=== PATIENT | female | born 1975 | race Caucasian/White ===

== ENCOUNTER → 2024-05-20 | Outpatient (CLI) | payer BC, SELFPAY | END | disposition home or self-care (01) | PROVIDERS: Referring Provider Nurse Practitioner Family; Visit Provider Nurse Practitioner Family | DX: N39.0 Urinary tract infection, site not specified (principal) | CPT/HCPCS: 87086; 87186 ==

== ENCOUNTER 2024-07-28 17:14 | Emergency (ER) | payer BC, SELFPAY ==
--- NOTE | 2024-07-28 17:19 | EKG_ITS ---
[facility] Test Date: 2024-07-28 Pat Name: BRI UREÑA Department: Room: - Gender: Female Warp Hand: : 1975 Requested By: ED Temporary Provider Order Number: [id number] Reading MD: ED Temporary Provider Measurements Intervals Dolph Rate: 88 P: 41 OK: 158 QRS: -12 QRSD: 101 T: 29 QT: 324 QTc: 393 Interpretive Statements SINUS RHYTHM Compared to ECG 05/04/2023 15:52:12 No significant changes /store/S0/[id number].pdf
[2024-07-28 17:35] VITALS: BP 151/97; PULSE 86; RESP 16; TEMP 36.8; O2SAT 99; BMI 46.6
--- NOTE | 2024-07-28 17:52 | XR_ITS ---
Examination: Duplex scan of the upper extremity, unilateral left Date and time of exam: July 28, 2024 at 1943 hrs. Indications: Left arm swelling beginning one week ago Technique: Duplex scan of the extremity veins using B-mode/grayscale imaging and Doppler spectral analysis and color flow Attention is directed to internal echogenicity, compression and augmentation involving these veins, color flow assessment, spectral analysis Findings: Major deep venous structures in the extremity demonstrate normal course and caliber. There is no evidence of deep vein thrombosis. Normal color flow and spectral analysis Impression: Negative for DVT..
--- NOTE | 2024-07-28 17:52 | XR_ITS ---
Examination: PA lateral chest 2 views Technique: Upright PA lateral chest 2 views Exam date and time: July 28, 2024 1737 hrs. Comparison May 04, 2023 Indications: Chest pain beginning one week ago Findings: Opacity at the left cardiac apex Normal heart size Right lung clear Impression: Recommend lateral chest view follow-up to exclude early pneumonia lingular segment left upper lobe
--- NOTE | 2024-07-28 17:52 | PD.EDADULT ---
ED General RME/HPI General Chief complaint: General Adult/Misc Complain Stated complaint: LEFT ARM PAIN/LEFT BREAST PAIN x7DAYS,JAW PAIN NOW Time Seen by Provider: 07/28/24 17:39 Arrival date/time: 07/28/24 17:14 RME / HPI RME / HPI narrative: 48-year-old female patient with significant history of anxiety, diabetes mellitus, morbid obesity, came in for evaluation regarding left-sided chest pain. Patient having left-sided chest pain for 1 week, it comes and goes, radiating to the left upper jaw and left upper extremity. No complaint of pain also to the left upper extremity. Denies any swelling. Denies any cough denies any fever denies any other complaints. No medications taken prior to arrival. Related Data Home Medications ?Medication ?Instructions ?Recorded ?Confirmed Pantoprazole Sodium 40 mg PO DAILY ##0 09/08/10 04/08/18 metformin 500 mg tablet 500 mg PO BID ##0 09/08/10 04/08/18 (Glucophage) ibuprofen 800 mg tablet 800 mg PO TID 03/03/18 04/08/18 norgestimate-ethinyl estradiol 1 tab PO QDAY 03/03/18 04/08/18 0.18 mg/0.215mg/0.25mg-35 mcg(28)tablet (Ortho Tri-Cyclen (28)) Allergies Allergy/AdvReac Type Severity Reaction Status Date / Time latex Allergy Severe CRACKS Verified 07/28/24 17:18 SKIN OPEN Review of Systems Review of Systems Narrative Review of Systems: Review of system reviewed and within normal limits except mentioned in HPI ED Exam Narrative Physical exam: VITAL SIGNS: Reviewed. GENERAL APPEARANCE: Alert and interactive, follows commands, no acute distress, HEAD AND FACE: Non-traumatic. ENT: PERRL, pink conjunctivitis, eyelid no trauma, Mucous membrane moist. NECK: Supple, nontender, no nuchal rigidity. CHEST: No tenderness, no crepitus, no paradoxical movement, no retractions. LUNGS: Clear, well ventilated, symmetric, no rales, no wheezing, no ronchi, no stridor, good breath sounds bilaterally. HEART: Regular rate, regular rhythm, no murmur, no gallops. ABDOMEN: Soft, positive bowel sounds, nondistended, no guarding, nontender, no rebound, no masses, RECTAL: Deferred. GENITAL: Deferred. NEUROLOGICAL: Gross motor function intact sensory function intact, Appropriate for age. MUSCULOSKELETAL: low back nontender, full range of motion. EXTREMITIES: Left upper extremity tenderness, no swelling, full range of motion. SKIN: Color pink, dry, no rash, no lacerations, no abrasions, no contusions. LYMPHATICS: Deferred. Course Quality Measures none Orders Category Date Time Status EKG (ED ONLY) *Do not use* NOW Care 07/28/24 17:19 Completed EKG (ED Only) Stat Exams 07/28/24 17:19 Ordered US venous doppler UE LT Stat Exams 07/28/24 17:52 Completed XR chest 1V Stat Exams 07/28/24 17:52 Completed B-Type Natriuretic Peptide Stat Lab 07/28/24 18:06 Completed CBC Stat Lab 07/28/24 18:06 Completed Comprehensive Metabolic Panel Stat Lab 07/28/24 18:06 Completed Partial Thromboplastin Time Stat Lab 07/28/24 18:06 Completed Troponin I Stat Lab 07/28/24 18:06 Completed Aspirin Med 07/28/24 17:52 Discontinued 325 mg PO X1 ONE Vital Signs Vital signs: Vital Signs Temperature 98.2 F 07/28/24 17:35 Pulse Rate 86 07/28/24 17:35 Respiratory Rate 16 07/28/24 17:35 Blood Pressure 151/97 H 07/28/24 17:35 Pulse Oximetry (%) 99 07/28/24 17:35 Oxygen Delivery Method Room Air 07/28/24 17:35 [facility] Patient data External records reviewed:: None Clinical information provided by:: patient Social determinants that could affect healthcare access:: none Patient has the following chronic illnesses:: anxiety How is presenting disease/condition affected by chronic disease/condition?: exacerbated by Evaluation data The following diagnostics were reviewed and interpreted by me:: lab results, radiology exam(s) and EKG tracing(s) Lab and/or radiology exams considered but not ordered:: None Interpretation Summary: Patient workup today all came back normal. Including normal troponin EKG showed normal sinus rhythm ventricular at of 88 bpm, no ST segment elevation depression noted. Chest x-ray showed possible pneumonia however patient is not having any cough or fever. Medications Medications considered but not ordered:: None Medication administrations:: Medication Administration History Discontinued Medications Aspirin (Aspirin 325 Mg Tablet) 325 mg PO X1 ONE Stop: 07/28/24 17:53 Last Admin: 07/28/24 18:07 Dose: 325 mg Documented By: JULIAN Aspirin Consultations Consultation(s) initiated? (list below): No Diagnosis Differential Diagnosis ED Complaint MDM: Chest pain, ACS, DVT Most likely diagnosis given after review of the tests above:: Chest pain noncardiac Admission Indicated Admission indicated?: not indicated Explain why admission is indicated or not indicated:: None Admission Request Was there a request for admission?: No Disposition Plan Disposition Plan: Discharge Discharge Attestation Discharge Attestation: The patient and all family members were given an opportunity to ask questions and understood the discharge instructions. Discharge instructions specifically effects, indications for sooner follow up or return to the emergency department, and the expected course of current diagnosis. Patient condition: Stable Medical Decision Making MDM Narrative MDM Narrative: 48-year-old female patient with significant history of anxiety, diabetes mellitus, morbid obesity, came in for evaluation regarding left-sided chest pain. Patient having left-sided chest pain for 1 week, it comes and goes, radiating to the left upper jaw and left upper extremity. No complaint of pain also to the left upper extremity. Denies any swelling. Denies any cough denies any fever denies any other complaints. No medications taken prior to arrival. Patient's cardiac workup, all came back unremarkable. EKG also came back unremarkable. Troponin is normal. Patient is probably having anxiety. Chest x-ray showed possible pneumonia however patient is not having any cough ultrasound of the left upper extremity is negative for DVT Differential Diagnosis Differential Diagnosis: Chest pain, ACS, DVT Lab Data 07/28/24 18:06 07/28/24 18:06 Labs: Lab Results 07/28/24 Range/Units 18:06 WBC 11.1 H (3.6-11.0) Thou/mm3 RBC 4.10 (4.00-5.20) Miln/mm3 Hgb 11.6 L (12.0-16.0) g/dL Hct 35.2 L (36.0-46.0) % MCV 86 (80-100) fL MCH 28.3 (25.0-35.0) pg MCHC 33.0 (31.0-37.0) g/dl RDW Std Deviation 44.2 (36.4-46.3) fL Plt Count 348 (140-440) Thou/mm3 Neut % (Auto) 64 (37-80) % Lymph % (Auto) 26 (10-50) % [place] % (Auto) 7 (0-12) % Eos % (Auto) 2 (0-10) % Baso % (Auto) 1 (0-2.5) % Neut # (Auto) 7.1 (1.8-7.7) Thou/mm3 Lymph # (Auto) 2.9 (1.0-4.8) Thou/mm3 [place] # (Auto) 0.7 (0.0-0.8) Thou/mm3 Eos # (Auto) 0.3 (0.0-0.5) Thou/mm3 Baso # (Auto) 0.1 (0.0-0.2) Thou/mm3 Immature Gran # (Auto) 0.05 H (0.00-0.00) Thou/mm3 Absolute Nucleated RBC 0.00 (0.00-0.00) Thou/mm3 Immature Gran % 1 H (0-0) % Nucleated RBC % 0 (0) /100 WBC APTT 22.2 (22.0-36.0) Seconds Sodium 139 (136-145) mMol/L Potassium 4.3 (3.4-5.1) mMol/L Chloride 104 (98-107) mMol/L Carbon Dioxide 25.0 (20.0-31.0) mMol/L Anion Gap 10 (7-16) BUN 18 (9-23) mg/dL Creatinine 1.0 (0.6-1.3) mg/dL Estim Creat Clear Calc 99.9 (>60) mL/min eGFR > 60 (60 - ) See Note BUN/Creatinine Ratio 18 (12-20) Ratio Glucose 135 H (74-106) mg/dL Calculated Osmolality 281 (275-295) Calcium 10.4 (8.3-10.6) mg/dL Corrected Calcium 10.4 H (8.5-10.1) mg/dL Total Bilirubin 0.4 (0.3-1.2) mg/dL AST 58 H (0-34) U/L ALT 74 H (10-49) U/L Alkaline Phosphatase 76 (46-116) U/L Troponin I < 0.002 (0.0-0.045) ng/mL B-Natriuretic Peptide < 20 (0-100) pg/mL Total Protein 7.4 (5.7-8.2) gm/dL Albumin 4.6 (3.5-5.0) gm/dL Globulin 2.8 (2.3-3.5) gm/dL Albumin/Globulin Ratio 1.6 (1.2-2.2) Discharge Plan Plan Patient Disposition: HOME (Self Care) Disposition Comment: Stable Prescriptions/Referrals Prescriptions/Med Rec: No Action metformin [Glucophage] 500 MG tablet 500 mg PO BID Qty: 0 Pantoprazole Sodium 40 MG TABLET.DR 40 mg PO DAILY Qty: 0 ibuprofen 800 mg Tablet 800 mg PO TID norgestimate-ethinyl estradiol [Ortho Tri-Cyclen (28)] 0.18/0.215/0.25 mg-35 mcg (28) Tablet 1 tab PO QDAY Problem List Clinical Impression: Non-cardiac chest pain, Anxiety Patient/Caregiver Discharge Instructions Discharge Activity: activity as tolerated Education Materials: ED Anxiety Reaction Additional Instructions: Thank you for the opportunity for serving you today. You are stable for discharged . You are advised to: Follow-up with your PCP in 1 to 2 days Return to ED for worsening of symptoms Increase oral fluids Print Language: Icelandic Stand Alone Forms: Katerina Award Info., Patient Portal Info Letter XOCHITL/ABIGAIL Supervising Physician XOCHITL/ABIGAIL Supervising Physician: MD ede
[2024-07-28] MEDS: Aspirin 325 MG TABLET PO (18:07)
[2024-07-28 18:27] LABS: Basophils # (Auto) 0.1 Thou/mm3 (0.0-0.2); Basophils % (Auto) 1 % (0-2.5); Eosinophils # (Auto) 0.3 Thou/mm3 (0.0-0.5); Eosinophils % (Auto) 2 % (0-10); Hematocrit 35.2 % (36.0-46.0); Hemoglobin 11.6 g/dL (12.0-16.0); Immature Granulocytes % (Auto) 1 % (0-0); Immature Granulocytes Auto 0.05 Thou/mm3 (0.00-0.00); Lymphocytes # (Auto) 2.9 Thou/mm3 (1.0-4.8); Lymphocytes % (Auto) 26 % (10-50); Mean Corpuscular Hemoglobin 28.3 pg (25.0-35.0); Mean Corpuscular Volume 86 fL (80-100); Monocytes # (Auto) 0.7 Thou/mm3 (0.0-0.8); Monocytes % (Auto) 7 % (0-12); Neutrophils # (Auto) 7.1 Thou/mm3 (1.8-7.7); Neutrophils % (Auto) 64 % (37-80); Nucleated Red Blood Cell % 0 /100 WBC (0); Platelet Count 348 Thou/mm3 (140-440); RDW Standard Deviation 44.2 fL (36.4-46.3); White Blood Count 11.1 Thou/mm3 (3.6-11.0)
[2024-07-28 18:31] LABS: B-Type Natriuretic Peptide < 20 pg/mL (0-100)
[2024-07-28 18:32] LABS: Alanine Aminotransferase 74 U/L (10-49); Albumin, Serum 4.6 gm/dL (3.5-5.0); Albumin/Globulin Ratio 1.6 (1.2-2.2); Alkaline Phosphatase 76 U/L (46-116); Anion Gap 10 (7-16); Aspartate Amino Transferase 58 U/L (0-34); BUN/Creatinine Ratio 18 Ratio (12-20); Bilirubin,Total 0.4 mg/dL (0.3-1.2); Blood Urea Nitrogen 18 mg/dL (9-23); Calcium 10.4 mg/dL (8.3-10.6); Calcium (Corrected) 10.4 mg/dL (8.5-10.1); Chloride 104 mMol/L (98-107); Estimated Creatinine Clearance 99.9 mL/min (>60); Globulin 2.8 gm/dL (2.3-3.5); Glucose 135 mg/dL (74-106); Osmolality,Calculated 281 (275-295); Potassium 4.3 mMol/L (3.4-5.1); Sodium 139 mMol/L (136-145); Total Protein 7.4 gm/dL (5.7-8.2); Troponin I < 0.002 ng/mL (0.0-0.045); eGFR > 60 See Note
[2024-07-28 18:55] LABS: Partial Thromboplastin Time 22.2 Seconds (22.0-36.0)
[2024-07-28 21:51] VITALS: BP 158/89; PULSE 76; RESP 15; TEMP 36.6; O2SAT 97
--- NOTE | 2024-07-28 21:55 | PC.NURSE ---
Pt to room 12 at this time from lobby; assumed care.
--- NOTE | 2024-07-28 22:05 | PC.NURSE ---
SHANNON AtkinsP at the bedside at this time.
== END 2024-07-28 22:17 | disposition home or self-care (01) ==
LOC: SERX 22:29
PROVIDERS: Nurse Practitioner Family; Emergency Provider Emergency Medicine
DX: F41.9 Anxiety disorder, unspecified (principal); R07.89 Other chest pain
CPT/HCPCS: 36415; 71045; 80053; 83880; 84484; 85025; 85730; 93005; 93971; 99284; A9270

== ENCOUNTER 2024-12-02 00:45 | Emergency (ER) | payer BC, SELFPAY ==
[2024-12-02 00:46] VITALS: BMI 46.5
[2024-12-02 01:10] VITALS: BP 130/82; PULSE 88; RESP 18; TEMP 36.6; O2SAT 99
--- NOTE | 2024-12-02 01:18 | XR_ITS ---
EXAMINATION: Ankle, right 3 views . Technique: Ankle AP, oblique, lateral 3 views Date and time of exam: Dec 02 2024 1338 hours INDICATIONS: Injury to the ankle today, ankle pain FINDINGS: No acute fracture Bimalleolar soft tissue swelling No ankle dislocation. IMPRESSION: No acute fracture
--- NOTE | 2024-12-02 01:19 | PD.EDANKLE ---
Lower Extremity Injury RME/HPI General Chief Complaint: Ankle/Foot Injury Stated Complaint: R ANKLE INURY Time Seen by Provider: 12/02/24 01:17 Arrival date/time: 12/02/24 00:45 49F with history of HTN presents to ED with R ankle pain/swelling after she twisted it 1 week ago. Limitations: no limitations Related Data Home Medications ?Medication ?Instructions ?Recorded ?Confirmed Pantoprazole Sodium 40 mg PO DAILY ##0 09/08/10 04/08/18 metformin 500 mg tablet 500 mg PO BID ##0 09/08/10 04/08/18 (Glucophage) ibuprofen 800 mg tablet 800 mg PO TID 03/03/18 04/08/18 norgestimate-ethinyl estradiol 1 tab PO QDAY 03/03/18 04/08/18 0.18mg/0.215mg/0.25mg-0.035mg(28)tablet (Ortho Tri-Cyclen (28)) Allergies Allergy/AdvReac Type Severity Reaction Status Date / Time latex Allergy Severe CRACKS Verified 12/02/24 00:51 SKIN OPEN Review of Systems Review of Systems Systems Reviewed: All systems reviewed, normal except as documented Constitutional Constitutional: Reports system reviewed and no additional complaints, except as documented, Denies fever(s) and Denies headache(s) ENT Ears, Nose, Mouth, and Throat: Denies disequilibrium and Denies headache(s) Cardiovascular Cardiovascular: Reports system reviewed and no additional complaints, except as documented, Denies chest pain and Denies dyspnea Respiratory Respiratory: Reports system reviewed and no additional complaints, except as documented, Denies cough and Denies dyspnea Gastrointestinal Gastrointestinal: Reports system reviewed and no additional complaints, except as documented, Denies abdominal pain, Denies nausea and Denies vomiting Musculoskeletal Musculoskeletal: Reports as per HPI, Reports arthralgias and Reports joint swelling Neurologic Neurologic: Reports system reviewed and no additional complaints, except as documented, Denies confusion, Denies disequilibrium and Denies headache(s) Psychiatric Psychiatric: Denies confusion Past Medical History Past Medical History NEUROLOGIC: Negative Neurological Disorders or Seizures CARDIAC: Positive Cardiac Disorders, Hypercholesterolemia and Hypertension; Negative Congestive Heart Failure RESPIRATORY: Negative Chronic Obstructive Pulmonary Disease (COPD) GASTROINTESTINAL: Positive Gastrointestinal Disorders (HIATAL HERNIA) and Gastroesophageal Reflux Disease GENITOURINARY: Negative Genitourinary Disorders or Renal Disease MUSCULOSKELETAL: Positive Musculoskeletal Disorders and Arthritis ENDOCRINE: Positive Diabetes Mellitus Type 2 (PRE-DIABETIC); Negative Diabetes Mellitus Type 1 HEMATOLOGIC: Negative Blood Disorders OTHER HISTORY: Negative Blood Transfusions, Blood Transfusion Reaction or Anesthesia Reactions Family History FAMILY HISTORY: Positive Family Cardiac Disorders (MOTHER- MVP) Surgical History SURGICAL: Positive Tonsillectomy and Abdominal Surgery Social History SMOKING STATUS: Never smoker ED Exam General Limitations: Present no limitations General appearance: Present alert and in no apparent distress Head Head exam: Present atraumatic Eye Eye exam: Present normal appearance, PERRL and EOMI ENT ENT exam: Present normal exam, normal oropharynx and mucous membranes moist Neck Neck exam: Present normal inspection, full ROM and trachea midline Chest Chest inspection: Present normal inspection and symmetric chest wall rise Respiratory Respiratory exam: Present normal lung sounds bilaterally Cardiovascular Cardiovascular exam: Present regular rate, normal rhythm and normal heart sounds Abdominal Exam Abdominal exam: Present soft and normal bowel sounds Extremities Exam Extremities exam: Present full ROM Expanded Lower Extremity Exam Foot/toe exam: Present tenderness (R) and swelling Back Exam Back exam: Present normal inspection and full ROM Neurological Exam Neurological exam: Present alert, oriented X3 and CN II-XII intact Psychiatric Psychiatric exam: Present normal affect and normal mood Skin Skin exam: Present warm, dry, intact and normal color Course Quality Measures none Orders Category Date Time Status Splint / Immobilizer STAT Care 12/02/24 02:35 Active XR ankle comp RT min 3V Stat Exams 12/02/24 01:18 Taken Ketorolac Inj [Toradol Inj] Med 12/02/24 02:41 Once 60 mg IM X1 ONE Vital Signs Vital signs: Vital Signs Temperature 98 F 12/02/24 01:10 Pulse Rate 88 12/02/24 01:10 Respiratory Rate 18 12/02/24 01:10 Blood Pressure 130/82 12/02/24 01:10 Pulse Oximetry (%) 99 12/02/24 01:10 Oxygen Delivery Method Room Air 12/02/24 01:10 O2 at 99% on RA and WNLs Extremity Injury, Lower MDM Narrative MDM Narrative:: 49F with history of HTN presents to ED with R ankle pain/swelling after she twisted it 1 week ago. Physical exam reveals R ankle swelling and tenderness. ROM limited. Skin is warm. Patient is afebrile, calm, and alert. Wet XR read no fx pending official report. Will splint just in case. Patient data External records reviewed:: [facility] previous records Clinical information provided by:: patient Social determinants that could affect healthcare access:: none Patient has the following chronic illnesses:: HTN How is presenting disease/condition affected by chronic disease/condition?: exacerbated by Evaluation data The following diagnostics were reviewed and interpreted by me:: radiology exam(s) Lab and/or radiology exams considered but not ordered:: ordered Interpretation Summary: above Medications / Prescriptions Medications or Prescriptions considered but not ordered:: ordered Medication administrations:: Medication Administration History Ketorolac Tromethamine (Ketorolac Inj 60 Mg/2 Ml Vial) 60 mg IM X1 ONE Stop: 12/02/24 02:42 above Consultations Consultation(s) initiated? (list below): No Diagnosis Extremity Injury, Lower Differential Diagnosis: ankle sprain and strain, acute internal derangement of knee, puncture wound of foot, fracture of toe and ankle fracture Most likely diagnosis given after review of the tests above:: ankle swelling Admission Indicated Admission indicated?: not indicated Admission Request Was there a request for admission?: No Disposition Plan Disposition Plan: Discharge Discharge Attestation Discharge Attestation: The patient and all family members were given an opportunity to ask questions and understood the discharge instructions. Discharge instructions specifically effects, indications for sooner follow up or return to the emergency department, and the expected course of current diagnosis. Patient condition: Stable Discharge Plan Plan Patient Disposition: HOME (Self Care) Discharge Disposition comment: Stable Prescriptions/Referrals Prescriptions/Med Rec: No Action metformin [Glucophage] 500 MG tablet 500 mg PO BID Qty: 0 Pantoprazole Sodium 40 MG TABLET.DR 40 mg PO DAILY Qty: 0 ibuprofen 800 mg Tablet 800 mg PO TID norgestimate-ethinyl estradiol [Ortho Tri-Cyclen (28)] 0.18/0.215/0.25 mg-35 mcg (28) Tablet 1 tab PO QDAY Problem List Clinical Impression: Ankle swelling Patient/Caregiver Discharge Instructions Education Materials: ED Ankle Sprain (Adult) Additional Instructions: Please follow-up with PCP within 24-48 hours and return immediately if symptoms worsen. If problem persists, recommend outpatient PT and/or MRI follow-up. In the meantime, rest, use ice/heat, and/or compression. Print Language: Wallisian Stand Alone Forms: Patient Portal Info Letter PA/IT SECURITY MANAGER Supervising Physician XOCHITL/ABIGAIL Supervising Physician: Dr. Nunez
[2024-12-02] MEDS: KETOROLAC INJ 60 MG/2 ML VIAL IM (03:28)
--- NOTE | 2024-12-02 03:36 | PC.NURSE ---
SPLINT APPLIED BY FULFILLMENT SPECIALIST
== END 2024-12-02 03:55 | disposition home or self-care (01) ==
LOC: SERX 04:09
PROVIDERS: Emergency Provider Emergency Medicine; PCP Family Medicine
DX: S99.911A Unspecified injury of right ankle, initial encounter (principal); X50.1XXA Overexertion from prolonged static or awkward postures, initial encounter
CPT/HCPCS: 73610; 99283; J1885

== ENCOUNTER → 2025-01-23 | Outpatient (CLI) | payer BC, SELFPAY ==
--- NOTE | 2025-01-23 08:15 | XR_ITS ---
Examination: MRI right foot without contrast Date and time of exam: January 23, 2025 0905 hours INDICATIONS: Pain and swelling beginning December 02, 2024 Technique: Multiple axial sagittal and coronal images of the right foot have been obtained with the Siemens high-resolution 1.5 Jennifer MRI scanner. Images obtained include T2-weighted fat-suppressed sagittal sections, TR 3500, TE 46, T2 weighted coronal fat suppressed images, TR 3050, TE 84, T2-weighted transverse fat suppressed images, TR 3260, TE 63, proton density transverse images, TR 4720 TE 46, and T1 weighted coronal images, TR 560, TE 13. Findings: Significant thickening Achilles tendon Mild to moderate plantar fasciitis Large ankle effusion with increased signal in the effusion Increased signal in the distal tibia and distal fibula as well as talus Extensive edema dorsum of the foot Diffuse flexor tendinitis IMPRESSION: Achilles tendinosis Mild to moderate plantar fasciitis Large ankle effusion with increased signal in the effusion, differential would include pigmented villonodular synovitis Increased signal in the distal tibia and distal fibula and talus, consider Charcot joint Recommend this patient return for MRI foot post intravenous contrast
== END | disposition home or self-care (01) ==
PROVIDERS: PCP Nurse Practitioner Family; Referring Provider Nurse Practitioner Family; Visit Provider Nurse Practitioner Family
DX: M76.61 Achilles tendinitis, right leg (principal); M72.2 Plantar fascial fibromatosis; M25.471 Effusion, right ankle
CPT/HCPCS: 73718

== ENCOUNTER → 2025-05-03 | Outpatient (CLI) | payer BC, SELFPAY | END | disposition home or self-care (01) | PROVIDERS: PCP Nurse Practitioner Family; Referring Provider Nurse Practitioner Family; Visit Provider Nurse Practitioner Family | DX: N39.0 Urinary tract infection, site not specified (principal) | CPT/HCPCS: 87086 ==

== ENCOUNTER → 2025-05-18 | Outpatient (CLI) | payer BC, SELFPAY ==
[2025-05-18 14:29] LABS: Collection Type, Urine Clean Catch; RBC,Urine 0 /hpf (0-3)
[2025-05-18 16:18] LABS: Bacteria,Urine Rare; Bilirubin,Urine Negative (Negative); Blood,Urine Negative (Negative); Clarity,Urine Clear (Clear/Hazy); Color,Urine Lt-Yellow (Lt Yel-Yel); Glucose, Urine Negative (Negative); Ketones,Urine Negative (Negative); Leukocyte Esterase,Urine Negative (Negative); Nitrite,Urine Negative (Negative); PH,Urine 6.5 (5.0-7.0); Protein,Urine Negative (Neg - Trace); Specific Gravity,Urine 1.011 (1.001-1.035); Squamous Epithelial Cell,Urine < 1 /hpf (0-5); Urobilinogen,Urine Negative mg/dL (0.0-1.0); WBC,Urine < 1 /hpf (0-5)
== END | disposition home or self-care (01) ==
LOC: SLDO 14:21
PROVIDERS: PCP Family Medicine; Referring Provider Family Medicine; Visit Provider Family Medicine
DX: N39.0 Urinary tract infection, site not specified (principal)
CPT/HCPCS: 81001; 87086

== ENCOUNTER 2025-06-12 17:00 | Inpatient (IN) | payer BC, SELFPAY ==
[2025-06-12 17:00] VITALS: BMI 43.2
--- NOTE | 2025-06-12 17:46 | XR_ITS ---
Examination: Duplex scan of the lower extremity, unilateral right Date and time of exam: June 12, 2025, 1754 hours INDICATIONS: Right ankle and leg swelling and pain beginning November 2024 Technique: Duplex scan of the extremity veins using B-mode/grayscale imaging and Doppler spectral analysis and color flow Attention is directed to internal echogenicity, compression and augmentation involving these veins, color flow assessment, spectral analysis Findings: Major deep venous structures in the extremity demonstrate normal course and caliber. Leg edema precludes diagnostic visualization right peroneal vein There is no evidence of deep vein thrombosis. Normal color flow and spectral analysis Impression: No DVT demonstrated
--- NOTE | 2025-06-12 17:46 | XR_ITS ---
EXAMINATION: Ankle, right 3 views. Technique: Ankle AP, oblique, lateral 3 views Date and time of exam: June 12, 2025, 1824 hours, comparison December 02, 2024 INDICATIONS: Ankle pain and swelling beginning 4 days ago FINDINGS: Moderate narrowing tibiotalar joint Bony erosions involving the dome of the talus and distal articulating surface of the tibia Large ankle effusion as well as prominent bimalleolar soft tissue swelling IMPRESSION: Suspicious for osteomyelitis tibiotalar joint, recommend MRI ankle without contrast follow-up Consider fluoroscopically-guided aspiration of the ankle joint follow-up
--- NOTE | 2025-06-12 17:47 | PD.EDRME ---
Rapid Medical Screening Exam RME Arrival date/time: 06/12/25 17:00 49-year-old female with no known medical history presents to the emergency room with a chief complaint of right lower extremity swelling and tenderness x 4 months I have greeted and performed a focused initial assessment of this patient. A comprehensive ED assessment and evaluation of the patient, analysis of all test results, and completion of the medical decision making process will be conducted by additional ED providers. Chief Complaint: Ankle/Foot Injury Time Seen by Provider: 06/12/25 17:32 Vital signs reviewed by provider: Yes Exam: Right lower extremity swelling, tenderness, erythema Clear bilateral Clinical Impression: Cellulitis/DVT
[2025-06-12 17:50] VITALS: BP 169/101; PULSE 114; RESP 19; TEMP 37.8; O2SAT 98
[2025-06-12 18:47] LABS: Lactate (Lactic Acid) 1.2 mMol/L (0.4-2.0)
[2025-06-12] MEDS: ACETAMINOPHEN 500 MG TABLET 1000 MG PO (18:47)
[2025-06-12 18:57] LABS: Basophils # (Auto) 0.0 Thou/mm3 (0.0-0.2); Basophils % (Auto) 0 % (0-2.5); Eosinophils # (Auto) 0.0 Thou/mm3 (0.0-0.5); Eosinophils % (Auto) 0 % (0-10); Hematocrit 35.3 % (36.0-46.0); Hemoglobin 11.5 g/dL (12.0-16.0); Immature Granulocytes Auto 0.06 Thou/mm3 (0.00-0.00); Lymphocytes # (Auto) 1.1 Thou/mm3 (1.0-4.8); Lymphocytes % (Auto) 7 % (10-50); Mean Corpuscular HGB Conc 32.6 g/dl (31.0-37.0); Mean Corpuscular Hemoglobin 28.2 pg (25.0-35.0); Mean Corpuscular Volume 87 fL (80-100); Monocytes # (Auto) 1.2 Thou/mm3 (0.0-0.8); Monocytes % (Auto) 8 % (0-12); Neutrophils # (Auto) 13.4 Thou/mm3 (1.8-7.7); Neutrophils % (Auto) 85 % (37-80); Nucleated Red Blood Cell # 0.00 Thou/mm3 (0.00-0.00); Nucleated Red Blood Cell % 0 /100 WBC (0); Platelet Count 346 Thou/mm3 (140-440); RDW Standard Deviation 43.6 fL (36.4-46.3); Red Blood Count 4.08 Miln/mm3 (4.00-5.20); White Blood Count 15.8 Thou/mm3 (3.6-11.0)
[2025-06-12 19:08] LABS: Sed Rate (ESR) 53 mm/hr (0-20)
[2025-06-12 19:14] LABS: Collection Type, Urine Clean Catch
[2025-06-12 19:25] LABS: Amorphous Crystals,Urine Present (Absent); Bilirubin,Urine Negative (Negative); Blood,Urine Negative (Negative); Clarity,Urine Clear (Clear/Hazy); Color,Urine Yellow (Lt Yel-Yel); Glucose, Urine Negative (Negative); Hyaline Casts,Urine 2 /hpf (0-1); Ketones,Urine Trace (Negative); Leukocyte Esterase,Urine Positive (Negative); Nitrite,Urine Negative (Negative); PH,Urine 6.0 (5.0-7.0); Protein,Urine 1+ (Neg - Trace); RBC,Urine 3 /hpf (0-3); Specific Gravity,Urine 1.029 (1.001-1.035); Squamous Epithelial Cell,Urine 1 /hpf (0-5); Urobilinogen,Urine Negative mg/dL (0.0-1.0); WBC,Urine 2 /hpf (0-5)
[2025-06-12 19:42] LABS: Alanine Aminotransferase 11 U/L (10-49); Albumin, Serum 4.8 gm/dL (3.5-5.0); Albumin/Globulin Ratio 1.7 (1.2-2.2); Alkaline Phosphatase 86 U/L (46-116); Anion Gap 9 (7-16); Aspartate Amino Transferase < 10 U/L (0-34); BUN/Creatinine Ratio 11 Ratio (12-20); Bilirubin,Total 0.5 mg/dL (0.3-1.2); Blood Urea Nitrogen 11 mg/dL (9-23); Calcium 10.0 mg/dL (8.3-10.6); Calcium (Corrected) 10.0 mg/dL (8.5-10.1); Carbon Dioxide 27.3 mMol/L (20.0-31.0); Chloride 103 mMol/L (98-107); Creatinine (Component) 1.0 mg/dL (0.6-1.3); Estimated Creatinine Clearance 88.4 mL/min (>60); Globulin 2.9 gm/dL (2.3-3.5); Glucose 185 mg/dL (74-106); Osmolality,Calculated 281 (275-295); Potassium 3.9 mMol/L (3.4-5.1); Procalcitonin 0.15 ng/ml (0.0-0.49); Sodium 139 mMol/L (136-145); Total Protein 7.7 gm/dL (5.7-8.2); eGFR > 60 See Note
--- NOTE | 2025-06-12 21:28 | EDNOTE_ITS ---
ED General RME/HPI General Chief complaint: Ankle/Foot Injury Stated complaint: right foot swollen Time Seen by Provider: 06/12/25 17:32 Arrival date/time: 06/12/25 17:00 RME / HPI RME / HPI narrative: 06/12/25 17:00 49-year-old female with no known medical history presents to the emergency room with a chief complaint of right lower extremity swelling and tenderness. Patient states that initially the swelling started sometime around November 2024 and apparently at that time she went to the ED but her x-ray was negative. Patient has been having progressively worsening right lower extremity swelling and apparently recently in the past week or so has been associated with some tenderness and difficulty ambulating. Patient states that the pain is so severe that she is unable to move her foot and has resorted to using her left foot for ambulation mostly. She says that her last A1c was in the six and denies having any traumatic events, cuts or bites in that area. Patient also states that she has been having some fever and chills for the past couple days but denies any concerning symptoms such as chest pain, shortness of breath, dizziness diarrhea, vomiting or any bleeding. On examination, patient is awake and answer questions appropriately, HEENT exam is largely unremarkable, cardiac and lung examination unremarkable, abdominal exam largely unremarkable. Patient's right lower extremity is swollen near the talofibular area with mild erythema noted. There is also some warmth noted and upon attempting to dorsiflex the right lower extremity she screams in pain. Patient has 2 out of 4 SIRS criteria reporting tachycardia and WBC. Differentials at this time include: Osteoarthritis, ankle joints septic arthritis, avascular necrosis, osteoarthritis Labs show leukocytosis with a WBC of 15.8, mild left shift 85% neutrophil, ESR is elevated at 53, CRP is also elevated at 25.1, rest of laboratory findings largely unremarkable. Ankle x-ray does not show any fractures but there is moderate narrowing of the tibiofibular joint, bony erosions involving the dome of the talus and distal articulating surface of the tibia including a large ankle effusion suspicious for osteomyelitis of the tibia talar joint, venous Doppler study is negative for DVT, chest x-ray and EKG are pending. #Osteomyelitis of the right foot, #Leukocytosis #Rule out septic joint arthritis right ankle As noted above based on clinical, laboratory and imaging findings Plan: Started patient on IV Zosyn 3.375 every 6 along with IV Zosyn, pharmacy to dose IV fluid bolus for sepsis protocol ordered due to patient needing 2 out of 4 SIRS criteria with source of infection Blood cultures ordered Chest x-ray and EKG pending Orthopedic surgeon on-call was called and presented the patient; recommendation is to do an MRI with and without contrast of the right foot along with joint aspiration. Depending on MRI findings, recommendation is for surgical management on 06/14. Called admitting hospitalist team who agreed to admit the patient for further workup and management I have greeted and performed a focused initial assessment of this patient. A comprehensive ED assessment and evaluation of the patient, analysis of all test results, and completion of the medical decision making process will be conducted by additional ED providers. Exam: Right lower extremity swelling, tenderness, erythema Clear bilateral Impression: Cellulitis/DVT Related Data Home Medications ?Medication ?Instructions ?Recorded ?Confirmed Pantoprazole Sodium 40 mg PO DAILY ##0 09/08/10 04/08/18 metformin 500 mg tablet 500 mg PO BID ##0 09/08/10 0 04/08/18 (Glucophage) ibuprofen 800 mg tablet 800 mg PO TID 03/03/1804/08 norgestimate-ethinyl estradiol 1 tab PO QDAY 03/03/18 04/08/18 0.18mg/0.215mg/0.25mg-0.035mg(28)tablet (Ortho Tri-Cyclen (28)) Allergies Allergy/AdvReac Type Severity Reaction Status Date / Time latex Allergy Severe CRACKS Verified 06/12/25 17:02 SKIN OPEN ED Exam Narrative Physical exam: Physical Exam: GENERAL: Awake, answering questions appropriately, appears stated age, morbidly obese HEENT: NC/AT. Moist mucosa. PERRLA/EOMI. CARDIO: Heart RRR, no obvious murmurs, no JVD. PULM: No coughing or visible SOB. Lungs CTA B/L. GI: Abdomen soft, NT/ND, +BS. SKIN/MSK/EXT: Right lower extremity is swollen near the talofibular area with mild erythema noted. There is also some warmth noted and upon attempting to dorsiflex the right lower extremity she screams in pain. No wounds/rashes.amputations noted. +1 pedal pulses on right extremity, left lower extremity +2. NEURO: Oriented x3, Moves extremities x4 (right lower foot able to move but with pain), no focal neurologic deficits noted Course Quality Measures VTE prophylaxis Orders Category Date Time Status COVID-19 Screening Questionnaire NOW Care 06/12/25 21:53 Active Methods Specialist STAT Care 06/12/25 21:51 Active Continuous Pulse Oximetry STAT Care 06/12/25 21:51 Active Decision to Admit X1 Care 06/12/25 21:53 Completed EKG (ED ONLY) *Do not use* NOW Care 06/12/25 21:54 Completed In and Out Catheter X1PRN Care 06/12/25 21:51 Active Insert IV NOW Care 06/12/25 21:51 Completed MRI Screening NOW Care 06/12/25 21:42 Active Strict Intake and Output Routine Care 06/12/25 21:51 Ordered Consult to Orthopedic Stat Cons 06/12/25 21:54 Ordered CXRP [XR chest 1V portable] Stat Exams 06/12/25 21:53 Taken EKG (ED Only) Stat Exams 06/12/25 21:54 Draft IR joint aspiration Routine Exams 06/12/25 Ordered MR foot RT wo/w con Routine Exams 06/13/25 08:00 Ordered US venous doppler LE RT Stat Exams 06/12/25 17:46 Completed XR ankle comp RT min 3V Stat Exams 06/12/25 17:46 Completed B-Type Natriuretic Peptide Stat Lab 06/12/25 21:45 Received Blood Culture (Lab) Stat Lab 06/12/25 18:38 Received CBC Stat Lab 06/12/25 18:35 Completed CMP [Comprehensive Metabolic Panel] Stat Lab 06/12/25 18:35 Completed CRP [C-Reactive Protein] Stat Lab 06/12/25 18:35 Completed ESR [Sed Rate (ESR)] Stat Lab 06/12/25 18:35 Completed LDH (Lactate Dehydrogenase) Stat Lab 06/12/25 21:45 Received Lactate (Lactic Acid) Stat Lab 06/12/25 18:35 Completed Magnesium Stat Lab 06/12/25 21:45 Received Partial Thromboplastin Time Stat Lab 06/12/25 21:45 Received Phosphorous Stat Lab 06/12/25 21:45 Received Procalcitonin Stat Lab 06/12/25 18:35 Completed Procalcitonin Stat Lab 06/12/25 21:45 Received Prothrombin Time with INR Stat Lab 06/12/25 21:45 Received UA [Urinalysis] Stat Lab 06/12/25 19:07 Completed Urinalysis, C/S if Indicated Stat Lab 06/12/25 21:51 Ordered Urine Culture Stat Lab 06/12/25 19:07 Received Acetaminophen Tab [Tylenol ES Tab] Med 06/12/25 17:50 Discontinued 1,000 mg PO X1 ONE Piper/Tazo 3.375 gm Premix [Zosyn] Med 06/12/25 21:29 Discontinued 3.375 gm in 50 ml IV X1 Ringers Lactated 1000 ml [Lactated Ringers] 1,000 ml Med 06/12/25 21:29 Active IV 125 mls/hr Ringers Lactated 1000 ml [Lactated Ringers] 1,710 ml Med 06/12/25 21:51 Active IV 1,710 mls/hr Vancomycin Pharmacy to Dose Med 06/13/25 09:00 Pending 1 each IV QDAY Vancomycin/Ns 1 gm Ivpb 200 ml Med 06/12/25 22:00 Active IV Q100M Vital Signs Vital signs: Vital Signs Temperature 100.1 F 06/12/25 17:50 Pulse Rate 114 H 06/12/25 17:50 Respiratory Rate 19 06/12/25 17:50 Blood Pressure 169/101 H 06/12/25 17:50 Pulse Oximetry (%) 98 06/12/25 17:50 Oxygen Delivery Method Room Air 06/12/25 17:50 Discharge Plan Plan Patient Disposition: Admit Acute Care w/in Hospital Prescriptions/Referrals Prescriptions/Med Rec: No Action metformin [Glucophage] 500 MG tablet 500 mg PO BID Qty: 0 Pantoprazole Sodium 40 MG TABLET.DR 40 mg PO DAILY Qty: 0 ibuprofen 800 mg Tablet 800 mg PO TID norgestimate-ethinyl estradiol [Ortho Tri-Cyclen (28)] 0.18/0.215/0.25 mg-35 mcg (28) Tablet 1 tab PO QDAY Referrals: No Primary/Family,Physician [Primary Care Provider] - In 1 week Problem List Clinical Impression: Sepsis, Osteomyelitis Patient/Caregiver Discharge Instructions Print Language: Icelandic Stand Alone Forms: Katerina Award Info., Patient Portal Info Letter MD Attestation Attestation I, Dr. Vu, have reviewed the history, exam, and assessment of the patient. I have evaluated the patient independently and agree with the plan of care documented by the resident Dr. Ortiz. All diagnostic studies were reviewed and discussed. I confirm the diagnosis as documented by the resident. I was present during the Medical Decision Making for this patient. The patient?s plan of care was created between myself and the resident and consistent with our discussion of the patient?s case. MDM Narrative [facility] hospital course (for use when minimal MDM required): 06/12/25 17:00 49-year-old female with no known medical history presents to the emergency room with a chief complaint of right lower extremity swelling and tenderness. Patient states that initially the swelling started sometime around November 2024 and apparently at that time she went to the ED but her x-ray was negative. Patient has been having progressively worsening right lower extremity swelling and apparently recently in the past week or so has been associated with some tenderness and difficulty ambulating. Patient states that the pain is so severe that she is unable to move her foot and has resorted to using her left foot for ambulation mostly. She says that her last A1c was in the sixes and denies having any traumatic events, cuts or bites in that area. Patient also states that she has been having some fever and chills for the past couple days but denies any concerning symptoms such as chest pain, shortness of breath, dizziness diarrhea, vomiting or any bleeding. On examination, patient is awake and answer questions appropriately, HEENT exam is largely unremarkable, cardiac and lung examination unremarkable, abdominal exam largely unremarkable. Patient's right lower extremity is swollen near the talofibular area with mild erythema noted. There is also some warmth noted and upon attempting to dorsiflex the right lower extremity she screams in pain. Patient has 2 out of 4 SIRS criteria reporting tachycardia and WBC. Differentials at this time include: Osteoarthritis, ankle joints septic arthritis, avascular necrosis, osteoarthritis Labs show leukocytosis with a WBC of 15.8, mild left shift 85% neutrophil, ESR is elevated at 53, CRP is also elevated at 25.1, rest of laboratory findings largely unremarkable. Ankle x-ray does not show any fractures but there is moderate narrowing of the tibiofibular joint, bony erosions involving the dome of the talus and distal articulating surface of the tibia including a large ankle effusion suspicious for osteomyelitis of the tibia talar joint, venous Doppler study is negative for DVT, chest x-ray and EKG are pending. #Osteomyelitis of the right foot, #Leukocytosis #Rule out septic joint arthritis right ankle As noted above based on clinical, laboratory and imaging findings Plan: Started patient on IV Zosyn 3.375 every 6 along with IV Zosyn, pharmacy to dose IV fluid bolus for sepsis protocol ordered due to patient needing 2 out of 4 SIRS criteria with source of infection Blood cultures ordered Chest x-ray and EKG pending Orthopedic surgeon on-call was called and presented the patient; recommendation is to do an MRI with and without contrast of the right foot along with joint aspiration. Depending on MRI findings, recommendation is for surgical management on 06/14. Called admitting hospitalist team who agreed to admit the patient for further workup and management I have greeted and performed a focused initial assessment of this patient. A comprehensive ED assessment and evaluation of the patient, analysis of all test results, and completion of the medical decision making process will be conducted by additional ED providers. Labs Lab(s) Interpretation(s): Labs show leukocytosis with a WBC of 15.8, mild left shift 85% neutrophil, ESR is elevated at 53, CRP is also elevated at 25.1, rest of laboratory findings l argely unremarkable. Imaging Imaging Interpretation(s): Ankle x-ray does not show any fractures but there is moderate narrowing of the tibiofibular joint, bony erosions involving the dome of the talus and distal articulating surface of the tibia including a large ankle effusion suspicious for osteomyelitis of the tibia talar joint, venous Doppler study is negative for DVT, chest x-ray and EKG are pending. Medication Administration(s) Medication Administration History Lactated Ringer's (Lactated Ringers) 1,000 mls @ 125 mls/hr IV .Q8H ONE Stop: 06/13/25 05:28 Last Admin: 06/12/25 22:03 Dose: 125 mls/hr Documented By: DEIRDRE Lactated Ringer's (Lactated Ringers) 1,710 mls @ 1,710 mls/hr 30 ml/kg infuse over 60 min (1710 ml) IV .Q1H ONE Stop: 06/12/25 22:50 Last Admin: 06/12/25 22:02 Dose: 1,710 mls/hr Documented By: DEIRDRE Vancomycin/Sodium Chloride (Vancomycin/Ns 1 Gm Ivpb) 200 mls @ 120 mls/hr IV Q100M ELIAS Stop: 06/13/25 01:19 Last Admin: 06/12/25 22:27 Dose: 120 mls/hr Documented By: DEIRDRE Pharmacy Consult (Vancomycin Pharmacy To Dose 1 Each Each) 1 each IV QDAY [facility] Stop: 07/13/25 08:59 Discontinued Medications Acetaminophen (Acetaminophen 500 Mg Tablet) 1,000 mg PO X1 ONE Stop: 06/12/25 17:51 Last Admin: 06/12/25 18:47 Dose: 1,000 mg Documented By: SEDA Piperacillin/Tazobactam/Dextrose (Zosyn) 3.375 gm in 50 mls @ 100 mls/hr IV X1 ONE; Protocol Stop: 06/12/25 21:58 Last Admin: 06/12/25 22:03 Dose: 100 mls/hr Documented By: DEIRDRE
[2025-06-12 21:31] LABS: C-Reactive Protein 25.1 mg/dL (0.0-0.9)
[2025-06-12 21:34] VITALS: BP 149/87; PULSE 100; RESP 18; TEMP 37.2; O2SAT 96
--- NOTE | 2025-06-12 21:53 | XR_ITS ---
EXAMINATION: AP chest single view TECHNIQUE: AP portable upright chest single view Date and time: June 12, 2025, 10:19 p.m. INDICATIONS: Infection right ankle 4 days FINDINGS: Normal heart size Lungs are clear. Osseous rectors are intact IMPRESSION: No active disease
--- NOTE | 2025-06-12 21:54 | EKG_ITS ---
[facility] Test Date: 2025-06-12 Pat Name: BRI UREÑA Department: Room: - Gender: Female [employer]: : 1975 Requested By: Liam Ortiz Order Number: [id number] Reading MD: Liam Ortiz Measurements Intervals [place] Rate: 90 P: 42 HI: 163 QRS: -4 QRSD: 93 T: 22 QT: 315 QTc: 386 Interpretive Statements SINUS RHYTHM Compared to ECG 07/28/2024 17:32:45 No significant changes /[id number]/[email or web address]/[id number]
[2025-06-12] MEDS: RINGERS LACTATED 1710 ML IV (22:02)
[2025-06-12] MEDS: RINGERS LACTATED 1000 ML 1,000 ML 125 ML IV (22:03)
[2025-06-12] MEDS: PIPER/TAZO 3.375 GM PREMIX 3.375 GM/50 ML BAG IV (22:03)
[2025-06-12 22:23] VITALS: BP 137/79; PULSE 96; RESP 18; TEMP 37.2; O2SAT 99
--- NOTE | 2025-06-12 22:25 | ESHP_ITS ---
<Statement entered by Oracio Wesley MD - 06/14/25 07:45> I have discussed and was present for the essential components of the history, physical examination, diagnosis, and treatment plan with the resident. I agree with the patient's care as documented by the resident and amended herein by me. Oracio Wesley MD FACP <Statement entered by Marco Motley MD - 06/13/25 04:48> 49-year-old female with significant past medical history of type 2 diabetes mellitus on metformin, hypertension, hyperlipidemia, osteoarthritis, GERD, history of chronic right ankle swelling since November presented to the hospital with worsening of right ankle swelling and pain. Also noted to have febrile episode. Patient reported that she is following Dr. Nunes and got MRI in January 2025 which did not show any osteomyelitis at that time. Also reported that she has history of gout, but no evidence. Vitals are stable at the time of admission except for mildly elevated blood pressure and heart rate. Labs are significant for WBC 15.8, WBC 13.4, ESR 53, CRP 25.1. Right foot x-ray showed erosions involving the dome of the talus and distal articulating surface of the tibia. Large ankle effusion as well as prominent bimalleolar soft tissue swelling. Suspicious of osteomyelitis of tibiotalar joint. Patient reported that her blood glucose is always controlled at A1c is around 6. Venous Doppler is negative for DVT. Patient is admitted into the hospital for the suspected osteomyelitis. Received IV fluids, Zosyn in the ED. Orthopedic surgeon, Dr. Miller is consulted and he recommended MRI of foot and if noted to have an abnormality, will take the patient to the OR for joint debridement. IR guided joint aspiration for synovial fluid analysis is ordered. Started on vancomycin and Zosyn, pain medication as needed. Blood cultures were sent. # Right ankle joint effusion, to rule out septic arthritis versus osteomyelitis # Diabetes mellitus, type II # Hypertension # Obesity # Gout # Leukocytosis I have personally seen and examined the patient, agree with residents assessment and plan Patient plan of care was discussed with the attending physician, Dr. Maryjane Motley, PGY2 Documentation for date of: 06/12/25 HPI History of Present Illness Chief complaint: Right ankle pain and swelling History of present illness: This patient is a 49-year-old female with a history of vlq-vrlrohb-jzadzleyu T2DM, hypertension, hyperlipidemia, arthritis, and GERD who presented to [facility] ED on 06/12 for right ankle pain and swelling. Patient was admitted for osteomyelitis and septic arthritis rule out. The patient stated that her right ankle swelling started sometime in November 2024, at the time imaging was negative for any acute processes. MRI of the right foot without contrast taken on 01/23/2025 only noted large ankle effusion. The patient stated that she sees Dr. Nunes, a electrostatic painter in [place] who at the time recommended ice cooling on her right ankle, which initially helped, but has since been progressively getting worse. Over the past few days, the patient noted that the swelling has continued to increase, but the pain has become unbearable to the point where she feels that she cannot bear any weight on it. Throughout this time, the patient denies having any traumatic injury to her right lower extremity. The patient does endorse fevers and chills over the past couple of days, but denies any shortness of breath, nausea, vomiting, or diarrhea. The patient does endorse a history of being diagnosed with gout, but does not take any medications for this and does not remember any specifics of how she was diagnosed with this condition. The patient does endorse eating a large Thanksgiving meal at work. ED Course: Initial vitals significant for BP of 169/101 and heart rate 114 Initial labs significant for WBC 15.8 hemoglobin 11.5, neutrophil count 13.4, ESR 53, and CRP 25.1 Chest x-ray shows pulmonary erosions involving the dome of the talus and distal articulating surface of the tibia as well as a large ankle effusion that is suspicious for osteomyelitis Right lower extremity ultrasound venous Doppler negative for DVT chest x-ray negative for acute processes ED consulted orthopedic surgery, Dr. Miller, who recommended MRI w/wo contrast to rule out septic arthritis, and if positive will do debridement Patient received 1 g of acetaminophen, 30 mg/kg of LR (1.7 L) and was started on vancomycin and Zosyn Past Surgical History: Appendectomy, tonsil removal, cholecystectomy, knee surgery? 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 Skin: Warm, dry, intact. Head: Normocephalic, atraumatic. Eye: Normal conjunctiva, PERRL. Cardiovascular: Tachycardic rate and rhythm, no murmur, +S1/S2. Respiratory: Lungs are clear to auscultation, respirations unlabored, no crackles, no wheezing. Gastrointestinal: Soft, nontender, non-distended. No guarding or rebound tenderness. Extremities: Swelling and erythema on right ankle both lateral and medial portions that is tender to light palpation. Right big toe MTP joint erythematous and tender to palpation. Left small toe MTP joint erythematous and tender to palpation. Neuro: No focal deficits observed. Conversant, moving all extremities. No overt cerebellar signs/incoordination. Psychiatric: Cooperative, appropriate affect. Results: Labs 06/12/25 18:35 06/12/25 18:35 Labs: Short CBC 06/12/25 Range/Units 18:35 WBC 15.8 H (3.6-11.0) Thou/mm3 Hgb 11.5 L (12.0-16.0) g/dL Hct 35.3 L (36.0-46.0) % Plt Count 346 (140-440) Thou/mm3 BMP 06/12/25 18:35 Sodium 139 Potassium 3.9 Chloride 103 Carbon Dioxide 27.3 BUN 11 Creatinine 1.0 Glucose 185 H Calcium 10.0 Liver Function 06/12/25 Range/Units 18:35 Total Bilirubin 0.5 (0.3-1.2) mg/dL AST < 10 (0-34) U/L ALT 11 (10-49) U/L Alkaline Phosphatase 86 (46-116) U/L Albumin 4.8 (3.5-5.0) gm/dL Urine 12/01/25 Range/Units 19:07 Urine Color Yellow (Lt Yel-Yel) Urine Clarity Clear (Clear/Hazy) Urine pH 6.0 (5.0-7.0) Ur Specific [place] 1.029 (1.001-1.035) Urine Protein 1+ A (Neg - Trace) Urine Glucose (UA) Negative (Negative) Quality Measures Quality Measures VTE prophylaxis Medications Home Medications and Allergies Home Medications ?Medication ?Instructions ?Recorded ?Confirmed ?Type Pantoprazole Sodium 40 mg PO DAILY ##0 09/08/10 06/13/25 History metformin 500 mg tablet 500 mg PO BID ##0 09/08/10 1 08/14/24 History (Glucophage) ibuprofen 800 mg tablet 800 mg PO TID 03/03/1806/13 History hydrocodone 5 mg-acetaminophen 325 1 tab PO Q12H PRN p ain 06/13/25 06/13/25 History mg tablet phenazopyridine 100 mg tablet 100 mg PO Q8H 06/13/25 1 08/14/24 History Allergies Allergy/AdvReac Type Severity Reaction Status Date / Time latex Allergy Severe CRACKS Verified 06/12/25 17:02 SKIN OPEN Visit Medications Lactated Ringer's (Lactated Ringers) 1,000 mls @ 125 mls/hr IV .Q8H ONE Stop: 06/13/25 05:28 Last Admin: 06/12/25 22:03 Dose: 125 mls/hr Lactated Ringer's (Lactated Ringers) 1,710 mls @ 1,710 mls/hr 30 ml/kg infuse over 60 min (1710 ml) IV .Q1H ONE Stop: 06/12/25 22:50 Last Admin: 06/12/25 22:02 Dose: 1,710 mls/hr Vancomycin/Sodium Chloride (Vancomycin/Ns 1 Gm Ivpb) 200 mls @ 120 mls/hr IV Q100M [facility] Stop: 06/13/25 01:19 Pharmacy Consult (Vancomycin Pharmacy To Dose 1 Each Each) 1 each IV QDAY [facility] Stop: 07/13/25 08:59 Discontinued Medications Acetaminophen (Acetaminophen 500 Mg Tablet) 1,000 mg PO X1 ONE Stop: 06/12/25 17:51 Last Admin: 06/12/25 18:47 Dose: 1,000 mg Piperacillin/Tazobactam/Dextrose (Zosyn) 3.375 gm in 50 mls @ 100 mls/hr IV X1 ONE; Protocol Stop: 06/12/25 21:58 Last Admin: 06/12/25 22:03 Dose: 100 mls/hr Assessment & Plan Plan This patient is a 49-year-old female with a history of jlr-orbqyhu-aixkmaowl T2DM, hypertension, hyperlipidemia, arthritis, and GERD who presented to [facility] ED on 06/12 for right ankle pain and swelling. Patient was admitted for osteomyelitis and septic arthritis rule out. #Right ankle swelling #Septic arthritis rule out #History of gout? DDx: Osteomyelitis, septic arthritis, gout flare, pseudogout flare Patient noted to have right ankle swelling that was present since November 2024 and has since increased in size and worsened and pain over time. Cool compress with ice initially held, but no longer provides any relief. Initial imaging negative for any acute processes, however now patient endorses fever at home and pain has progressed to where she is unable to bear weight on her right leg. Patient does endorse a history of gout, but is not sure what led to this diagnosis and she does not take any medication for management of this condition. Diagnostics: Right ankle MRI taken on 01/23/2025 shows large ankle effusion without acute processes noted Right ankle x-ray taken 06/12 notes bony erosions involving dome of the talus and distal articular surface of the tibia with large ankle effusion, suspicious for osteomyelitis Right lower extremity venous duplex Doppler negative for DVT Patient endorses subjective fevers at home, no fevers recorded in ED except for low-grade temp of 100.1 WBC on admission 15.8 with ESR of 53 and CRP of 25.1 Treatment: Orthopedic surgery consulted, appreciate recommendations MRI with and without contrast ordered, pending IR joint aspiration of right ankle with cell count/diff, culture, cytology, and crystal analysis ordered, pending Blood culture ordered, pending Uric acid ordered, pending Vancomycin daily (06/12-) Piperacillin/tazobactam 4.5 gm IV every 6 hours (06/12-) [place] 5/325 1 tablet every 6 hours as needed for pain #Non-insulin dependent type 2 diabetes mellitus Patient noted to have a history of T2DM for which she takes metformin at home. Patient notes that she keeps her hemoglobin A1c at around 6%, however no recent hemoglobin A1c on file, previous 1 was from 2017. Diagnostics: Hemoglobin A1c ordered, pending Treatment: Sliding scale insulin Bedside glucose checks ACHS #Hypertension Patient endorses a history of hypertension and takes lisinopril at home. Treatment: Continue to monitor, consider resuming home antihypertensive if patient remains hypertensive, hypertension possibly secondary to pain in right ankle #Hyperlipidemia Patient endorses a history of hyperlipidemia and takes simvastatin at home. Diagnostics: Lipid panel ordered, pending Treatment: Continue to monitor, consider starting atorvastatin #GERD Patient has a history of GERD and takes Protonix 40 mg daily for management of this. Treatment: Resumed home Protonix 40 mg daily #Leukocytosis Patient noted to have elevated WBC of 15.8 with left shift on presentation in the ED. Reactive secondary to patient's pain versus active infection with suspected osteomyelitis or septic arthritis. Treatment: Will continue to monitor with daily labs, continue treatment with antibiotics #Anemia, normocytic Patient noted to have hemoglobin of 11.5 with MCV in normal range on admission. Possibly anemia of chronic disease given months long swelling and pain of her right ankle. Treatment: Continue to monitor, transfuse if hemoglobin less than 7 Patient to follow-up outpatient DVT Prophylaxis: Lovenox GI Prophylaxis: Protonix Bowel: Senokot PRN Diet: Carbohydrate consistent [place]: N/A Lines: PIV Antibiotics: Zosyn & Vancomycin Code Status: FULL Reason for Hospitalization: Osteomyelitis & septic arthritis Other Barriers to Discharge: MRI w/wo contrast of right foot Patient plan of care was discussed with the senior resident Dr. Motley (PGY-2) and attending physician Dr. Maryjane Collins, PGY1
[2025-06-12] MEDS: VANCOMYCIN/NS 1 GM IVPB 200 ML IV (22:27)
[2025-06-12 22:41] LABS: B-Type Natriuretic Peptide < 20 pg/mL (0-100)
[2025-06-12 22:49] VITALS: PULSE 88; O2SAT 100
[2025-06-12 22:50] LABS: LDH (Lactate Dehydrogenase) 178 U/L (120-246); Magnesium 1.8 mg/dL (1.6-2.6); Phosphorous 2.7 mg/dL (2.4-5.1); Procalcitonin 0.18 ng/ml (0.0-0.49)
[2025-06-12 22:51] VITALS: BP 137/79; PULSE 88; RESP 19; TEMP 37; O2SAT 100
[2025-06-12 22:58] LABS: INR 1.0 (0.9-1.3); Partial Thromboplastin Time 28.1 Seconds (22.0-36.0); Prothrombin Time 10.9 Seconds (9.0-12.2)
[2025-06-12 23:46] VITALS: BMI 44.2
[2025-06-12] MEDS: ACETAMINOPHEN 325 MG TABLET 650 MG PO (23:52)
[2025-06-13] VITALS (12 sets, daily range): BP systolic 130–177; BP diastolic 57–99; PULSE 76–95; RESP 16–100; TEMP 36.5–37.6; O2SAT 93–100
--- NOTE | 2025-06-13 | XR_ITS ---
Examination: Fluoroscopically-guided aspiration tibiotalar joint right ankle Fluoroscopy Exam date and time: June 13, 2025, 1206 hours INDICATIONS: Redness swelling and pain involving the ankle with cortical bone destruction contiguous surfaces distal tibia and talus Informed consent provided. Technique: A timeout was completed verifying correct patient, procedure, site, positioning. The patient was placed in supine position appropriate for the steroid injection The patient's site was prepped and draped in sterile fashion 5 cc 1% lidocaine administered locally for anesthesia. Sterile drape applied, maximum barrier sterile technique. Utilizing fluoroscopic guidance, 18-gauge needle placed in the tibiotalar joint Turbid sanguinous fluid removed and placed in culture medium for culture and sensitivity The patient was in satisfactory and stable condition on completion of the procedure Attending radiologist was present for the entire procedure Estimated blood loss 2 cc Impression: Successful fluoroscopically guided aspiration right tibiotalar joint Fluoroscopy 0.5-minute radiation dose 0.89 mGy 1 spot fluoroscopic AP right ankle film For culture and sensitivity report to follow
--- NOTE | 2025-06-13 00:46 | PD.EDADDENDU ---
MD Attestation Attestation I, Dr Monteiro, was involved in the history physical and medical decision making and present for the pertinent parts of the patient care for this patient. Patient is admitted. She has osteomyelitis. Otherwise vital signs are stable here in the emergency department. On repeat her heart rate is 88 and her blood pressure has improved to 137/79. White count is 15,000 she does meet sepsis criteria. Pt presents with toe pain. Chest x-ray to evaluate for evidence of pneumonia. Right ankle x-rays likely source for infection.: Moderate narrowing tibiotalar joint Bony erosions involving the dome of the talus and distal articulating surface of the tibia Large ankle effusion as well as prominent bimalleolar soft tissue swelling IMPRESSION: Suspicious for osteomyelitis tibiotalar joint, recommend MRI ankle without contrast follow-up EKG to evaluate for evidence of arrhythmia/ACS. Sinus rhythm. Labwork (CBC, CMP) to evaluate for evidence of severe anemia, electrolyte abnl including hypokalemia, hyperkalemia, hypernatremia, hyponatremia, hyperglycemia, hypoglycemia, thrombocytopenia, etc CBC is consistent with the elevated white count of 15,000. Hemoglobin is slight anemia at 11.5/35. PT/PTT/INR to evaluate for evidence of coagulopathy. PT INR normal. LFTs to evaluate for evidence of acute hepatitis. LFTs are normal. UA to evaluate for evidence of UTI. Urinalysis shows no evidence of infection. Lactic acid/PCT/Blood cx. Lactic acid is normal at 1.2. ESR and CRP are elevated. (IV abx) are given. (PO/IV) hydration IV 30 mL/kg bolus is given. [(30ml/Kg IVF Bolus (Based on an IDEAL BODY WEIGHT). Pt is obese with a BMI>30]. [30ml/Kg IVF Bolus] [Will give [250/500/750/1000 ml] IVF Bolus instead of a 30ml/Kg IVF Bolus as patient would not tolerate the additional IVF volume due to [Concern for Fluid Overload/CHF/ESRD]. COVID-19/Influenza swab to evaluate for evidence of respective infections Re-eval. Post sepsis reevaluation patient vitals remained stable in the emergency department. Lungs are clear. No accessory muscle use. Heart rate is 88. Blood pressure 137/79. (Independent Historian: [Pt's ( ), EMS])
[2025-06-13] MEDS: NAPROXEN 250 MG TABLET 500 MG PO (02:14)
[2025-06-13] MEDS: HYDROcodone/APAP 5/325 TABLET 1 TAB PO ×3 (04:39→17:43)
[2025-06-13] MEDS: PIPER/TAZO INJ 3.375 GM in SODIUM CHLORIDE 0.9% (POP) 100 ML IV ×3 (05:12→22:39)
[2025-06-13 06:22] LABS: Basophils # (Auto) 0.0 Thou/mm3 (0.0-0.2); Basophils % (Auto) 0 % (0-2.5); Eosinophils # (Auto) 0.0 Thou/mm3 (0.0-0.5); Eosinophils % (Auto) 0 % (0-10); Hematocrit 29.2 % (36.0-46.0); Hemoglobin 9.6 g/dL (12.0-16.0); Immature Granulocytes Auto 0.06 Thou/mm3 (0.00-0.00); Lymphocytes # (Auto) 1.5 Thou/mm3 (1.0-4.8); Lymphocytes % (Auto) 10 % (10-50); Mean Corpuscular HGB Conc 32.9 g/dl (31.0-37.0); Mean Corpuscular Hemoglobin 28.2 pg (25.0-35.0); Mean Corpuscular Volume 86 fL (80-100); Monocytes # (Auto) 1.2 Thou/mm3 (0.0-0.8); Monocytes % (Auto) 8 % (0-12); Neutrophils # (Auto) 11.5 Thou/mm3 (1.8-7.7); Neutrophils % (Auto) 81 % (37-80); Nucleated Red Blood Cell # 0.00 Thou/mm3 (0.00-0.00); Nucleated Red Blood Cell % 0 /100 WBC (0); Platelet Count 256 Thou/mm3 (140-440); RDW Standard Deviation 43.6 fL (36.4-46.3); Red Blood Count 3.41 Miln/mm3 (4.00-5.20); White Blood Count 14.2 Thou/mm3 (3.6-11.0)
[2025-06-13 06:57] LABS: Glucose Estimated Average 146 mg/dL (80-131); Hemoglobin A1C 6.7 % Hgb (4.8-6.0)
[2025-06-13] MEDS: ENOXAPARIN SOD INJ 40 MG/0.4 ML SYRINGE SC (08:04)
[2025-06-13 08:12] LABS: Alanine Aminotransferase 9 U/L (10-49); Albumin, Serum 3.9 gm/dL (3.5-5.0); Alkaline Phosphatase 71 U/L (46-116); Anion Gap 10 (7-16); Aspartate Amino Transferase < 10 U/L (0-34); BUN/Creatinine Ratio 11 Ratio (12-20); Bilirubin,Total 0.5 mg/dL (0.3-1.2); Blood Urea Nitrogen 9 mg/dL (9-23); Calcium 9.5 mg/dL (8.3-10.6); Calcium (Corrected) 9.6 mg/dL (8.5-10.1); Carbon Dioxide 26.1 mMol/L (20.0-31.0); Chloride 104 mMol/L (98-107); Creatinine (Component) 0.8 mg/dL (0.6-1.3); Estimated Creatinine Clearance 112.0 mL/min (>60); Glucose 155 mg/dL (74-106); Magnesium 1.6 mg/dL (1.6-2.6); Osmolality,Calculated 281 (275-295); Phosphorous 2.8 mg/dL (2.4-5.1); Potassium 3.8 mMol/L (3.4-5.1); Sodium 140 mMol/L (136-145); Uric Acid 6.0 mg/dL (3.1-7.8); eGFR > 60 See Note
[2025-06-13 08:57] LABS: Cardiac Risk Estimate 2.8 RATIO (3.7-5.6); Cholesterol 162 mg/dL (132-200); HDL Cholesterol 58 mg/dL (40-60); LDL Cholesterol,Calculated 82 mg/dL (0-130); Triglycerides 109 mg/dL (30-150)
[2025-06-13] MEDS: VANCOMYCIN/D5W 1,250 MG IVPB 250 ML 120 MG IV ×2 (10:56→21:35)
--- NOTE | 2025-06-13 11:56 | PC.NURSE ---
notified Dr. Aldridge of positive blood cultures Gram positive cocci resembling staph
[2025-06-13 13:04] LABS: Albumin/Globulin Ratio 1.4 (1.2-2.2); Globulin 2.7 gm/dL (2.3-3.5); Total Protein 6.6 gm/dL (5.7-8.2)
--- NOTE | 2025-06-13 13:04 | ESCONSULT_ITS ---
HPI Consult details Reason for consultation narrative: Right ankle pain History of present illness: Patient is a 49-year-old female with a longstanding history of diabetes for over 26 years who presents with right ankle swelling. She first noticed the swelling about 1 year ago. 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 After a long period of total contact casting the pain went away for approximately [address] Nunes with a power tool repair technician in [place]. She reports the pain is increased recently and has been very difficult for her to work because of the pain. She reports the pain is entirely in her ankle. She has a history of asthma and has taken steroids in the past. Review of Systems Review of Systems Narrative Review of Systems: Notable for diabetes, GERD, and prior Charcot Meds Home Medications and Allergies Home Medications ?Medication ?Instructions ?Recorded ?Confirmed ?Type Pantoprazole Sodium 40 mg PO DAILY ##0 09/08/10 06/13/25 History metformin 500 mg tablet 500 mg PO BID ##0 09/08/10 1 08/14/24 History (Glucophage) ibuprofen 800 mg tablet 800 mg PO TID 03/03/1806/13 History hydrocodone 5 mg-acetaminophen 325 1 tab PO Q12H PRN p ain 06/13/25 06/13/25 History mg tablet phenazopyridine 100 mg tablet 100 mg PO Q8H 06/13/25 1 08/14/24 History Allergies Allergy/AdvReac Type Severity Reaction Status Date / Time latex Allergy Severe CRACKS Verified 06/12/25 17:02 SKIN OPEN Exam Vital Signs Temp Pulse Resp BP Pulse Ox O2 Del Method 99.7 F 93 19 169/91 H 96 Room Air 06/13/25 12:00 06/13/25 12:00 06/13/25 12:00 06/13/25 12:00 06/13/25 12:00 06/13/25 12:00 Additional findings Additional findings: Patient is in no acute distress and is cooperative with the examination today. Breathing is nonlabored. Patient has a normal mood and affect. The patient has a gait that is nonantalgic Bilateral extremities were evaluated and demonstrates sensation intact to light touch. Palpable pedal pulses are present. No significant edema is present. Bilateral hips were examined. The patient has no pain with log roll of the hips. Internal rotation to 30 degrees and external rotation to 30 degrees is painless. Negative FADIR. Left knee was examined today. The left knee is in reasonable alignment. Range of motion from 0-120 degrees. Knee is stable to varus and valgus as well as AP translation with <5mm. Patient has a negative [place]. There is no pain with patellofemoral compression and no crepitus noted. The knee is nontender to palpation. The right knee was also examined. The right knee is in neutral alignment. Range of motion from 0-120 degrees. Knee is stable to varus and valgus as well as AP translation with <5mm. Patient has a negative [place]. There is no pain with patellofemoral compression and no crepitus noted. The knee is nontender to palpation diffusely. Right ankle demonstrates an effusion. She is tender to palpation over her ankle and has pain with both dorsiflexion and plantarflexion. Range of motion is limited due to pain. Compartments of the leg are soft. She has no pain with passive extension or flexion of her big toes Results - Ortho Labs 06/13/25 05:15 06/13/25 05:15 Labs: Short CBC 06/12/25 06/13/25 Range/Units 18:35 05:15 WBC 15.8 H 14.2 H (3.6-11.0) Thou/mm3 Hgb 11.5 L 9.6 L (12.0-16.0) g/dL Hct 35.3 L 29.2 L (36.0-46.0) % Plt Count 346 256 D (140-440) Thou/mm3 BMP 06/12/25 06/13/25 18:35 05:15 Sodium 139 140 Potassium 3.9 3.8 Chloride 103 104 Carbon Dioxide 27.3 26.1 BUN 11 9 Creatinine 1.0 0.8 Glucose 185 H 155 H Calcium 10.0 9.5 Liver Function 06/12/25 06/13/25 Range/Units 18:35 05:15 Total Bilirubin 0.5 0.5 (0.3-1.2) mg/dL AST < 10 < 10 (0-34) U/L ALT 11 9 L (10-49) U/L Alkaline Phosphatase 86 71 (46-116) U/L Albumin 4.8 3.9 D (3.5-5.0) gm/dL Urine 06/12/25 Range/Units 19:07 Urine Color Yellow (Lt Yel-Yel) Urine Clarity Clear (Clear/Hazy) Urine pH 6.0 (5.0-7.0) Ur Specific [place] 1.029 (1.001-1.035) Urine Protein 1+ A (Neg - Trace) Urine Glucose (UA) Negative (Negative) Imaging Xray: Additional comments: X-rays demonstrate erosions of the dome of the talus. Differential diagnosis for this includes AVN, osteomyelitis, and Charcot ankle. An MRI demonstrates edema of the talus and distal tibia as well. This MRI from 5 months ago Assessment & Plan Problem List (1) Right ankle swelling: Status: Acute Assessment and plan: Patient is a 49-year-old female with right ankle swelling and signs of erosion of the talus and distal tibia. The differential diagnosis for her right ankle pain is 1 of 3 things. I think the most likely cause is a Charcot ankle as she has had a history of total contact casting with relief pain. She also reports that elevation improves the swelling and redness which is consistent with this. In addition, it is possible that this is AVN of the talus as well given her IV steroid history. Lastly, we do want to rule out a septic joint and osteomyelitis as treatment for this would be different than the other two. If there is a septic ankle, I would do a washout. The patient wants limb preservation at this time. - Recommend aspiration of the right ankle to be sent for cell count, culture, crystals - Treatment will likely depend on the aspiration results - Consider MRI with and without contrast - I would hold antibiotics until definitive diagnosis is done
--- NOTE | 2025-06-13 13:17 | ESPR_ITS ---
<Statement entered by Alexis Black MD - 06/13/25 16:23> Overnight admission for possible osteomyelitis. Seen and examined at bedside and patient states that she has been having on and off fever, chills since her swelling started in November. Underwent successful aspiration of the right ankle joint but had issues from IR to lab regarding fluid analysis. Thus, repeat joint aspiration ordered per ortho recommendations. Also pending MRI of the foot for further evaluation. Will continue with vancomycin and zosyn. ----- Note reviewed and agree with care plan as documented. Please refer to the note below for further details. Plan discussed with attending physician Dr. Neal Black MD PGY-2 Internal Medicine Documentation for date of: 06/13/25 Subjective Subjective Interval history: No acute events overnight. Patient's blood pressure was elevated this morning to 170s systolic and she was started on lisinopril 10 mg with some improvement. Patient's pain has been well controlled with norco prn. Patient is currently getting Vanc & Zosyn and joint aspiration is being done today with culture, cell count and crystal analysis being done. Patient has been afebrile since being admitted with elevated wbc count, but endorses having fevers at home recently. Patient's ankle mobility is limited even with pain medication. Orthopedic Surgery Dr. Miller is consulted and will follow up recommendations. Exam Vital Signs Temp Pulse Resp BP Pulse Ox O2 Del Method 99.7 F 93 19 169/91 H 96 Room Air 06/13/25 12:00 06/13/25 12:00 06/13/25 12:00 06/13/25 12:00 06/13/25 12:00 06/13/25 12:00 Narrative Exam General: No acute distress; A&Ox3 Skin: R ankle swelling/erythema. HENT: NCAT, EOMI/PERRL, not icteric. External ears normal. No rhinorrhea. Moist mucous membranes Cardiovascular: Regular rate and rhythm, no murmur, +S1/S2. Respiratory: Lungs CTAB GI: Soft, nontender, non-distended. No guarding or rebound tenderness. : No suprapubic tenderness. No flank tenderness bilaterally. Extremities: R foot 2+ edema, Tender R foot/ankle with decreasing tenderness up to the R calf; no cyanosis, no clubbing. Extremity pulses present Neuro: Grossly nonfocal. Moving all 4 extremities. CN not formally tested but appear grossly intact. Psychiatric: Cooperative, appropriate affect. Objective Labs 06/14/25 05:18 06/14/25 05:18 Labs: Laboratory Results - last 24 hr 06/12/25 06/12/25 06/12/25 18:35 19:07 21:45 WBC 15.8 H RBC 4.08 Hgb 11.5 L Hct 35.3 L MCV 87 MCH 28.2 MCHC 32.6 RDW Std Deviation 43.6 Plt Count 346 Neut % (Auto) 85 H Lymph % (Auto) 7 L [place] % (Auto) 8 Eos % (Auto) 0 Baso % (Auto) 0 Neut # (Auto) 13.4 H Lymph # (Auto) 1.1 [place] # (Auto) 1.2 H Eos # (Auto) 0.0 Baso # (Auto) 0.0 Immature Gran # (Auto) 0.06 H Absolute Nucleated RBC 0.00 Immature Gran % 0 Nucleated RBC % 0 ESR 53 H PT 10.9 INR 1.0 APTT 28.1 Sodium 139 Potassium 3.9 Chloride 103 Carbon Dioxide 27.3 Anion Gap 9 BUN 11 Creatinine 1.0 Estim Creat Clear Calc 88.4 eGFR > 60 BUN/Creatinine Ratio 11 L Glucose [address] Glu mg/dL Hemoglobin A1c Calculated Osmolality 281 Lactic Acid 1.2 Uric Acid Calcium 10.0 Corrected Calcium 10.0 Phosphorus 2.7 Magnesium 1.8 Total Bilirubin 0.5 AST < 10 ALT 11 Alkaline Phosphatase 86 Lactate Dehydrogenase 178 C-Reactive Prot, Quant 25.1 H B-Natriuretic Peptide < 20 Total Protein 7.7 Albumin 4.8 Globulin 2.9 Albumin/Globulin Ratio 1.7 Triglycerides Cholesterol LDL Cholesterol, Calc HDL Cholesterol Cholesterol/HDL Ratio Procalcitonin 0.15 0.18 Ur Collection Type Clean Catch Urine Color Yellow Urine Clarity Clear Urine pH 6.0 Ur Specific [place] 1.029 Urine Protein 1+ A Urine Glucose (UA) Negative Urine Ketones Trace Urine Blood Negative Urine Nitrite Negative Urine Bilirubin Negative Urine Urobilinogen (Auto) Negative Ur Leukocyte Esterase Positive Urine RBC 3 Urine WBC 2 Ur Squamous Epith Cells 1 Amorphous Crystals Present A Urine Bacteria None Hyaline Casts 2 H 06/13/25 05:15 WBC 14.2 H RBC 3.41 L Hgb 9.6 L Hct 29.2 L MCV 86 MCH 28.2 MCHC 32.9 RDW Std Deviation 43.6 Plt Count 256 D Neut % (Auto) 81 H Lymph % (Auto) 10 [place] % (Auto) 8 Eos % (Auto) 0 Baso % (Auto) 0 Neut # (Auto) 11.5 H Lymph # (Auto) 1.5 [place] # (Auto) 1.2 H Eos # (Auto) 0.0 Baso # (Auto) 0.0 Immature Gran # (Auto) 0.06 H Absolute Nucleated RBC 0.00 Immature Gran % 0 Nucleated RBC % 0 ESR PT INR APTT Sodium 140 Potassium 3.8 Chloride 104 Carbon Dioxide 26.1 Anion Gap 10 BUN 9 Creatinine 0.8 Estim Creat Clear Calc 112.0 eGFR > 60 BUN/Creatinine Ratio 11 L Glucose [address] Glu mg/dL 146 H Hemoglobin A1c 6.7 H Calculated Osmolality 281 Lactic Acid Uric Acid 6.0 Calcium 9.5 Corrected Calcium 9.6 Phosphorus 2.8 Magnesium 1.6 Total Bilirubin 0.5 AST < 10 ALT 9 L Alkaline Phosphatase 71 Lactate Dehydrogenase C-Reactive Prot, Quant B-Natriuretic Peptide Total Protein 6.6 Albumin 3.9 D Globulin 2.7 Albumin/Globulin Ratio 1.4 Triglycerides 109 Cholesterol 162 LDL Cholesterol, Calc 82 HDL Cholesterol 58 Cholesterol/HDL Ratio 2.8 L Procalcitonin Ur Collection Type Urine Color Urine Clarity Urine pH Ur Specific [place] Urine Protein Urine Glucose (UA) Urine Ketones Urine Blood Urine Nitrite Urine Bilirubin Urine Urobilinogen (Auto) Ur Leukocyte Esterase Urine RBC Urine WBC Ur Squamous Epith Cells Amorphous Crystals Urine Bacteria Hyaline Casts Quality Measures Quality Measures VTE prophylaxis Assessment & Plan Assessment Current Active Medications: Generic Name Dose Route Start Last Admin Trade Name Jovanny PRN Reason Stop Dose Admin Acetaminophen 650 mg 06/12/25 22:32 06/12/25 23:52 Acetaminophen 325 Mg Tablet PO 07/12/25 22:31 650 mg Q6H PRN Administration Fever >101.5 or pain 1-3 Hydrocodone Bitart/Acetaminophen 1 tab 06/13/25 04:29 06/13/25 10:56 Hydrocodone/Apap 5/325 Tablet PO 06/18/25 04:28 1 tab Q6HR PRN Administration PAIN SCALE 4-10(Mod-Sev Dextrose 25 ml 06/13/25 01:41 Dextrose 50%-Water Inj 50 Ml Syringe IV 07/13/25 01:40 Q15MIN PRN BG 50-70 responsive npo pt Dextrose 50 ml 06/13/25 01:41 Dextrose 50%-Water Inj 50 Ml Syringe IV 07/13/25 01:40 Q15MIN PRN BG <50 OR BG <70 & pt unresponsive Enoxaparin Sodium 40 mg 06/13/25 09:00 06/13/25 08:04 Enoxaparin Sod Inj 40 Mg/0.4 Ml Syringe SC 06/27/25 08:59 40 mg QDAY ELIAS Administration Glucagon 1 mg 06/13/25 01:41 Glucagon Inj 1 Mg Vial IM Q15MIN PRN BG <70, and no IV access Piperacillin Sod/Tazobactam 100 mls @ 25 mls/hr 06/13/25 06:00 06/13/25 05:12 Sod 3.375 gm/ Sodium Chloride IV 06/20/25 05:59 25 mls/hr Q8HR ELIAS Administration Protocol Vancomycin HCl/Dextrose 250 mls @ 120 mls/hr 06/13/25 10:00 06/13/25 10:56 Vancomycin/D5w 1,250 Mg Ivpb IV 06/20/25 09:59 120 mls/hr BID@1000,2200 ELIAS Administration Insulin Human Lispro 0 unit 06/13/25 07:30 06/13/25 11:59 Insulin Lispro (Admelog) 1 Unit/0.01 Ml Unit SC 07/13/25 07:29 Not Given AC [facility] Protocol Lisinopril 10 mg 06/13/25 09:00 06/13/25 08:03 Lisinopril 2.5 Mg Tablet PO 07/13/25 08:59 10 mg QDAY ELIAS Administration Pharmacy Consult 1 each 06/13/25 09:00 Vancomycin Pharmacy To Dose 1 Each Each IV 07/13/25 08:59 QDAY PRN CONSULT Sennosides 1 tab 06/13/25 00:49 Senna/Docusate Sod 1 Tab Tablet PO 07/13/25 00:48 QDAY PRN CONSTIPATION Protocol Plan This patient is a 49-year-old female with a history of [id number] T2DM, hypertension, hyperlipidemia, arthritis, and GERD who presented to [facility] ED on 06/12 for right ankle pain and swelling. Patient was admitted for osteomyelitis and septic arthritis rule out. #Right ankle swelling #Septic arthritis rule out #History of gout? DDx: Osteomyelitis, septic arthritis, gout flare, pseudogout flare, charcot ankle, AVN Patient noted to have right ankle swelling that was present since November 2024 and has since increased in size and worsened and pain over time. Cool compress with ice initially held, but no longer provides any relief. Initial imaging negative for any acute processes, however now patient endorses fever at home and pain has progressed to where she is unable to bear weight on her right leg. Patient does endorse a history of gout, but is not sure what led to this diagnosis and she does not take any medication for management of this condition. Patient has history of contact cast, making charcot ankle a differential. Patient has used steroids in the past for asthma, possible AVN. Diagnostics: Right ankle MRI taken on 01/23/2025 shows large ankle effusion without acute processes noted Right ankle x-ray taken 06/12 notes bony erosions involving dome of the talus and distal articular surface of the tibia with large ankle effusion, suspicious for osteomyelitis Right lower extremity venous duplex Doppler negative for DVT Patient endorses subjective fevers at home, no fevers recorded in ED except for low-grade temp of 100.1 WBC on admission 15.8 with ESR of 53 and CRP of 25.1; Uric acid wnl Blood culture prelim reported to be GPC with staph appearance. Treatment: Orthopedic surgery consulted, appreciate recommendations MRI with and without contrast ordered, pending IR joint aspiration of right ankle with cell count/diff, culture, cytology, and crystal analysis ordered, pending (repeated due to lab issue?) Vancomycin daily (06/12-) Piperacillin/tazobactam 4.5 gm IV every 6 hours (06/12-) [place] 5/325 1 tablet every 6 hours as needed for pain #Non-insulin dependent type 2 diabetes mellitus Patient noted to have a history of T2DM for which she takes metformin at home. Patient notes that she keeps her hemoglobin A1c at around 6%, however no recent hemoglobin A1c on file, previous 1 was from 2017. Diagnostics: Hemoglobin A1c 6.7 (06/13/2025) Treatment: Sliding scale insulin Bedside glucose checks ACHS #Hypertension Patient endorses a history of hypertension and takes lisinopril at home. Possibly due to pain Treatment: -resumed home lisinopril 10 mg qday #Hyperlipidemia Patient endorses a history of hyperlipidemia and takes simvastatin at home. Diagnostics: Lipid panel wnl Treatment: -ordered simvastatin 10 mg q hs (non-formulary) #GERD Patient has a history of GERD and takes Protonix 40 mg daily for management of this. Treatment: Resumed home Protonix 40 mg daily #Leukocytosis Patient noted to have elevated WBC of 15.8 with left shift on presentation in the ED. Reactive secondary to patient's pain versus active infection with suspected osteomyelitis or septic arthritis. Treatment: Will continue to monitor with daily labs, continue treatment with antibiotics #Anemia, normocytic Patient noted to have hemoglobin of 11.5 with MCV in normal range on admission. Possibly anemia of chronic disease given months long swelling and pain of her right ankle. Treatment: Continue to monitor, transfuse if hemoglobin less than 7 Patient to follow-up outpatient Reason for Hospitalization: Osteomyelitis & septic arthritis DVT Prophylaxis: Lovenox GI Prophylaxis: Protonix Bowel: Senokot PRN Diet: Carbohydrate consistent [place]: N/A Lines: PIV Antibiotics: Zosyn & Vancomycin Code Status: FULL Patient plan of care was discussed with the attending physician, Dr. De Jesus & senior resident Dr. Freddie Aldridge MD PGY-1 Attending Provider Attestation/Addendum I, Paty De Jesus, , attest that I was physically present for the br[place]ila portions of the service and evaluated the patient with the resident and I reviewed and discussed the case with the resident and agree with the resident's findings and plans of care as documented above Patient seen and evaluated this AM. She has erythema and edema of medial and lateral sides of right ankle. Patient has tenderness with plantarflexion and dorsiflexion of right foot. She reports that she has been having progressively worsening pain in the right ankle for nearly a week. Patient has been using crutches for mobility. She denies any trauma or breaks in skin. She admits to chills, but denies any fevers. Pending MRI at this time to rule out osteomyelitis. IR aspiration of right ankle to rule out septic joint. Ortho following.
--- NOTE | 2025-06-13 13:57 | PC.NURSE ---
Lab called me to notify that the fluid that was collected from ankle joint was not enough for all the labs that were ordered. Called Dr. Freddie Black and notified and per MD send out culutre first and if there was enough fluid for another lab send the cell cnt with diff. Called lab to update
--- NOTE | 2025-06-13 15:11 | PD.ORTHCONPN ---
Subjective Subjective Brief History: Patient is a 49-year-old female with a longstanding history of diabetes for over 26 years who presents with right ankle swelling. She first noticed the swelling about 1 year ago. 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 After a long period of total contact casting the pain went away for approximately [address] Nunes with a facility maintenance technician in [place]. She reports the pain is increased recently and has been very difficult for her to work because of the pain. She reports the pain is entirely in her ankle. She has a history of asthma and has taken steroids in the past. Narrative: I talked to the cleaner laboratory equipment and they report the cell count was sent in the wrong tube and thus an accurate cell count cannot be provided. We thus discussed the reaspiration of the ankle. To be honest, I do not have a high clinical suspicion for a septic ankle given the patient's story. The pain has been ongoing for over 7 months and has responded well to total contact casting by facility maintenance technician. Although we want to rule out infection, if we cannot get a definitive diagnosis I think that an infection is less likely on the differential as she has known Charcot ankle. I do think an MRI is reasonable with there it is done from an inpatient or outpatient perspective. Furthermore, given that there is was not harish pus and it was primarily sanguinous aspiration, I do think that this is likely a Charcot ankle or avascular necrosis which can be managed outpatient. If we want to make sure that we are not missing an infection, only a repeat aspiration would help unless we wait for the culture results Exam Vital Signs Temp Pulse Resp BP Pulse Ox O2 Del Method 99.7 F 95 16 153/69 H 97 Room Air 06/13/25 12:00 06/13/25 12:50 06/13/25 12:50 06/13/25 12:50 06/13/25 12:50 06/13/25 12:50 Objective - Ortho Labs 06/13/25 05:15 06/13/25 05:15 Labs: Laboratory Results - last 24 hr 06/12/25 06/12/25 06/12/25 18:35 19:07 21:45 WBC 15.8 H RBC 4.08 Hgb 11.5 L Hct 35.3 L MCV 87 MCH 28.2 MCHC 32.6 RDW Std Deviation 43.6 Plt Count 346 Neut % (Auto) 85 H Lymph % (Auto) 7 L [place] % (Auto) 8 Eos % (Auto) 0 Baso % (Auto) 0 Neut # (Auto) 13.4 H Lymph # (Auto) 1.1 [place] # (Auto) 1.2 H Eos # (Auto) 0.0 Baso # (Auto) 0.0 Immature Gran # (Auto) 0.06 H Absolute Nucleated RBC 0.00 Immature Gran % 0 Nucleated RBC % 0 ESR 53 H PT 10.9 INR 1.0 APTT 28.1 Sodium 139 Potassium 3.9 Chloride 103 Carbon Dioxide 27.3 Anion Gap 9 BUN 11 Creatinine 1.0 Estim Creat Clear Calc 88.4 eGFR > 60 BUN/Creatinine Ratio 11 L Glucose [address] Glu mg/dL Hemoglobin A1c Calculated Osmolality 281 Lactic Acid 1.2 Uric Acid Calcium 10.0 Corrected Calcium 10.0 Phosphorus 2.7 Magnesium 1.8 Total Bilirubin 0.5 AST < 10 ALT 11 Alkaline Phosphatase 86 Lactate Dehydrogenase 178 C-Reactive Prot, Quant 25.1 H B-Natriuretic Peptide < 20 Total Protein 7.7 Albumin 4.8 Globulin 2.9 Albumin/Globulin Ratio 1.7 Triglycerides Cholesterol LDL Cholesterol, Calc HDL Cholesterol Cholesterol/HDL Ratio Procalcitonin 0.15 0.18 Ur Collection Type Clean Catch Urine Color Yellow Urine Clarity Clear Urine pH 6.0 Ur Specific [place] 1.029 Urine Protein 1+ A Urine Glucose (UA) Negative Urine Ketones Trace Urine Blood Negative Urine Nitrite Negative Urine Bilirubin Negative Urine Urobilinogen (Auto) Negative Ur Leukocyte Esterase Positive Urine RBC 3 Urine WBC 2 Ur Squamous Epith Cells 1 Amorphous Crystals Present A Urine Bacteria None Hyaline Casts 2 H 06/13/25 05:15 WBC 14.2 H RBC 3.41 L Hgb 9.6 L Hct 29.2 L MCV 86 MCH 28.2 MCHC 32.9 RDW Std Deviation 43.6 Plt Count 256 D Neut % (Auto) 81 H Lymph % (Auto) 10 [place] % (Auto) 8 Eos % (Auto) 0 Baso % (Auto) 0 Neut # (Auto) 11.5 H Lymph # (Auto) 1.5 [place] # (Auto) 1.2 H Eos # (Auto) 0.0 Baso # (Auto) 0.0 Immature Gran # (Auto) 0.06 H Absolute Nucleated RBC 0.00 Immature Gran % 0 Nucleated RBC % 0 ESR PT INR APTT Sodium 140 Potassium 3.8 Chloride 104 Carbon Dioxide 26.1 Anion Gap 10 BUN 9 Creatinine 0.8 Estim Creat Clear Calc 112.0 eGFR > 60 BUN/Creatinine Ratio 11 L Glucose [address] Glu mg/dL 146 H Hemoglobin A1c 6.7 H Calculated Osmolality 281 Lactic Acid Uric Acid 6.0 Calcium 9.5 Corrected Calcium 9.6 Phosphorus 2.8 Magnesium 1.6 Total Bilirubin 0.5 AST < 10 ALT 9 L Alkaline Phosphatase 71 Lactate Dehydrogenase C-Reactive Prot, Quant B-Natriuretic Peptide Total Protein 6.6 Albumin 3.9 D Globulin 2.7 Albumin/Globulin Ratio 1.4 Triglycerides 109 Cholesterol 162 LDL Cholesterol, Calc 82 HDL Cholesterol 58 Cholesterol/HDL Ratio 2.8 L Procalcitonin Ur Collection Type Urine Color Urine Clarity Urine pH Ur Specific [place] Urine Protein Urine Glucose (UA) Urine Ketones Urine Blood Urine Nitrite Urine Bilirubin Urine Urobilinogen (Auto) Ur Leukocyte Esterase Urine RBC Urine WBC Ur Squamous Epith Cells Amorphous Crystals Urine Bacteria Hyaline Casts Documentation for date of: 06/13/25
[2025-06-13] MEDS: ATORVASTATIN CALCIUM 10 MG TABLET 5 MG PO (20:19)
[2025-06-13] MEDS: INSULIN LISPRO (AdmeLOG) 1 UNIT/0.01 ML UNIT SC (20:19)
[2025-06-14] VITALS (9 sets, daily range): BP systolic 116–162; BP diastolic 62–87; PULSE 85–95; RESP 16–94; TEMP 36.3–37.6; O2SAT 93–95
--- NOTE | 2025-06-14 | XR_ITS ---
Examination: MRI right ankle without contrast Date and time of exam: June 14, 2025, 1317 hours, comparison MRI foot January 23, 2025 INDICATION: Ankle swelling beginning November 2024 with fever Technique: Multiple MRI axial and sagittal sections lumbar spine. Sagittal T2-weighted images, TR 3500, TE 118 T1 weighted transverse sections, TR 688 T8.5, T2-weighted sagittal sections T1 weighted sagittal sections TR 621, TE 30 T2 axial sections, TR 4, 190, TE 84. Findings: Severe narrowing tibiotalar joint Cortical erosions Dome of the talus and distal articulating surface of the tibia Medial and lateral malleolar regions are intact with no cortical bone destruction Ankle effusion which extends posterior to the joint space, fluid collection 29 x 22 mm Cortical erosion dorsal anterior surface of the talus, sagittal image 15, measuring 8 mm Prominent bimalleolar edema Biconvex thickening of the Achilles tendon Moderate plantar fasciitis Anterior posterior inferior tibiofibular ligaments intact Anterior posterior talofibular ligaments are thickened but intact Tendinitis posterior tibial flexor digitorum tendons Extensor tendons intact IMPRESSION: Significant erosive arthritic change involving the tibiotalar joint including 8 mm cortical erosion dorsal anterior surface of the talus, differential would include osteomyelitis, Charcot joint, clinical correlation advised Repeating the study with intravenous contrast would be helpful
[2025-06-14] MEDS: HYDROcodone/APAP 5/325 TABLET 1 TAB PO ×3 (00:16→19:30)
--- NOTE | 2025-06-14 04:06 | PC.NURSE ---
[facility] 0200 [facility] 0348.
[2025-06-14] MEDS: PIPER/TAZO INJ 3.375 GM in SODIUM CHLORIDE 0.9% (POP) 100 ML IV ×3 (05:08→21:04)
[2025-06-14 06:21] LABS: Basophils # (Auto) 0.0 Thou/mm3 (0.0-0.2); Basophils % (Auto) 0 % (0-2.5); Eosinophils # (Auto) 0.1 Thou/mm3 (0.0-0.5); Eosinophils % (Auto) 1 % (0-10); Hematocrit 29.2 % (36.0-46.0); Hemoglobin 9.4 g/dL (12.0-16.0); Immature Granulocytes Auto 0.05 Thou/mm3 (0.00-0.00); Lymphocytes # (Auto) 1.5 Thou/mm3 (1.0-4.8); Lymphocytes % (Auto) 12 % (10-50); Mean Corpuscular HGB Conc 32.2 g/dl (31.0-37.0); Mean Corpuscular Hemoglobin 27.7 pg (25.0-35.0); Mean Corpuscular Volume 86 fL (80-100); Monocytes # (Auto) 0.9 Thou/mm3 (0.0-0.8); Monocytes % (Auto) 7 % (0-12); Neutrophils # (Auto) 10.2 Thou/mm3 (1.8-7.7); Neutrophils % (Auto) 80 % (37-80); Nucleated Red Blood Cell # 0.00 Thou/mm3 (0.00-0.00); Nucleated Red Blood Cell % 0 /100 WBC (0); Platelet Count 288 Thou/mm3 (140-440); RDW Standard Deviation 43.0 fL (36.4-46.3); Red Blood Count 3.39 Miln/mm3 (4.00-5.20); White Blood Count 12.8 Thou/mm3 (3.6-11.0)
[2025-06-14 06:54] LABS: Alanine Aminotransferase 11 U/L (10-49); Albumin, Serum 4.0 gm/dL (3.5-5.0); Albumin/Globulin Ratio 1.4 (1.2-2.2); Alkaline Phosphatase 93 U/L (46-116); Anion Gap 8 (7-16); Aspartate Amino Transferase 13 U/L (0-34); BUN/Creatinine Ratio 10 Ratio (12-20); Bilirubin,Total 0.5 mg/dL (0.3-1.2); Blood Urea Nitrogen 9 mg/dL (9-23); Calcium 9.4 mg/dL (8.3-10.6); Calcium (Corrected) 9.4 mg/dL (8.5-10.1); Carbon Dioxide 28.6 mMol/L (20.0-31.0); Chloride 102 mMol/L (98-107); Creatinine (Component) 0.9 mg/dL (0.6-1.3); Estimated Creatinine Clearance 99.5 mL/min (>60); Globulin 2.9 gm/dL (2.3-3.5); Glucose 142 mg/dL (74-106); Magnesium 1.5 mg/dL (1.6-2.6); Osmolality,Calculated 278 (275-295); Phosphorous 3.6 mg/dL (2.4-5.1); Potassium 4.2 mMol/L (3.4-5.1); Sodium 139 mMol/L (136-145); Total Protein 6.9 gm/dL (5.7-8.2); eGFR > 60 See Note
[2025-06-14] MEDS: Magnesium Sulfate 4 GM Ivpb 4 GM/50 ML BAG IV (08:30)
[2025-06-14] MEDS: ENOXAPARIN SOD INJ 40 MG/0.4 ML SYRINGE SC (08:30)
[2025-06-14 10:05] LABS: Vancomycin,Trough 8.7 mcg/mL (5.0-10.0)
[2025-06-14] MEDS: Vancomycin Inj 1,500 MG in SODIUM CHLORIDE 0.9% 500 ML 500 ML 120 MG IV ×2 (11:32→21:05)
--- NOTE | 2025-06-14 11:51 | ESPR_ITS ---
<Statement entered by Alexis Black MD - 06/14/25 15:14> No acute overnight events. Seen and examined at bedside and patient states that her ankle has not improved after aspiration. Informed that we will need to perform a second aspiration due to complications with previous samples. Otherwise she has remained afebrile, leukocytosis improving. Underwent MRI today that showed significant erosive arthritic changes of the tibiotalar joint with an 8 mm cortical erosion of the dorsal anterior surface of the talus. Touch base with orthopedic surgery and will await for aspiration and await for second culture results as first results are growing GPC and blood culture GPC in 1/2 bottles and aerobic bottle only. Will continue with vancomycin and zosyn. ----- Note reviewed and agree with care plan as documented. Please refer to the note below for further details. Plan discussed with attending physician Dr. Neal Black MD PGY-2 Internal Medicine Documentation for date of: 06/14/25 Subjective Subjective Interval history: No acute events overnight. Patient's vitals stable.Patient's pain has been well controlled with norco prn. Patient states pain and swelling is slightly worse than yesterday, states Patient continues to be getting Vanc & Zosyn. Repeat Joint aspiration was not done due to misunderstanding of orders, has since been resolved and ordered, will follow up. Patient reports being febrile and having chills yesterday, charted temperature is afebrile. MRI R ankle showed significant erosive arthritic change involving the tibiotalar joint including 8 mm cortical erosion dorsal anterior surface of the talus. GPC grown on synovial fluid. Planned for I&D 06/15. Exam Vital Signs Temp Pulse Resp BP Pulse Ox O2 Del Method 97.4 F 95 20 125/76 94 L Room Air 06/14/25 11:29 06/14/25 11:29 06/14/25 11:29 06/14/25 11:29 06/14/25 11:06/14/25 11:29 Narrative Exam General: No acute distress; A&Ox3 Skin: R ankle swelling/erythema. HENT: NCAT, EOMI/PERRL, not icteric. External ears normal. No rhinorrhea. Moist mucous membranes Cardiovascular: Regular rate and rhythm, no murmur, +S1/S2. Respiratory: Lungs CTAB GI: Soft, nontender, non-distended. No guarding or rebound tenderness. : No suprapubic tenderness. No flank tenderness bilaterally. Extremities: R foot 2+ edema, Tender R foot/ankle with decreasing tenderness up to the R calf; no cyanosis, no clubbing. Extremity pulses present Neuro: Grossly nonfocal. Moving all 4 extremities. CN not formally tested but appear grossly intact. R foot numbness Psychiatric: Cooperative, appropriate affect. Objective Labs 06/15/25 05:07 06/15/25 05:07 Labs: Laboratory Results - last 24 hr 06/13/25 06/14/25 06/14/25 05:15 05:18 09:40 WBC 12.8 H RBC 3.39 L Hgb 9.4 L Hct 29.2 L MCV 86 MCH 27.7 MCHC 32.2 RDW Std Deviation 43.0 Plt Count 288 D Neut % (Auto) 80 Lymph % (Auto) 12 [place] % (Auto) 7 Eos % (Auto) 1 Baso % (Auto) 0 Neut # (Auto) 10.2 H Lymph # (Auto) 1.5 [place] # (Auto) 0.9 H Eos # (Auto) 0.1 Baso # (Auto) 0.0 Immature Gran # (Auto) 0.05 H Absolute Nucleated RBC 0.00 Immature Gran % 0 Nucleated RBC % 0 Sodium 139 Potassium 4.2 Chloride 102 Carbon Dioxide 28.6 Anion Gap 8 BUN 9 Creatinine 0.9 Estim Creat Clear Calc 99.5 eGFR > 60 BUN/Creatinine Ratio 10 L Glucose 142 H Calculated Osmolality 278 Calcium 9.4 Corrected Calcium 9.4 Phosphorus 3.6 Magnesium 1.5 L Total Bilirubin 0.5 AST 13 ALT 11 Alkaline Phosphatase 93 D Total Protein 6.6 6.9 Albumin 4.0 Globulin 2.7 2.9 Albumin/Globulin Ratio 1.4 1.4 Vancomycin Trough 8.7 Quality Measures Quality Measures VTE prophylaxis Assessment & Plan Assessment Current Active Medications: Generic Name Dose Route Start Last Admin Trade Name Freq PRN Reason Stop Dose Admin Acetaminophen 650 mg 06/12/25 22:32 06/12/25 23:52 Acetaminophen 325 Mg Tablet PO 07/12/25 22:31 650 mg Q6H PRN Administration Fever >101.5 or pain 1-3 Hydrocodone Bitart/Acetaminophen 1 tab 06/13/25 04:29 06/14/25 09:12 Hydrocodone/Apap 5/325 Tablet PO 06/18/25 04:28 1 tab Q6HR PRN Administration PAIN SCALE 4-10(Mod-Sev Atorvastatin Calcium 5 mg 06/13/25 21:00 06/13/25 20:19 Atorvastatin Calcium 10 Mg Tablet PO 07/13/25 20:59 5 mg HS ELIAS Administration Dextrose 25 ml 06/13/25 01:41 Dextrose 50%-Water Inj 50 Ml Syringe IV 07/13/25 01:40 Q15MIN PRN BG 50-70 responsive npo pt Dextrose 50 ml 06/13/25 01:41 Dextrose 50%-Water Inj 50 Ml Syringe IV 07/13/25 01:40 Q15MIN PRN BG <50 OR BG <70 & pt unresponsive Enoxaparin Sodium 40 mg 06/13/25 09:00 06/14/25 08:30 Enoxaparin Sod Inj 40 Mg/0.4 Ml Syringe SC 06/27/25 08:59 40 mg QDAY ELIAS Administration Glucagon 1 mg 06/13/25 01:41 Glucagon Inj 1 Mg Vial IM Q15MIN PRN BG <70, and no IV access Piperacillin Sod/Tazobactam 100 mls @ 25 mls/hr 06/13/25 06:00 06/14/25 05:08 Sod 3.375 gm/ Sodium Chloride IV 06/20/25 05:59 25 mls/hr Q8HR ELIAS Administration Protocol Magnesium Sulfate 4 gm in 50 mls @ 12.5 mls/hr 06/14/25 08:22 06/14/25 08:30 Magnesium Sulfate Ivpb IV 06/14/25 12:21 12.5 mls/hr X1 ONE Administration Vancomycin HCl 1,500 mg/ 500 mls @ 120 mls/hr 06/14/25 10:30 06/14/25 11:32 Sodium Chloride IV 06/21/25 10:29 120 mls/hr BID@1000,2200 ELIAS Administration Insulin Human Lispro 0 unit 06/13/25 20:00 06/14/25 07:37 Insulin Lispro (Admelog) 1 Unit/0.01 Ml Unit SC 07/13/25 19:59 Not Given ACHS ELIAS Protocol Lisinopril 10 mg 06/13/25 09:00 06/14/25 08:30 Lisinopril 2.5 Mg Tablet PO 07/13/25 08:59 10 mg QDAY ELIAS Administration Pharmacy Consult 1 each 06/13/25 09:00 Vancomycin Pharmacy To Dose 1 Each Each IV 07/13/25 08:59 QDAY PRN CONSULT Sennosides 1 tab 06/13/25 00:49 Senna/Docusate Sod 1 Tab Tablet PO 07/13/25 00:48 QDAY PRN CONSTIPATION Protocol Plan This patient is a 49-year-old female with a history of [id number] T2DM, hypertension, hyperlipidemia, arthritis, and GERD who presented to [facility] ED on 06/12 for right ankle pain and swelling. Patient was admitted for osteomyelitis and septic arthritis rule out. #Right ankle swelling #Septic arthritis rule out #History of gout? DDx: Osteomyelitis, septic arthritis, gout flare, pseudogout flare, charcot ankle, AVN Patient noted to have right ankle swelling that was present since November 2024 and has since increased in size and worsened and pain over time. Cool compress with ice initially held, but no longer provides any relief. Initial imaging negative for any acute processes, however now patient endorses fever at home and pain has progressed to where she is unable to bear weight on her right leg. Patient does endorse a history of gout, but is not sure what led to this diagnosis and she does not take any medication for management of this condition. Patient has history of contact cast, making charcot ankle a differential. Patient has used steroids in the past for asthma, possible AVN. Diagnostics: Right ankle MRI taken on 01/23/2025 shows large ankle effusion without acute processes noted Right ankle x-ray taken 06/12 notes bony erosions involving dome of the talus and distal articular surface of the tibia with large ankle effusion, suspicious for osteomyelitis Right lower extremity venous duplex Doppler negative for DVT Patient endorses subjective fevers at home, no fevers recorded in ED except for low-grade temp of 100.1 WBC on admission 15.8 with ESR of 53 and CRP of 25.1; Uric acid wnl Blood culture prelim reported to be GPC with staph appearance. Synovial Fluid grew GPC MRI R ankle showed significant erosive arthritic change involving the tibiotalar joint including 8 mm cortical erosion dorsal anterior surface of the talus. Treatment: Orthopedic surgery consulted, appreciate recommendations IR joint aspiration of right ankle with analysis ordered, pending Ortho will take to OR for I&D 06/15 Vancomycin daily (06/12-) Piperacillin/tazobactam 4.5 gm IV every 6 hours (06/12-) [place] 5/325 1 tablet every 6 hours as needed for pain #Non-insulin dependent type 2 diabetes mellitus Patient noted to have a history of T2DM for which she takes metformin at home. Patient notes that she keeps her hemoglobin A1c at around 6%, however no recent hemoglobin A1c on file, previous 1 was from 2017. Diagnostics: Hemoglobin A1c 6.7 (06/13/2025) Treatment: Sliding scale insulin Bedside glucose checks ACHS #Hypertension Patient endorses a history of hypertension and takes lisinopril at home. Possibly due to pain Treatment: -resumed home lisinopril 10 mg qday #Hyperlipidemia Patient endorses a history of hyperlipidemia and takes simvastatin at home. Diagnostics: Lipid panel wnl Treatment: -ordered simvastatin 10 mg q hs (non-formulary) #GERD Patient has a history of GERD and takes Protonix 40 mg daily for management of this. Treatment: Resumed home Protonix 40 mg daily #Leukocytosis Patient noted to have elevated WBC of 15.8 with left shift on presentation in the ED. Reactive secondary to patient's pain versus active infection with suspected osteomyelitis or septic arthritis. Treatment: Will continue to monitor with daily labs, continue treatment with antibiotics #Anemia, normocytic Patient noted to have hemoglobin of 11.5 with MCV in normal range on admission. Possibly anemia of chronic disease given months long swelling and pain of her right ankle. Treatment: Continue to monitor, transfuse if hemoglobin less than 7 Patient to follow-up outpatient Reason for Hospitalization: Osteomyelitis & septic arthritis DVT Prophylaxis: Lovenox GI Prophylaxis: Protonix Bowel: Senokot PRN Diet: Carbohydrate consistent [place]: N/A Lines: PIV Antibiotics: Zosyn & Vancomycin Code Status: FULL Patient plan of care was discussed with the attending physician, Dr. De Jesus & senior resident Dr. Freddie Aldridge MD PGY-1 Attending Provider Attestation/Addendum I, Paty De Jesus DO, attest that I was physically present for the brambila portions of the service and evaluated the patient with the resident and I reviewed and discussed the case with the resident and agree with the resident's findings and plans of care as documented above Patient seen and evaluated this AM. She states that she continues to have pain in her right ankle. The ankle is more edematous today with erythema on lateral aspects of ankle and tenderness to palpation. Unable to obtain synovial fluid studies due to fluids being sent in wrong tube. Blood and synovial fluid cultures are positive for GPC. Per surgeon, plan for right ankle I&D tomorrow. NPO after midnight.
[2025-06-14] MEDS: ACETAMINOPHEN 325 MG TABLET 650 MG PO ×2 (15:19→23:08)
--- NOTE | 2025-06-14 15:33 | PD.ORTHCONPN ---
Subjective Subjective Brief History: Patient is a 49-year-old female with a longstanding history of diabetes for over 26 years who presents with right ankle swelling. She first noticed the swelling about 1 year ago. She seen a prior behavioral scientist in the past who did total contact casting. After a long period of total contact casting the pain went away for approximately [address] Nunes with a behavioral scientist in [place]. She reports the pain is increased recently and has been very difficult for her to work because of the pain. She reports the pain is entirely in her ankle. She has a history of asthma and has taken steroids in the past. Narrative: Patient has positive blood cultures of gram-positive cocci. She also had 1 sample of a gram-positive cocci in her aspiration. It could not be sent for cell count as it was sent in the wrong tube. Exam Vital Signs Temp Pulse Resp BP Pulse Ox O2 Del Method 97.4 F 95 20 125/76 94 L Room Air 06/14/25 11:29 06/14/25 11:29 06/14/25 11:29 06/14/25 11:29 06/14/25 11:29 06/14/25 11:29 Additional findings Additional findings: An MRI demonstrates erosive changes of her tibial plafond and the talus. Effusion is present as well. The MRI from today demonstrates progression of her arthritis and erosive changes compared to the previous MRI 4 months ago Patient is in no acute distress and is cooperative with the examination today. Breathing is nonlabored. Patient has a normal mood and affect. The patient has a gait that is nonantalgic Bilateral extremities were evaluated and demonstrates sensation intact to light touch. Palpable pedal pulses are present. Swelling is present in the right ankle Bilateral hips were examined. The patient has no pain with log roll of the hips. Internal rotation to 30 degrees and external rotation to 30 degrees is painless. Negative FADIR. Left knee was examined today. The left knee is in reasonable alignment. Range of motion from 0-120 degrees. Knee is stable to varus and valgus as well as AP translation with <5mm. Patient has a negative [place]. There is no pain with patellofemoral compression and no crepitus noted. The knee is nontender to palpation. The right knee was also examined. The right knee is in neutral alignment. Range of motion from 0-120 degrees. Knee is stable to varus and valgus as well as AP translation with <5mm. Patient has a negative [place]. There is no pain with patellofemoral compression and no crepitus noted. The knee is nontender to palpation diffusely. Right ankle is tender to palpation to touch. There is slight erythema. She cannot dorsiflex or plantarflex her ankle due to pain. Range of motion is pain limited. She is able to flex and extend her big toes. Compartments are soft Objective - Ortho Labs 06/14/25 05:18 06/14/25 05:18 Labs: Laboratory Results - last 24 hr 06/14/25 06/14/25 05:18 09:40 WBC 12.8 H RBC 3.39 L Hgb 9.4 L Hct 29.2 L MCV 86 MCH 27.7 MCHC 32.2 RDW Std Deviation 43.0 Plt Count 288 D Neut % (Auto) 80 Lymph % (Auto) 12 [place] % (Auto) 7 Eos % (Auto) 1 Baso % (Auto) 0 Neut # (Auto) 10.2 H Lymph # (Auto) 1.5 [place] # (Auto) 0.9 H Eos # (Auto) 0.1 Baso # (Auto) 0.0 Immature Gran # (Auto) 0.05 H Absolute Nucleated RBC 0.00 Immature Gran % 0 Nucleated RBC % 0 Sodium 139 Potassium 4.2 Chloride 102 Carbon Dioxide 28.6 Anion Gap 8 BUN 9 Creatinine 0.9 Estim Creat Clear Calc 99.5 eGFR > 60 BUN/Creatinine Ratio 10 L Glucose 142 H Calculated Osmolality 278 Calcium 9.4 Corrected Calcium 9.4 Phosphorus 3.6 Magnesium 1.5 L Total Bilirubin 0.5 AST 13 ALT 11 Alkaline Phosphatase 93 D Total Protein 6.9 Albumin 4.0 Globulin 2.9 Albumin/Globulin Ratio 1.4 Vancomycin Trough 8.7 Assessment & Plan Diagnosis (1) Right ankle swelling: Status: Acute (2) Osteomyelitis: Status: Acute (3) Septic arthritis of ankle: Status: Acute Assessment Additional comments: Patient is a 49-year-old female with a longstanding history of diabetes and positive blood cultures with gram-positive cocci. She had a prior aspiration and the cell count was indeterminant as it was sent in the wrong tube. However, both her blood cultures and now her ankle aspiration demonstrates gram-positive cocci. Her symptoms have been ongoing for at least 4 to 5 months and there is now erosive changes consistent with likely osteomyelitis versus Charcot or even both. She has a known behavioral scientist who treated her when this all started. Given that she has a positive blood culture and positive synovial fluid aspiration consistent with gram-positive cocci, I do think that a right ankle irrigation and debridement is in her best interest for progression of her erosive changes and arthritis. I discussed with her that there are significant risks of surgery including and not limited to progression of the arthritis, persistent infection, and persistent pain given that she has erosive changes. We also discussed the risks of neurovascular compromise and injury with an ankle washout. The patient understands the risks and benefits of surgery and would like to proceed with surgery. I also discussed with the patient that I would recommend that she see a behavioral scientist as she has significant erosive changes in her both her tibia and talus and that me she may need a TTC fusion or something like that for her management of Charcot and severe ankle erosive changes at some point. I also discussed with her that she will likely need a PICC in her dispo will be a little dependent on how she does as she lives alone Plan - N.p.o. at midnight - Plan for irrigation debridement of her ankle right tomorrow Documentation for date of: 06/14/25
[2025-06-14] MEDS: ATORVASTATIN CALCIUM 10 MG TABLET 5 MG PO (21:03)
[2025-06-14] MEDS: INSULIN LISPRO (AdmeLOG) 1 UNIT/0.01 ML UNIT SC (21:05)
[2025-06-15] VITALS (13 sets, daily range): BP systolic 123–151; BP diastolic 72–96; PULSE 66–99; RESP 12–95; TEMP 36.2–37.4; O2SAT 93–99
[2025-06-15] MEDS: PIPER/TAZO INJ 3.375 GM in SODIUM CHLORIDE 0.9% (POP) 100 ML IV ×3 (05:39→23:59)
[2025-06-15 05:58] LABS: Basophils # (Auto) 0.0 Thou/mm3 (0.0-0.2); Basophils % (Auto) 0 % (0-2.5); Eosinophils # (Auto) 0.2 Thou/mm3 (0.0-0.5); Eosinophils % (Auto) 2 % (0-10); Hematocrit 28.0 % (36.0-46.0); Hemoglobin 9.1 g/dL (12.0-16.0); Immature Granulocytes Auto 0.06 Thou/mm3 (0.00-0.00); Lymphocytes # (Auto) 1.4 Thou/mm3 (1.0-4.8); Lymphocytes % (Auto) 11 % (10-50); Mean Corpuscular HGB Conc 32.5 g/dl (31.0-37.0); Mean Corpuscular Hemoglobin 28.1 pg (25.0-35.0); Mean Corpuscular Volume 86 fL (80-100); Monocytes # (Auto) 1.0 Thou/mm3 (0.0-0.8); Monocytes % (Auto) 8 % (0-12); Neutrophils # (Auto) 9.9 Thou/mm3 (1.8-7.7); Neutrophils % (Auto) 78 % (37-80); Nucleated Red Blood Cell # 0.00 Thou/mm3 (0.00-0.00); Nucleated Red Blood Cell % 0 /100 WBC (0); Platelet Count 320 Thou/mm3 (140-440); RDW Standard Deviation 43.1 fL (36.4-46.3); Red Blood Count 3.24 Miln/mm3 (4.00-5.20); White Blood Count 12.6 Thou/mm3 (3.6-11.0)
[2025-06-15 06:35] LABS: Alanine Aminotransferase 19 U/L (10-49); Albumin, Serum 4.0 gm/dL (3.5-5.0); Albumin/Globulin Ratio 1.4 (1.2-2.2); Anion Gap 10 (7-16); Aspartate Amino Transferase 20 U/L (0-34); BUN/Creatinine Ratio 15 Ratio (12-20); Bilirubin,Total 0.5 mg/dL (0.3-1.2); Blood Urea Nitrogen 12 mg/dL (9-23); Calcium 9.1 mg/dL (8.3-10.6); Calcium (Corrected) 9.1 mg/dL (8.5-10.1); Carbon Dioxide 24.9 mMol/L (20.0-31.0); Chloride 104 mMol/L (98-107); Creatinine (Component) 0.8 mg/dL (0.6-1.3); Estimated Creatinine Clearance 112.0 mL/min (>60); Globulin 2.9 gm/dL (2.3-3.5); Glucose 141 mg/dL (74-106); Magnesium 1.9 mg/dL (1.6-2.6); Osmolality,Calculated 279 (275-295); Phosphorous 3.4 mg/dL (2.4-5.1); Potassium 4.1 mMol/L (3.4-5.1); Sodium 139 mMol/L (136-145); Total Protein 6.9 gm/dL (5.7-8.2); eGFR > 60 See Note
[2025-06-15 06:36] LABS: Alkaline Phosphatase 130 U/L (46-116)
[2025-06-15] MEDS: VANCOMYCIN/D5W 1500 MG IVPB 300 ML 120 MG IV ×2 (10:46→23:10)
--- NOTE | 2025-06-15 13:55 | ESPR_ITS ---
<Statement entered by Alexis Black MD - 06/15/25 15:13> No acute overnight events. Seen and examined at bedside and patient resting in bed. States that she continues to feel warm with chills and sweats overnight but no recorded fevers. Examination of right lower extremity shows that erythema remains within margins and swelling appears to be improved compared to yesterday. Labs show slight decrease in leukocytosis, stable hemoglobin, and CHEM panel shows increasing alk phos but T. bili within normal limits. Plan is for patient to go to the OR with orthopedic surgery and to undergo joint aspiration with samples to be sent off to lab and irrigation debridement. Blood culture and fluid from joint aspiration growing MSSA with repeat blood culture pending. Will continue with broad-spectrum antibiotics with vancomycin and Zosyn and follow-up ortho recs after procedure. ----- Note reviewed and agree with care plan as documented. Please refer to the note below for further details. Plan discussed with attending physician Dr. Neal Black MD PGY-2 Internal Medicine Documentation for date of: 06/15/25 Subjective Subjective Interval history: No acute events overnight. Patient's ankle swelling and erythema was demarcated, today showing some improvement after patient elevated it overnight. Plan for joint aspiration and I&D today. Also waiting for final results from 06/14 blood cultures in order to put picc line in for outpatient antibiotics. Exam Vital Signs Temp Pulse Resp BP Pulse Ox O2 Del Method 99.4 F 96 20 146/76 H 95 Room Air 06/15/25 11:27 06/15/25 11:27 06/15/25 11:27 06/15/25 11:27 06/15/25 11:27 06/15/25 11:27 Narrative Exam General: No acute distress; A&Ox3 Skin: R ankle swelling/erythema. No other rashes or skin breakages noted HENT: NCAT, EOMI/PERRL, not icteric. External ears normal. No rhinorrhea. Moist mucous membranes Cardiovascular: Regular rate and rhythm, no murmur, +S1/S2. Respiratory: Lungs CTAB GI: Soft, nontender, non-distended. No guarding or rebound tenderness. : No suprapubic tenderness. No flank tenderness bilaterally. Extremities: R foot demarcated with improvement; 2+ edema, Tender R foot/ankle with decreasing tenderness up to the R calf; no cyanosis, no clubbing. Extremity pulses present Neuro: Grossly nonfocal. Moving all 4 extremities. CN not formally tested but appear grossly intact. R foot numbness Psychiatric: Cooperative, appropriate affect. Objective Labs 06/16/25 04:24 06/16/25 04:24 Labs: Laboratory Results - last 24 hr 06/12/25 06/15/25 18:35 05:07 WBC 15.8 H 12.6 H RBC 4.08 3.24 L Hgb 11.5 L 9.1 L Hct 35.3 L 28.0 L MCV 87 86 MCH 28.2 28.1 MCHC 32.6 32.5 RDW Std Deviation 43.6 43.1 Plt Count 346 320 D Neut % (Auto) 85 H 78 Lymph % (Auto) 7 L 11 [place] % (Auto) 8 8 Eos % (Auto) 0 2 Baso % (Auto) 0 0 Neut # (Auto) 13.4 H 9.9 H Lymph # (Auto) 1.1 1.4 [place] # (Auto) 1.2 H 1.0 H Eos # (Auto) 0.0 0.2 Baso # (Auto) 0.0 0.0 Immature Gran # (Auto) 0.06 H 0.06 H Absolute Nucleated RBC 0.00 0.00 Immature Gran % 0 1 H Nucleated RBC % 0 0 ESR 53 H Sodium 139 139 Potassium 3.9 4.1 Chloride 103 104 Carbon Dioxide 27.3 24.9 Anion Gap 9 10 BUN 11 12 Creatinine 1.0 0.8 Estim Creat Clear Calc 88.4 112.0 eGFR > 60 > 60 BUN/Creatinine Ratio 11 L 15 Glucose 185 H 141 H Calculated Osmolality 281 279 Lactic Acid 1.2 Calcium 10.0 9.1 Corrected Calcium 10.0 9.1 Phosphorus 3.4 Magnesium 1.9 Total Bilirubin 0.5 0.5 AST < 10 20 ALT 11 19 Alkaline Phosphatase 86 130 H D C-Reactive Prot, Quant 25.1 H Total Protein 7.7 6.9 Albumin 4.8 4.0 Globulin 2.9 2.9 Albumin/Globulin Ratio 1.7 1.4 Procalcitonin 0.15 Quality Measures Quality Measures VTE prophylaxis Assessment & Plan Assessment Current Active Medications: Generic Name Dose Route Start Last Admin Trade Name Freq PRN Reason Stop Dose Admin Acetaminophen 650 mg 06/12/25 22:32 06/14/25 23:08 Acetaminophen 325 Mg Tablet PO 07/12/25 22:31 650 mg Q6H PRN Administration Fever >101.5 or pain 1-3 Hydrocodone Bitart/Acetaminophen 1 tab 06/13/25 04:29 06/14/25 19:30 Hydrocodone/Apap 5/325 Tablet PO 06/18/25 04:28 1 tab Q6HR PRN Administration PAIN SCALE 4-10(Mod-Sev Atorvastatin Calcium 5 mg 06/13/25 21:00 06/14/25 21:03 Atorvastatin Calcium 10 Mg Tablet PO 07/13/25 20:59 5 mg HS ELIAS Administration Dextrose 25 ml 06/13/25 01:41 Dextrose 50%-Water Inj 50 Ml Syringe IV 07/13/25 01:40 Q15MIN PRN BG 50-70 responsive npo pt Dextrose 50 ml 06/13/25 01:41 Dextrose 50%-Water Inj 50 Ml Syringe IV 07/13/25 01:40 Q15MIN PRN BG <50 OR BG <70 & pt unresponsive Enoxaparin Sodium 40 mg 06/13/25 09:00 06/15/25 08:02 Enoxaparin Sod Inj 40 Mg/0.4 Ml Syringe SC 06/27/25 08:59 Not Given QDAY ELIAS Glucagon 1 mg 06/13/25 01:41 Glucagon Inj 1 Mg Vial IM Q15MIN PRN BG <70, and no IV access Piperacillin Sod/Tazobactam 100 mls @ 25 mls/hr 06/13/25 06:00 06/15/25 05:39 Sod 3.375 gm/ Sodium Chloride IV 06/20/25 05:59 25 mls/hr Q8HR ELIAS Administration Protocol Vancomycin HCl/Dextrose 300 mls @ 120 mls/hr 06/15/25 10:00 06/15/25 10:46 Vancomycin/D5w 1500 Mg Ivpb IV 06/22/25 09:59 120 mls/hr BID@1000,2200 [facility] Administration Protocol Insulin Human Lispro 0 unit 06/13/25 20:00 06/15/25 11:12 Insulin Lispro (Admelog) 1 Unit/0.01 Ml Unit SC 07/13/25 19:59 Not Given ACHS ELIAS Protocol Lisinopril 10 mg 06/13/25 09:00 12/04/25 08:02 Lisinopril 2.5 Mg Tablet PO 07/13/25 08:59 10 mg QDAY ELIAS Administration Pharmacy Consult 1 each 06/13/25 09:00 Vancomycin Pharmacy To Dose 1 Each Each IV 07/13/25 08:59 QDAY PRN CONSULT Sennosides 1 tab 06/13/25 00:49 Senna/Docusate Sod 1 Tab Tablet PO 07/13/25 00:48 QDAY PRN CONSTIPATION Protocol Plan This patient is a 49-year-old female with a history of [id number] T2DM, hypertension, hyperlipidemia, arthritis, and GERD who presented to [facility] ED on 06/12 for right ankle pain and swelling. Patient was admitted for osteomyelitis and septic arthritis rule out. #Right ankle swelling #Septic arthritis rule out #History of gout? DDx: Osteomyelitis, septic arthritis, gout flare, pseudogout flare, charcot ankle, AVN Patient noted to have right ankle swelling that was present since November 2024 and has since increased in size and worsened and pain over time. Cool compress with ice initially held, but no longer provides any relief. Initial imaging negative for any acute processes, however now patient endorses fever at home and pain has progressed to where she is unable to bear weight on her right leg. Patient does endorse a history of gout, but is not sure what led to this diagnosis and she does not take any medication for management of this condition. Patient has history of contact cast, making charcot ankle a differential. Patient has used steroids in the past for asthma, possible AVN. Diagnostics: Right ankle MRI taken on 01/23/2025 shows large ankle effusion without acute processes noted Right ankle x-ray taken 06/12 notes bony erosions involving dome of the talus and distal articular surface of the tibia with large ankle effusion, suspicious for osteomyelitis Right lower extremity venous duplex Doppler negative for DVT Patient endorses subjective fevers at home, no fevers recorded in ED except for low-grade temp of 100.1 WBC on admission 15.8 with ESR of 53 and CRP of 25.1; Uric acid wnl Blood culture prelim reported to be GPC with staph appearance. Synovial Fluid grew GPC MRI R ankle showed significant erosive arthritic change involving the tibiotalar joint including 8 mm cortical erosion dorsal anterior surface of the talus. Treatment: Orthopedic surgery consulted, appreciate recommendations IR joint aspiration of right ankle with analysis ordered, planned to take place with I&D 06/15. Vancomycin daily (06/12-) Piperacillin/tazobactam 4.5 gm IV every 6 hours (06/12-) [place] 5/325 1 tablet every 6 hours as needed for pain Following up final results from 06/14 blood cultures in order to put picc line in for outpatient antibiotics. #Non-insulin dependent type 2 diabetes mellitus Patient noted to have a history of T2DM for which she takes metformin at home. Patient notes that she keeps her hemoglobin A1c at around 6%, however no recent hemoglobin A1c on file, previous 1 was from 2017. Diagnostics: Hemoglobin A1c 6.7 (06/13/2025) Treatment: Sliding scale insulin Bedside glucose checks ACHS #Hypertension Patient endorses a history of hypertension and takes lisinopril at home. Possibly due to pain Treatment: -resumed home lisinopril 10 mg qday #Hyperlipidemia Patient endorses a history of hyperlipidemia and takes simvastatin at home. Diagnostics: Lipid panel wnl Treatment: -ordered simvastatin 10 mg q hs (non-formulary) #GERD Patient has a history of GERD and takes Protonix 40 mg daily for management of this. Treatment: Resumed home Protonix 40 mg daily #Leukocytosis Patient noted to have elevated WBC of 15.8 with left shift on presentation in the ED. Reactive secondary to patient's pain versus active infection with suspected osteomyelitis or septic arthritis. Treatment: Will continue to monitor with daily labs, continue treatment with antibiotics #Anemia, normocytic Patient noted to have hemoglobin of 11.5 with MCV in normal range on admission. Possibly anemia of chronic disease given months long swelling and pain of her right ankle. Treatment: Continue to monitor, transfuse if hemoglobin less than 7 Patient to follow-up outpatient Reason for Hospitalization: Osteomyelitis & septic arthritis DVT Prophylaxis: Lovenox GI Prophylaxis: Protonix Bowel: Senokot PRN Diet: Carbohydrate consistent [place]: N/A Lines: PIV Antibiotics: Zosyn & Vancomycin Code Status: FULL Patient plan of care was discussed with the attending physician, Dr. De Jesus & senior resident Dr. Freddie Aldridge MD PGY-1 Attending Provider Attestation/Addendum Paty Cruz, DO, attest that I was physically present for the brambila portions of the service and evaluated the patient with the resident and I reviewed and discussed the case with the resident and agree with the resident's findings and plans of care as documented above Patient seen and evaluated this AM. She reports subjective fevers and chills. Right lower extremity edema is mildly improved with elevation. She is pending I&D this afternoon with ortho. Cultures remains positive for GPC. She will likely need a PICC line. Pending repeat blood cultures and final speciation. Continue with Vancomycin and zosyn, pending c/s for further narrowing of abx.
--- NOTE | 2025-06-15 15:05 | PC.SS ---
Patient is alert/oriented. Patient was able to verify demographics. Patient was admitted for osteomyelitis. Patient states she resides alone. She is employed at [employer]. Patient is independent with ADL's. Patient states if she needs i.v antibiotics and needs a picc line, she would rather return home. She has a sister who lives close by and has two friends who agreed to help if needed. Patient's discharge plan is to return home. PCP: Dr. Elder Oropeza. Last appt was last month. Pharmacy: [facility] medical decision maker: Alba Knowles,
--- NOTE | 2025-06-15 16:05 | PD.SUROPNT ---
Date of Procedure 06/15/25 Pre Op Diagnosis right septic ankle and osteomyelitis Post Op Diagnosis right septic ankle and osteomyelitis Procedure right ankle open irrigation and debridement Findings purulence Procedure Description Indications: Patient is a 49-year-old female with a positive culture during her ankle aspiration consistent with gram-positive cocci. She has a history of diabetes and was previously treated for Charcot arthropathy. Given the erythema and positive culture, we discussed irrigation and debridement for her septic ankle and osteomyelitis is reasonable options. She also has significant erosions in her talus and distal tibia consistent with Charcot versus osteomyelitis. Procedure in detail: The patient was prepped and draped in usual sterile fashion. A timeout was performed to verify that the right side was the correct side. The patient was found to have a limited dorsiflexion and plantarflexion preoperatively. She could only dorsiflex to 10 degrees short of neutral even with anesthesia. A 5cm anterior medial incision was made just medial to the tibialis anterior. Dissection was performed until the capsule could be visualized. No significant bleeders were encountered. We then made an arthrotomy and with a vertical incision. Purulence was found and the dome of the talus was inspected. We obtain 2 cultures from the joint. Arthritic changes were noted. We used cystoscopy tubing and irrigated the ankle joint with 6 L of saline. We debrided any devitalized tissue. He was found that there was some necrosis tissue on the dome of the talus. After irrigation was performed, we ensured having achieved adequate hemostasis. 3-0 nylon was used for closure of the skin. A sterile dressing was applied with Xeroform followed by Johnna and alexandro. Postoperative plan: Patient can be weightbearing as tolerated. A boot can be used for comfort. 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
--- NOTE | 2025-06-15 16:13 | SUR.PHASEI ---
1613: Pt. AAOx4, vitals stable, breathing unlabored, complaint of pain, no complaint of nausea, dressing to right ankle CDI, no active bleed noted, bilateral feet cap refill less than 3 seconds, pt. able to move bilateral legs, report received from Martin HUANG and Evelin POWELL.
[2025-06-15] MEDS: HYDROmorphone INJ 2 MG/ML VIAL 0.5 MG IVP (16:21)
[2025-06-15] MEDS: fentaNYL CIT INJ 50 mCg/ML AMP 2ML IVP ×2 (16:32→16:40)
[2025-06-15] MEDS: ONDANSETRON INJ 2 MG/ML INJ 2 ML 4 MG IVP (16:33)
--- NOTE | 2025-06-15 16:50 | SUR.PHASEI ---
1650: Pt. AAOx4, vitals stable, breathing unlabored, complaint of pain and nausea, pt. stated they are both at a tolerable level after medications, dressing to right ankle CDI, no active bleed noted, bilateral cap refill to feet less than 3 seconds, pt. able to move bilateral legs, gave report to Reina HUANG prior to transfer to room 373, family made aware of transfer to room.
[2025-06-15] MEDS: HYDROcodone/APAP 5/325 TABLET 1 TAB PO (17:43)
[2025-06-15] MEDS: ATORVASTATIN CALCIUM 10 MG TABLET 5 MG PO (20:17)
[2025-06-15] MEDS: ACETAMINOPHEN 325 MG TABLET 650 MG PO (20:37)
[2025-06-15] MEDS: INSULIN LISPRO (AdmeLOG) 1 UNIT/0.01 ML UNIT SC (20:38)
[2025-06-15 22:56] LABS: Vancomycin,Trough 13.4 mcg/mL (5.0-10.0)
[2025-06-16] VITALS (11 sets, daily range): BP systolic 106–143; BP diastolic 61–91; PULSE 59–80; RESP 17–98; TEMP 36.1–36.7; O2SAT 93–98
[2025-06-16] MEDS: HYDROcodone/APAP 5/325 TABLET 1 TAB PO ×4 (04:29→23:40)
[2025-06-16 05:54] LABS: Basophils # (Auto) 0.0 Thou/mm3 (0.0-0.2); Basophils % (Auto) 0 % (0-2.5); Eosinophils # (Auto) 0.0 Thou/mm3 (0.0-0.5); Eosinophils % (Auto) 0 % (0-10); Hematocrit 30.0 % (36.0-46.0); Hemoglobin 9.8 g/dL (12.0-16.0); Immature Granulocytes Auto 0.06 Thou/mm3 (0.00-0.00); Lymphocytes # (Auto) 0.8 Thou/mm3 (1.0-4.8); Lymphocytes % (Auto) 8 % (10-50); Mean Corpuscular HGB Conc 32.7 g/dl (31.0-37.0); Mean Corpuscular Hemoglobin 28.0 pg (25.0-35.0); Mean Corpuscular Volume 86 fL (80-100); Monocytes # (Auto) 0.4 Thou/mm3 (0.0-0.8); Monocytes % (Auto) 4 % (0-12); Neutrophils # (Auto) 9.4 Thou/mm3 (1.8-7.7); Neutrophils % (Auto) 88 % (37-80); Nucleated Red Blood Cell # 0.00 Thou/mm3 (0.00-0.00); Nucleated Red Blood Cell % 0 /100 WBC (0); Platelet Count 393 Thou/mm3 (140-440); RDW Standard Deviation 42.4 fL (36.4-46.3); Red Blood Count 3.50 Miln/mm3 (4.00-5.20); White Blood Count 10.7 Thou/mm3 (3.6-11.0)
[2025-06-16 06:36] LABS: Alanine Aminotransferase 29 U/L (10-49); Albumin, Serum 4.4 gm/dL (3.5-5.0); Albumin/Globulin Ratio 1.5 (1.2-2.2); Alkaline Phosphatase 175 U/L (46-116); Anion Gap 11 (7-16); Aspartate Amino Transferase 25 U/L (0-34); BUN/Creatinine Ratio 21 Ratio (12-20); Bilirubin,Total 0.4 mg/dL (0.3-1.2); Blood Urea Nitrogen 17 mg/dL (9-23); Calcium 9.5 mg/dL (8.3-10.6); Calcium (Corrected) 9.5 mg/dL (8.5-10.1); Carbon Dioxide 25.1 mMol/L (20.0-31.0); Chloride 102 mMol/L (98-107); Creatinine (Component) 0.8 mg/dL (0.6-1.3); Estimated Creatinine Clearance 112.0 mL/min (>60); Globulin 3.0 gm/dL (2.3-3.5); Glucose 197 mg/dL (74-106); Magnesium 2.1 mg/dL (1.6-2.6); Osmolality,Calculated 282 (275-295); Phosphorous 3.7 mg/dL (2.4-5.1); Potassium 4.2 mMol/L (3.4-5.1); Sodium 138 mMol/L (136-145); Total Protein 7.4 gm/dL (5.7-8.2); eGFR > 60 See Note
[2025-06-16] MEDS: ENOXAPARIN SOD INJ 40 MG/0.4 ML SYRINGE SC (08:36)
--- NOTE | 2025-06-16 09:43 | PD.IDPROG ---
Subjective Subjective Interval history: sepsis with septic arthritis of knee noted. Exam Vital Signs Temp Pulse Resp BP Pulse Ox O2 Del Method O2 Flow Rate 97.3 F 59 L 18 122/77 93 L Room Air 4 06/16/25 08:00 06/16/25 08:35 06/16/25 08:00 06/16/25 08:35 06/16/25 08:00 06/16/25 04:00 06/15/25 16:23 Narrative Exam moves toes limited use of rt ankle noted. lives alone so home rx challenging Objective - Internal Medicine Labs 06/16/25 04:24 06/16/25 04:24 Labs: Laboratory Results - last 24 hr 06/13/25 06/15/25 06/16/25 12:48 21:08 04:24 WBC 10.7 RBC 3.50 L Hgb 9.8 L Hct 30.0 L MCV 86 MCH 28.0 MCHC 32.7 RDW Std Deviation 42.4 Plt Count 393 D Neut % (Auto) 88 H Lymph % (Auto) 8 L [place] % (Auto) 4 Eos % (Auto) 0 Baso % (Auto) 0 Neut # (Auto) 9.4 H Lymph # (Auto) 0.8 L [place] # (Auto) 0.4 Eos # (Auto) 0.0 Baso # (Auto) 0.0 Immature Gran # (Auto) 0.06 H Absolute Nucleated RBC 0.00 Immature Gran % 1 H Nucleated RBC % 0 Sodium 138 Potassium 4.2 Chloride 102 Carbon Dioxide 25.1 Anion Gap 11 BUN 17 Creatinine 0.8 Estim Creat Clear Calc 112.0 eGFR > 60 BUN/Creatinine Ratio 21 H Glucose 197 H D Calculated Osmolality 282 Calcium 9.5 Corrected Calcium 9.5 Phosphorus 3.7 Magnesium 2.1 Total Bilirubin 0.4 AST 25 ALT 29 Alkaline Phosphatase 175 H D Total Protein 7.4 Albumin 4.4 Globulin 3.0 Albumin/Globulin Ratio 1.5 Synovial Source Cancelled Synovial Color Cancelled Synovial Appearance Cancelled Synovial WBC Cancelled Synovial RBC Cancelled Synov Polynuclear WBCs Cancelled Synov Mononuclear WBCs Cancelled Synovial Fluid Comment Cancelled Vancomycin Trough 13.4 H Assessment & Plan A&P Narrative sepsis mssa but with marginal s to ox at adilene 1 with adilene 1 to vanco as well but levels easier with vanco on vanco since 06/13. htn hld suggest vanco thru 07/11 . if you use naf or ox. that is ok but the germ is not that s so maximize doses. she is advised that she may need to stay the weekend to get rx approved for home. Time Spent With Patient Time: Total time spent is greater than 50% in coordination of care (as documented) at patient's floor/unit and/or counseling patient:
--- NOTE | 2025-06-16 09:55 | PC.SS ---
rounding note: Patient had an I & D yesterday with Dr Miller. ID physician consulting. If patient needs i.v. antibiotics out patient she is agreeable with home health services. Patient has family and a few friends who can assist as needed.
[2025-06-16 10:17] LABS: Glucose Estimated Average 151 mg/dL (80-131); Hemoglobin A1C 6.9 % Hgb (4.8-6.0)
[2025-06-16] MEDS: Vancomycin Inj 1,000 MG, Vancomycin Inj 750 MG in SODIUM CHLORIDE 0.9% 500 ML 500 ML 171.429 MG IV (10:32)
[2025-06-16 10:58] LABS: Hepatitis C Antibody Non Reactive (Non React)
[2025-06-16 12:54] LABS: HIV (1&2) Antibody Rapid Non-Reactive
--- NOTE | 2025-06-16 13:57 | ESPR_ITS ---
<Statement entered by Alexis Black MD - 06/16/25 17:01> No acute overnight events. Seen and examined at bedside and she states that her pain and paresthesias have improved after going to the OR. Per Ortho note, purulence was found in wound and 2 cultures were obtained. Arthritic changes were noted and underwent irrigation with saline. Also found to have some necrotic tissue at the dome of the talus. Procedure occurred without any complications and recommended that she continue to see her existing cage loader or foot/ankle specialist as she may need a TTC fusion in the future. Otherwise, we will follow-up on culture results and per ID recommendation she will require vancomycin via PICC line through 07/11. Will await for cultures to finalize prior to obtaining PICC line. ----- Note reviewed and agree with care plan as documented. Please refer to the note below for further details. Plan discussed with attending physician Dr. Neal Black MD PGY-2 Internal Medicine Documentation for date of: 06/16/25 Subjective Subjective Interval history: Patient had no acute events overnight. Patient was seen this morning with family present. Patient states her swelling has gotten better along with decreased numbness. Patient states her pain is well controlled. Patient denies any chest pain, shortness of breath, abdominal pain. We are awaiting patient blood cultures to be negative FINAL in order to place picc line for outpatient abx. Exam Vital Signs Temp Pulse Resp BP Pulse Ox O2 Del Method O2 Flow Rate 97.0 F 80 18 143/91 H 95 Room Air 4 06/16/25 11:32 06/16/25 11:32 06/16/25 11:32 06/16/25 11:32 06/16/25 11:32 06/16/25 11:32 06/15/25 16:23 Narrative Exam General: No acute distress; A&Ox3 Skin: R ankle erythema. No other rashes or skin breakages noted HENT: NCAT, EOMI/PERRL, not icteric. External ears normal. No rhinorrhea. Moist mucous membranes Cardiovascular: Regular rate and rhythm, no murmur, +S1/S2. Respiratory: Lungs CTAB GI: Soft, nontender, non-distended. No guarding or rebound tenderness. : No suprapubic tenderness. No flank tenderness bilaterally. Extremities: R foot swelling and erythema decreased from yesterday; R ankle wrapped and in cast, clean and dry. no cyanosis, no clubbing. Extremity pulses present Neuro: Grossly nonfocal. Moving all 4 extremities. CN not formally tested but appear grossly intact. R foot numbness decreased compared to yesterday. Psychiatric: Cooperative, appropriate affect. Objective Labs 06/17/25 05:00 06/17/25 05:00 Labs: Laboratory Results - last 24 hr 06/13/25 06/15/25 06/16/25 12:48 21:08 04:24 WBC 10.7 RBC 3.50 L Hgb 9.8 L Hct 30.0 L MCV 86 MCH 28.0 MCHC 32.7 RDW Std Deviation 42.4 Plt Count 393 D Neut % (Auto) 88 H Lymph % (Auto) 8 L [place] % (Auto) 4 Eos % (Auto) 0 Baso % (Auto) 0 Neut # (Auto) 9.4 H Lymph # (Auto) 0.8 L [place] # (Auto) 0.4 Eos # (Auto) 0.0 Baso # (Auto) 0.0 Immature Gran # (Auto) 0.06 H Absolute Nucleated RBC 0.00 Immature Gran % 1 H Nucleated RBC % 0 Sodium 138 Potassium 4.2 Chloride 102 Carbon Dioxide 25.1 Anion Gap 11 BUN 17 Creatinine 0.8 Estim Creat Clear Calc 112.0 eGFR > 60 BUN/Creatinine Ratio 21 H Glucose [address] Glu mg/dL 151 H Hemoglobin A1c 6.9 H Calculated Osmolality 282 Calcium 9.5 Corrected Calcium 9.5 Phosphorus 3.7 Magnesium 2.1 Total Bilirubin 0.4 AST 25 ALT 29 Alkaline Phosphatase 175 H D Total Protein 7.4 Albumin 4.4 Globulin 3.0 Albumin/Globulin Ratio 1.5 Synovial Source Cancelled Synovial Color Cancelled Synovial Appearance Cancelled Synovial WBC Cancelled Synovial RBC Cancelled Synov Polynuclear WBCs Cancelled Synov Mononuclear WBCs Cancelled Synovial Fluid Comment Cancelled Vancomycin Trough 13.4 H Hepatitis C Antibody Non Reactive HIV 1&2 Antibody Rapid Non-Reactive Quality Measures Quality Measures VTE prophylaxis Assessment & Plan Assessment Current Active Medications: Generic Name Dose Route Start Last Admin Trade Name Freq PRN Reason Stop Dose Admin Acetaminophen 650 mg 06/12/25 22:32 06/15/25 20:37 Acetaminophen 325 Mg Tablet PO 07/12/25 22:31 650 mg Q6H PRN Administration Fever >101.5 or pain 1-3 Hydrocodone Bitart/Acetaminophen 1 tab 06/13/25 04:29 06/16/25 10:33 Hydrocodone/Apap 5/325 Tablet PO 06/18/25 04:28 1 tab Q6HR PRN Administration PAIN SCALE 4-10(Mod-Sev Albuterol/Ipratropium 3 ml 06/15/25 15:27 Albuterol/Ipratropium (Duoneb) Rt Joceline 3 Ml Nebu INH 07/15/25 15:26 Q4HRRT PRN SHORTNESS OF BREATH Atorvastatin Calcium 5 mg 06/13/25 21:00 06/15/25 20:17 Atorvastatin Calcium 10 Mg Tablet PO 07/13/25 20:59 5 mg HS ELIAS Administration Dextrose 25 ml 06/13/25 01:41 Dextrose 50%-Water Inj 50 Ml Syringe IV 07/13/25 01:40 Q15MIN PRN BG 50-70 responsive npo pt Dextrose 50 ml 06/13/25 01:41 Dextrose 50%-Water Inj 50 Ml Syringe IV 07/13/25 01:40 Q15MIN PRN BG <50 OR BG <70 & pt unresponsive Enoxaparin Sodium 40 mg 06/13/25 09:00 06/16/25 08:36 Enoxaparin Sod Inj 40 Mg/0.4 Ml Syringe SC 06/27/25 08:59 40 mg QDAY ELIAS Administration Glucagon 1 mg 06/13/25 01:41 Glucagon Inj 1 Mg Vial IM Q15MIN PRN BG <70, and no IV access Vancomycin HCl 1,000 mg/ 500 mls @ 171.429 mls/hr 06/16/25 10:00 06/16/25 10:32 Vancomycin HCl 750 mg/ Sodium IV 06/23/25 09:59 171.429 mls/hr Chloride BID@1000,2200 [facility] Administration Protocol Insulin Human Lispro 0 unit 06/13/25 20:00 06/16/25 10:56 Insulin Lispro (Admelog) 1 Unit/0.01 Ml Unit SC 07/13/25 19:59 Not Given ACHS [facility] Protocol Lisinopril 10 mg 06/13/25 09:00 06/16/25 08:35 Lisinopril 2.5 Mg Tablet PO 07/13/25 08:59 10 mg QDAY ELIAS Administration Pharmacy Consult 1 each 06/13/25 09:00 Vancomycin Pharmacy To Dose 1 Each Each IV 07/13/25 08:59 QDAY PRN CONSULT Sennosides 1 tab 06/13/25 00:49 Senna/Docusate Sod 1 Tab Tablet PO 07/13/25 00:48 QDAY PRN CONSTIPATION Protocol Plan This patient is a 49-year-old female with a history of [id number] T2DM, hypertension, hyperlipidemia, arthritis, and GERD who presented to [facility] ED on 06/12 for right ankle pain and swelling. Patient was admitted for osteomyelitis and septic arthritis rule out; s/p I&D right ankle 06/15. #Septic Arthritis of right ankle #Osteomyelitis of right ankle #Staph aureus bacteremia DDx: Osteomyelitis, septic arthritis, gout flare, pseudogout flare, charcot ankle, AVN Patient noted to have right ankle swelling that was present since November 2024 and has since increased in size and worsened and pain over time. Cool compress with ice initially held, but no longer provides any relief. Initial imaging negative for any acute processes, however now patient endorses fever at home and pain has progressed to where she is unable to bear weight on her right leg. Patient does endorse a history of gout, but is not sure what led to this diagnosis and she does not take any medication for management of this condition. Patient has history of contact cast, making charcot ankle a differential. Patient has used steroids in the past for asthma, possible AVN. Diagnostics: WBC on admission 15.8 with ESR of 53 and CRP of 25.1; Uric acid wnl Blood culture prelim reported to be GPC with staph appearance. Synovial Fluid grew S.aureus Discontinued Zosyn (06/12-06/16) MRI R ankle showed significant erosive arthritic change involving the tibiotalar joint including 8 mm cortical erosion dorsal anterior surface of the talus. S/P Right ankle I&D 06/15. Treatment: Orthopedic surgery consulted, appreciate recommendations I.D. consulted, appreciate recommendations Vancomycin daily (06/12-) [place] 5/325 1 tablet every 6 hours as needed for pain Following up final results from 06/14 blood cultures for PICC line abx outpatient (Vancomycin) #Non-insulin dependent type 2 diabetes mellitus Patient noted to have a history of T2DM for which she takes metformin at home. Patient notes that she keeps her hemoglobin A1c at around 6%, however no recent hemoglobin A1c on file, previous 1 was from 2017. Diagnostics: Hemoglobin A1c 6.7 (06/13/2025) Treatment: Sliding scale insulin Bedside glucose checks ACHS #Hypertension Patient endorses a history of hypertension and takes lisinopril at home. Possibly due to pain Treatment: -resumed home lisinopril 10 mg qday #Hyperlipidemia Patient endorses a history of hyperlipidemia and takes simvastatin at home. Diagnostics: Lipid panel wnl Treatment: -ordered simvastatin 10 mg q hs (non-formulary) #GERD Patient has a history of GERD and takes Protonix 40 mg daily for management of this. Treatment: Resumed home Protonix 40 mg daily #Leukocytosis Patient noted to have elevated WBC of 15.8 with left shift on presentation in the ED. Reactive secondary to patient's pain versus active infection with suspected osteomyelitis or septic arthritis. Treatment: Will continue to monitor with daily labs, continue treatment with antibiotics #Anemia, normocytic Patient noted to have hemoglobin of 11.5 with MCV in normal range on admission. Possibly anemia of chronic disease given months long swelling and pain of her right ankle. Treatment: Continue to monitor, transfuse if hemoglobin less than 7 Patient to follow-up outpatient Reason for Hospitalization: Osteomyelitis & septic arthritis DVT Prophylaxis: Lovenox 40 mg qd GI Prophylaxis: none Bowel: Senokot PRN Diet: Regular Lines: PIV Antibiotics: Vancomycin Code Status: FULL Patient plan of care was discussed with the attending physician, Dr. De Jesus & senior resident Dr. Freddie Aldridge MD PGY-1 Attending Provider Attestation/Addendum I, Paty De Jesus DO, attest that I was physically present for the brambila portions of the service and evaluated the patient with the resident and I reviewed and discussed the case with the resident and agree with the resident's findings and plans of care as documented above Patient seen and evaluated this afternoon as patient had been sleeping in the AM. She is POD1 from right ankle open irrigation and debridement. She states she immediately felt much improved following procedure. She states that sensation to her toes, swelling and range of motion have much improved. Patient was found to have purulence, necrotic tissue and erosion of dome of talus with which were debrided. Patient will need IV abx. Repeat blood cultures show NGTD x 24h. Will await final cultures to be negative before placing PICC line. Cultures were also obtained perioperatively which we will await. ID recommends continuing with vancomycin at this time until 07/11
[2025-06-16] MEDS: ATORVASTATIN CALCIUM 10 MG TABLET 5 MG PO (21:14)
[2025-06-16] MEDS: Vancomycin Inj 1,000 MG, Vancomycin Inj 750 MG in SODIUM CHLORIDE 0.9% 500 ML 500 ML 171 MG IV (21:59)
[2025-06-17] VITALS (8 sets, daily range): BP systolic 113–149; BP diastolic 62–83; PULSE 66–81; RESP 17–97; TEMP 36.2–36.6; O2SAT 95–99; BMI 44.3
[2025-06-17 05:39] LABS: Basophils # (Auto) 0.1 Thou/mm3 (0.0-0.2); Basophils % (Auto) 1 % (0-2.5); Eosinophils # (Auto) 0.1 Thou/mm3 (0.0-0.5); Eosinophils % (Auto) 1 % (0-10); Hematocrit 28.7 % (36.0-46.0); Hemoglobin 9.3 g/dL (12.0-16.0); Immature Granulocytes Auto 0.07 Thou/mm3 (0.00-0.00); Lymphocytes # (Auto) 2.4 Thou/mm3 (1.0-4.8); Lymphocytes % (Auto) 23 % (10-50); Mean Corpuscular HGB Conc 32.4 g/dl (31.0-37.0); Mean Corpuscular Hemoglobin 27.9 pg (25.0-35.0); Mean Corpuscular Volume 86 fL (80-100); Monocytes # (Auto) 0.7 Thou/mm3 (0.0-0.8); Monocytes % (Auto) 7 % (0-12); Neutrophils # (Auto) 7.1 Thou/mm3 (1.8-7.7); Neutrophils % (Auto) 68 % (37-80); Nucleated Red Blood Cell # 0.00 Thou/mm3 (0.00-0.00); Nucleated Red Blood Cell % 0 /100 WBC (0); Platelet Count 397 Thou/mm3 (140-440); RDW Standard Deviation 42.3 fL (36.4-46.3); Red Blood Count 3.33 Miln/mm3 (4.00-5.20); White Blood Count 10.5 Thou/mm3 (3.6-11.0)
[2025-06-17 06:11] LABS: Alanine Aminotransferase 51 U/L (10-49); Albumin, Serum 3.8 gm/dL (3.5-5.0); Albumin/Globulin Ratio 1.4 (1.2-2.2); Alkaline Phosphatase 154 U/L (46-116); Anion Gap 10 (7-16); Aspartate Amino Transferase 44 U/L (0-34); BUN/Creatinine Ratio 25 Ratio (12-20); Bilirubin,Total 0.3 mg/dL (0.3-1.2); Blood Urea Nitrogen 20 mg/dL (9-23); Calcium 9.0 mg/dL (8.3-10.6); Calcium (Corrected) 9.2 mg/dL (8.5-10.1); Carbon Dioxide 26.2 mMol/L (20.0-31.0); Chloride 105 mMol/L (98-107); Creatinine (Component) 0.8 mg/dL (0.6-1.3); Estimated Creatinine Clearance 112.0 mL/min (>60); Globulin 2.8 gm/dL (2.3-3.5); Glucose 125 mg/dL (74-106); Magnesium 1.8 mg/dL (1.6-2.6); Osmolality,Calculated 284 (275-295); Phosphorous 3.2 mg/dL (2.4-5.1); Potassium 4.2 mMol/L (3.4-5.1); Sodium 141 mMol/L (136-145); Total Protein 6.6 gm/dL (5.7-8.2); eGFR > 60 See Note
[2025-06-17] MEDS: HYDROcodone/APAP 5/325 TABLET 1 TAB PO ×3 (06:51→19:38)
[2025-06-17] MEDS: ENOXAPARIN SOD INJ 40 MG/0.4 ML SYRINGE SC (08:29)
[2025-06-17 10:02] LABS: Vancomycin,Trough 21.1 mcg/mL (5.0-10.0)
[2025-06-17] MEDS: Vancomycin Inj 1,500 MG in SODIUM CHLORIDE 0.9% 500 ML 500 ML 120 MG IV ×2 (11:22→21:44)
[2025-06-17] MEDS: GABAPENTIN 100 MG CAPSULE 200 MG PO ×2 (13:20→20:48)
--- NOTE | 2025-06-17 15:42 | ESPR_ITS ---
<Statement entered by Gracy Parsons MD - 06/17/25 15:43> Patient was seen and examined at bedside. Patient reported that overnight she was having some twitching in her foot however she denied any tenderness, discoloration, or paralysis. Patient currently pending PICC line placement and IV antibiotics till 11 July 2025 as per ID recommendations. Currently he has Staphylococcus aureus that is sensitive to ceftriaxone. Repeat arthrocentesis fluid culture also growing GPC preliminary report evidence showed similar species will discuss with ID specialist Dr Lloyd of recurrent discharge the patient on ceftriaxone instead of vancomycin as it GPC sensitive to ceftriaxone. - Patient's plan and care discussed with my attending, Dr. Neal Parsons MD Internal Medicine PGY-3 Documentation for date of: 06/17/25 Subjective Subjective Interval history: Ms. Whitaker reports RL leg pain overnight that is generalized and dull s/p I&D. She does not endorse any weakness nor paresthesias on exam. Pt. started on gabapentin with further evaluation pending. Currently awaiting PICC line placement for a prolonged course of IVABx and pending final results/sensitivities of cultures. Exam Vital Signs Temp Pulse Resp BP Pulse Ox O2 Del Method O2 Flow Rate 97.9 F 72 17 114/65 95 Room Air 4 06/17/25 12:00 06/17/25 12:00 06/17/25 12:00 06/17/25 12:00 06/17/25 12:00 06/17/25 12:06/15/25 16:23 Narrative Exam General: alert and oriented to self/place/year, no acute distress, able to speak full sentences HEENT: NC/AT, mucous membranes moist, bilateral sclera anicteric Cardiovascular: regular rate and rhythm, S1/S2 present, no murmurs appreciated Pulmonary: clear to auscultation bilaterally, no rales/rhonchi/wheezes Abdominal: soft, nontender, present bowel sounds Musculoskeletal: no peripheral edema. R leg in surgical boot without noted purulence/swelling. Skin: Warm, well-perfused Objective Labs 06/17/25 05:00 06/17/25 05:00 Labs: Laboratory Results - last 24 hr 06/17/25 06/17/25 05:00 09:37 WBC 10.5 RBC 3.33 L Hgb 9.3 L Hct 28.7 L MCV 86 MCH 27.9 MCHC 32.4 RDW Std Deviation 42.3 Plt Count 397 Neut % (Auto) 68 Lymph % (Auto) 23 [place] % (Auto) 7 Eos % (Auto) 1 Baso % (Auto) 1 Neut # (Auto) 7.1 Lymph # (Auto) 2.4 [place] # (Auto) 0.7 Eos # (Auto) 0.1 Baso # (Auto) 0.1 Immature Gran # (Auto) 0.07 H Absolute Nucleated RBC 0.00 Immature Gran % 1 H Nucleated RBC % 0 Sodium 141 Potassium 4.2 Chloride 105 Carbon Dioxide 26.2 Anion Gap 10 BUN 20 Creatinine 0.8 Estim Creat Clear Calc 112.0 eGFR > 60 BUN/Creatinine Ratio 25 H Glucose 125 H D Calculated Osmolality 284 Calcium 9.0 Corrected Calcium 9.2 Phosphorus 3.2 Magnesium 1.8 Total Bilirubin 0.3 AST 44 H ALT 51 H Alkaline Phosphatase 154 H D Total Protein 6.6 Albumin 3.8 D Globulin 2.8 Albumin/Globulin Ratio 1.4 Vancomycin Trough 21.1 H* Quality Measures Quality Measures VTE prophylaxis Assessment & Plan Assessment Current Active Medications: Generic Name Dose Route Start Last Admin Trade Name Freq PRN Reason Stop Dose Admin Acetaminophen 650 mg 06/12/25 22:32 06/15/25 20:37 Acetaminophen 325 Mg Tablet PO 07/12/25 22:31 650 mg Q6H PRN Administration Fever >101.5 or pain 1-3 Hydrocodone Bitart/Acetaminophen 1 tab 06/13/25 04:29 06/17/25 13:20 Hydrocodone/Apap 5/325 Tablet PO 06/18/25 04:28 1 tab Q6HR PRN Administration PAIN SCALE 4-10(Mod-Sev Albuterol/Ipratropium 3 ml 06/15/25 15:27 Albuterol/Ipratropium (Duoneb) Rt Joceline 3 Ml Nebu INH 07/15/25 15:26 Q4HRRT PRN SHORTNESS OF BREATH Atorvastatin Calcium 5 mg 06/13/25 21:00 06/16/25 21:14 Atorvastatin Calcium 10 Mg Tablet PO 07/13/25 20:59 5 mg HS ELIAS Administration Dextrose 25 ml 06/13/25 01:41 Dextrose 50%-Water Inj 50 Ml Syringe IV 07/13/25 01:40 Q15MIN PRN BG 50-70 responsive npo pt Dextrose 50 ml 06/13/25 01:41 Dextrose 50%-Water Inj 50 Ml Syringe IV 07/13/25 01:40 Q15MIN PRN BG <50 OR BG <70 & pt unresponsive Enoxaparin Sodium 40 mg 06/13/25 09:00 06/17/25 08:29 Enoxaparin Sod Inj 40 Mg/0.4 Ml Syringe SC 06/27/25 08:59 40 mg QDAY ELIAS Administration Gabapentin 200 mg 06/17/25 13:00 06/17/25 13:20 Gabapentin 100 Mg Capsule PO 07/17/25 12:59 200 mg BID ELIAS Administration Glucagon 1 mg 06/13/25 01:41 Glucagon Inj 1 Mg Vial IM Q15MIN PRN BG <70, and no IV access Vancomycin HCl 1,500 mg/ 500 mls @ 120 mls/hr 06/17/25 10:30 06/17/25 11:22 Sodium Chloride IV 06/23/25 09:59 120 mls/hr BID@1000,2200 [facility] Administration Protocol Insulin Human Lispro 0 unit 06/13/25 20:00 06/17/25 11:28 Insulin Lispro (Admelog) 1 Unit/0.01 Ml Unit SC 07/13/25 19:59 Not Given ACHS [facility] Protocol Lisinopril 10 mg 06/13/25 09:00 06/17/25 08:30 Lisinopril 2.5 Mg Tablet PO 07/13/25 08:59 10 mg QDAY ELIAS Administration Pharmacy Consult 1 each 06/13/25 09:00 Vancomycin Pharmacy To Dose 1 Each Each IV 07/13/25 08:59 QDAY PRN CONSULT Sennosides 1 tab 06/13/25 00:49 Senna/Docusate Sod 1 Tab Tablet PO 07/13/25 00:48 QDAY PRN CONSTIPATION Protocol Plan This patient is a 49-year-old female with a history of [id number] T2DM, hypertension, hyperlipidemia, arthritis, and GERD who presented to [facility] ED on 06/12 for right ankle pain and swelling. Patient was admitted for osteomyelitis and septic arthritis rule out; s/p I&D right ankle 06/15. #Septic Arthritis of right ankle #Osteomyelitis of right ankle #Staph aureus bacteremia #S/p Incision and Drainage 06/15 DDx: Osteomyelitis, septic arthritis, gout flare, pseudogout flare, charcot ankle, AVN Patient noted to have right ankle swelling that was present since November 2024 and has since increased in size and worsened and pain over time. Cool compress with ice initially held, but no longer provides any relief. Initial imaging negative for any acute processes, however now patient endorses fever at home and pain has progressed to where she is unable to bear weight on her right leg. Patient does endorse a history of gout, but is not sure what led to this diagnosis and she does not take any medication for management of this condition. Patient has history of contact cast, making charcot ankle a differential. Patient has used steroids in the past for asthma, possible AVN. Diagnostics: WBC on admission 15.8 with ESR of 53 and CRP of 25.1; Uric acid wnl Blood culture prelim reported to be GPC with staph appearance. Synovial Fluid grew S.aureus Discontinued Zosyn (06/12-06/16) MRI R ankle showed significant erosive arthritic change involving the tibiotalar joint including 8 mm cortical erosion dorsal anterior surface of the talus. S/P Right ankle I&D 06/15. Treatment: Orthopedic surgery consulted, appreciate recommendations I.D. consulted, appreciate recommendations Vancomycin daily (06/12-) [place] 5/325 1 tablet every 6 hours as needed for pain Following up final results from 06/14 blood cultures for PICC line abx outpatient (Vancomycin) -F/up w/ PT recommendations/therapy #Right Foot Pain Neuropathic > [facility] -Gabapentin 200mg BID #Non-insulin dependent type 2 diabetes mellitus Patient noted to have a history of T2DM for which she takes metformin at home. Patient notes that she keeps her hemoglobin A1c at around 6%, however no recent hemoglobin A1c on file, previous 1 was from 2017. Diagnostics: Hemoglobin A1c 6.7 (06/13/2025) Treatment: Sliding scale insulin Bedside glucose checks ACHS #Hypertension Patient endorses a history of hypertension and takes lisinopril at home. Possibly due to pain Treatment: -resumed home lisinopril 10 mg qday #Hyperlipidemia Patient endorses a history of hyperlipidemia and takes simvastatin at home. Diagnostics: Lipid panel wnl Treatment: -ordered simvastatin 10 mg q hs (non-formulary) #GERD Patient has a history of GERD and takes Protonix 40 mg daily for management of this. Treatment: Resumed home Protonix 40 mg daily #Leukocytosis Patient noted to have elevated WBC of 15.8 with left shift on presentation in the ED. Reactive secondary to patient's pain versus active infection with suspected osteomyelitis or septic arthritis. Treatment: Will continue to monitor with daily labs, continue treatment with antibiotics #Anemia, normocytic Patient noted to have hemoglobin of 11.5 with MCV in normal range on admission. Possibly anemia of chronic disease given months long swelling and pain of her right ankle. Hgb 9.3 today Treatment: Continue to monitor, transfuse if hemoglobin less than 7 Patient to follow-up outpatient Reason for Hospitalization: Osteomyelitis & septic arthritis s/p I&D, pending PICC line for IVABx DVT Prophylaxis: Lovenox 40 mg qd GI Prophylaxis: none Bowel: Senokot PRN Diet: Regular Lines: PIV Antibiotics: Vancomycin Code Status: FULL Attending Provider Attestation/Addendum Paty Cruz DO, attest that I was physically present for the brambila portions of the service and evaluated the patient with the resident and I reviewed and discussed the case with the resident and agree with the resident's findings and plans of care as documented above Patient seen and eval this a.m. She states that she had a lot of pain last night and was unable to sleep. She states that it feels as though her nerves are being shocked. However, Kamrar does help when she does receive it. Will start on gabapentin as well due to nerve pain. Blood cultures have been no growth to date x [address] PICC line on Thursday. Cultures obtained from surgery 2 days ago was positive for GPC, likely Staph aureus as previous cultures have shown.
[2025-06-17] MEDS: ATORVASTATIN CALCIUM 10 MG TABLET 5 MG PO (20:48)
[2025-06-17] MEDS: INSULIN LISPRO (AdmeLOG) 1 UNIT/0.01 ML UNIT SC (20:50)
[2025-06-18] VITALS (10 sets, daily range): BP systolic 111–136; BP diastolic 62–83; PULSE 72–101; RESP 16–96; TEMP 36.2–37.2; O2SAT 95–98; BMI 15.0
[2025-06-18] MEDS: HYDROcodone/APAP 5/325 TABLET 1 TAB PO ×3 (02:34→19:47)
[2025-06-18 06:00] LABS: Basophils # (Auto) 0.1 Thou/mm3 (0.0-0.2); Basophils % (Auto) 1 % (0-2.5); Eosinophils # (Auto) 0.2 Thou/mm3 (0.0-0.5); Eosinophils % (Auto) 2 % (0-10); Hematocrit 31.4 % (36.0-46.0); Hemoglobin 10.1 g/dL (12.0-16.0); Immature Granulocytes Auto 0.10 Thou/mm3 (0.00-0.00); Lymphocytes # (Auto) 2.5 Thou/mm3 (1.0-4.8); Lymphocytes % (Auto) 23 % (10-50); Mean Corpuscular HGB Conc 32.2 g/dl (31.0-37.0); Mean Corpuscular Hemoglobin 27.7 pg (25.0-35.0); Mean Corpuscular Volume 86 fL (80-100); Monocytes # (Auto) 0.9 Thou/mm3 (0.0-0.8); Monocytes % (Auto) 8 % (0-12); Neutrophils # (Auto) 7.3 Thou/mm3 (1.8-7.7); Neutrophils % (Auto) 66 % (37-80); Nucleated Red Blood Cell # 0.00 Thou/mm3 (0.00-0.00); Nucleated Red Blood Cell % 0 /100 WBC (0); Platelet Count 467 Thou/mm3 (140-440); RDW Standard Deviation 43.0 fL (36.4-46.3); Red Blood Count 3.65 Miln/mm3 (4.00-5.20); White Blood Count 11.2 Thou/mm3 (3.6-11.0)
[2025-06-18 06:42] LABS: Alanine Aminotransferase 45 U/L (10-49); Albumin, Serum 3.7 gm/dL (3.5-5.0); Albumin/Globulin Ratio 1.2 (1.2-2.2); Alkaline Phosphatase 147 U/L (46-116); Anion Gap 10 (7-16); Aspartate Amino Transferase 26 U/L (0-34); BUN/Creatinine Ratio 21 Ratio (12-20); Bilirubin,Total 0.3 mg/dL (0.3-1.2); Blood Urea Nitrogen 17 mg/dL (9-23); Calcium 9.2 mg/dL (8.3-10.6); Calcium (Corrected) 9.4 mg/dL (8.5-10.1); Carbon Dioxide 26.1 mMol/L (20.0-31.0); Chloride 103 mMol/L (98-107); Creatinine (Component) 0.8 mg/dL (0.6-1.3); Estimated Creatinine Clearance 110.1 mL/min (>60); Globulin 3.0 gm/dL (2.3-3.5); Glucose 123 mg/dL (74-106); Magnesium 1.6 mg/dL (1.6-2.6); Osmolality,Calculated 280 (275-295); Phosphorous 4.5 mg/dL (2.4-5.1); Potassium 4.2 mMol/L (3.4-5.1); Sodium 139 mMol/L (136-145); Total Protein 6.7 gm/dL (5.7-8.2); eGFR > 60 See Note
[2025-06-18] MEDS: GABAPENTIN 100 MG CAPSULE 200 MG PO ×2 (08:17→20:07)
[2025-06-18] MEDS: ENOXAPARIN SOD INJ 40 MG/0.4 ML SYRINGE SC (08:17)
[2025-06-18] MEDS: Vancomycin Inj 1,500 MG in SODIUM CHLORIDE 0.9% 500 ML 500 ML 120 MG IV ×2 (10:05→22:16)
--- NOTE | 2025-06-18 12:28 | ESPR_ITS ---
<Statement entered by Alexis Black MD - 06/18/25 14:19> No acute overnight events. Seen and examined at bedside and resting comfortably in bed. States that her pain is much better controlled today compared to yesterday and she was able to sleep. Vital signs are stable she has been afebrile and on room air. Slight increase in leukocytosis from 10.5 to 11.2. CHEM panel largely unremarkable. Repeat blood cultures from 07/04 negative and cultures from right ankle growing MSSA. Ordered PICC line to be placed tomorrow and will follow-up on ID recommendations. After PICC line placement patient can be discharged on IV antibiotics. ----- Note reviewed and agree with care plan as documented. Please refer to the note below for further details. Plan discussed with attending physician Dr. Neal Black MD PGY-2 Internal Medicine Documentation for date of: 06/18/25 Subjective Subjective Interval history: No acute events night. Patient this morning is saying her foot pain overall has improved and is greatly relieved with the added gabapentin. Patient is planned to get picc line tomorrow for antibiotics outpatient. Patient's vitals are stable, making urine and having good bowel movements. Exam Vital Signs Temp Pulse Resp BP Pulse Ox O2 Del Method O2 Flow Rate 97.9 F 83 17 121/83 96 Room Air 4 06/18/25 07:57 06/18/25 09:31 06/18/25 09:31 06/18/25 08:18 06/18/25 09:31 06/18/25 07:57 06/15/25 16:23 Narrative Exam General: No acute distress; A&Ox3 Skin: R ankle erythema decreased. No other rashes or skin breakages noted HENT: NCAT, EOMI/PERRL, not icteric. External ears normal. No rhinorrhea. Moist mucous membranes Cardiovascular: Regular rate and rhythm, no murmur, +S1/S2. Respiratory: Lungs CTAB GI: Soft, nontender, non-distended. No guarding or rebound tenderness. : No suprapubic tenderness. No flank tenderness bilaterally. Extremities: R foot swelling and erythema decreased from yesterday; R ankle wrapped and in cast, clean and dry. no cyanosis, no clubbing. Extremity pulses present Neuro: Grossly nonfocal. Moving all 4 extremities. CN not formally tested but appear grossly intact. Psychiatric: Cooperative, appropriate affect. Objective Labs 06/18/25 04:52 06/18/25 04:52 Labs: Laboratory Results - last 24 hr 06/18/25 04:52 WBC 11.2 H RBC 3.65 L Hgb 10.1 L Hct 31.4 L MCV 86 MCH 27.7 MCHC 32.2 RDW Std Deviation 43.0 Plt Count 467 H D Neut % (Auto) 66 Lymph % (Auto) 23 [place] % (Auto) 8 Eos % (Auto) 2 Baso % (Auto) 1 Neut # (Auto) 7.3 Lymph # (Auto) 2.5 Ness # (Auto) 0.9 H Eos # (Auto) 0.2 Baso # (Auto) 0.1 Immature Gran # (Auto) 0.10 H Absolute Nucleated RBC 0.00 Immature Gran % 1 H Nucleated RBC % 0 Sodium 139 Potassium 4.2 Chloride 103 Carbon Dioxide 26.1 Anion Gap 10 BUN 17 Creatinine 0.8 Estim Creat Clear Calc 110.1 eGFR > 60 BUN/Creatinine Ratio 21 H Glucose 123 H Calculated Osmolality 280 Calcium 9.2 Corrected Calcium 9.4 Phosphorus 4.5 Magnesium 1.6 Total Bilirubin 0.3 AST 26 ALT 45 Alkaline Phosphatase 147 H Total Protein 6.7 Albumin 3.7 Globulin 3.0 Albumin/Globulin Ratio 1.2 Quality Measures Quality Measures VTE prophylaxis Assessment & Plan Assessment Current Active Medications: Generic Name Dose Route Start Last Admin Trade Name Freq PRN Reason Stop Dose Admin Acetaminophen 650 mg 06/12/25 22:32 06/15/25 20:37 Acetaminophen 325 Mg Tablet PO 07/12/25 22:31 650 mg Q6H PRN Administration Fever >101.5 or pain 1-3 Hydrocodone Bitart/Acetaminophen 1 tab 06/18/25 09:53 06/18/25 10:05 Hydrocodone/Apap 5/325 Tablet PO 06/23/25 09:52 1 tab Q6HR PRN Administration PAIN SCALE 4-10(Mod-Sev Albuterol/Ipratropium 3 ml 06/15/25 15:27 Albuterol/Ipratropium (Duoneb) Rt Joceline 3 Ml Nebu INH 07/15/25 15:26 Q4HRRT PRN SHORTNESS OF BREATH Atorvastatin Calcium 5 mg 06/13/25 21:00 06/17/25 20:48 Atorvastatin Calcium 10 Mg Tablet PO 07/13/25 20:59 5 mg HS ELIAS Administration Dextrose 25 ml 06/13/25 01:41 Dextrose 50%-Water Inj 50 Ml Syringe IV 07/13/25 01:40 Q15MIN PRN BG 50-70 responsive npo pt Dextrose 50 ml 06/13/25 01:41 Dextrose 50%-Water Inj 50 Ml Syringe IV 07/13/25 01:40 Q15MIN PRN BG <50 OR BG <70 & pt unresponsive Enoxaparin Sodium 40 mg 06/13/25 09:00 06/18/25 08:17 Enoxaparin Sod Inj 40 Mg/0.4 Ml Syringe SC 06/27/25 08:59 40 mg QDAY ELIAS Administration Gabapentin 200 mg 06/17/25 13:00 06/18/25 08:17 Gabapentin 100 Mg Capsule PO 07/17/25 12:59 200 mg BID ELIAS Administration Glucagon 1 mg 06/13/25 01:41 Glucagon Inj 1 Mg Vial IM Q15MIN PRN BG <70, and no IV access Vancomycin HCl 1,500 mg/ 500 mls @ 120 mls/hr 06/17/25 10:30 06/18/25 10:05 Sodium Chloride IV 06/23/25 09:59 120 mls/hr BID@1000,2200 ELIAS Administration Protocol Insulin Human Lispro 0 unit 06/13/25 20:00 06/18/25 11:52 Insulin Lispro (Admelog) 1 Unit/0.01 Ml Unit SC 07/13/25 19:59 Not Given ACHS ELIAS Protocol Lisinopril 10 mg 06/13/25 09:00 06/18/25 08:18 Lisinopril 2.5 Mg Tablet PO 07/13/25 08:59 10 mg QDAY ELIAS Administration Pharmacy Consult 1 each 06/13/25 09:00 Vancomycin Pharmacy To Dose 1 Each Each IV 07/13/25 08:59 QDAY PRN CONSULT Sennosides 1 tab 06/13/25 00:49 Senna/Docusate Sod 1 Tab Tablet PO 07/13/25 00:48 QDAY PRN CONSTIPATION Protocol Plan This patient is a 49-year-old female with a history of [id number] T2DM, hypertension, hyperlipidemia, arthritis, and GERD who presented to [facility] ED on 06/12 for right ankle pain and swelling. Patient was admitted for osteomyelitis and septic arthritis rule out; s/p I&D right ankle 06/15. #Septic Arthritis of right ankle #Osteomyelitis of right ankle #Staph aureus bacteremia DDx: Osteomyelitis, septic arthritis, gout flare, pseudogout flare, charcot ankle, AVN Patient noted to have right ankle swelling that was present since November 2024 and has since increased in size and worsened and pain over time. Cool compress with ice initially held, but no longer provides any relief. Initial imaging negative for any acute processes, however now patient endorses fever at home and pain has progressed to where she is unable to bear weight on her right leg. Patient does endorse a history of gout, but is not sure what led to this diagnosis and she does not take any medication for management of this condition. Patient has history of contact cast, making charcot ankle a differential. Patient has used steroids in the past for asthma, possible AVN. Diagnostics: WBC on admission 15.8 with ESR of 53 and CRP of 25.1; Uric acid wnl Blood culture prelim reported to be GPC with staph appearance. Synovial Fluid grew S.aureus Discontinued Zosyn (06/12-06/16) MRI R ankle showed significant erosive arthritic change involving the tibiotalar joint including 8 mm cortical erosion dorsal anterior surface of the talus. S/P Right ankle I&D 06/15. Treatment: Orthopedic surgery consulted, appreciate recommendations I.D. consulted, appreciate recommendations Vancomycin daily (06/12-) Foster 5/325 1 tablet every 6 hours as needed for pain Following up final results from 06/14 blood cultures for PICC line abx outpatient (Vancomycin) #Non-insulin dependent type 2 diabetes mellitus Patient noted to have a history of T2DM for which she takes metformin at home. Patient notes that she keeps her hemoglobin A1c at around 6%, however no recent hemoglobin A1c on file, previous 1 was from 2017. Diagnostics: Hemoglobin A1c 6.7 (06/13/2025) Treatment: Sliding scale insulin Bedside glucose checks ACHS #Hypertension Patient endorses a history of hypertension and takes lisinopril at home. Possibly due to pain Treatment: -resumed home lisinopril 10 mg qday #Hyperlipidemia Patient endorses a history of hyperlipidemia and takes simvastatin at home. Diagnostics: Lipid panel wnl Treatment: -ordered simvastatin 10 mg q hs (non-formulary) #GERD Patient has a history of GERD and takes Protonix 40 mg daily for management of this. Treatment: Resumed home Protonix 40 mg daily #Leukocytosis Patient noted to have elevated WBC of 15.8 with left shift on presentation in the ED. Reactive secondary to patient's pain versus active infection with suspected osteomyelitis or septic arthritis. Treatment: Will continue to monitor with daily labs, continue treatment with antibiotics #Anemia, normocytic Patient noted to have hemoglobin of 11.5 with MCV in normal range on admission. Possibly anemia of chronic disease given months long swelling and pain of her right ankle. Treatment: Continue to monitor, transfuse if hemoglobin less than 7 Patient to follow-up outpatient Reason for Hospitalization: Osteomyelitis & septic arthritis DVT Prophylaxis: Lovenox 40 mg qd GI Prophylaxis: none Bowel: Senokot PRN Diet: Regular Lines: PIV Antibiotics: Vancomycin Code Status: FULL Patient plan of care was discussed with the attending physician, Dr. De Jesus & senior resident Dr. Freddie Aldridge MD PGY-1 Attending Provider Attestation/Addendum I, Paty De Jesus DO, attest that I was physically present for the brambila portions of the service and evaluated the patient with the resident and I reviewed and discussed the case with the resident and agree with the resident's findings and plans of care as documented above Patient seen and evaluated this AM. Patient states that her nerve pain has been much improved with gabapentin and was able to rest overnight. Plan for PICC line placement tomorrow and arrange for home IV vancomycin.
--- NOTE | 2025-06-18 17:13 | PC.SS ---
Rounding note: Patient will need H.H. and PICC line, on IV abx until 07/11/25.
[2025-06-18] MEDS: ATORVASTATIN CALCIUM 10 MG TABLET 5 MG PO (20:07)
[2025-06-18] MEDS: INSULIN LISPRO (AdmeLOG) 1 UNIT/0.01 ML UNIT SC (20:10)
[2025-06-18 21:32] LABS: Vancomycin,Trough 20.0 mcg/mL (5.0-10.0)
--- NOTE | 2025-06-18 22:06 | PC.NURSE ---
called pharmacist re vanco trough level result- May give vanco iv tonight as ordered per pharmacist.
[2025-06-19] VITALS (8 sets, daily range): BP systolic 106–126; BP diastolic 64–86; PULSE 74–90; RESP 16–95; TEMP 36.2–37.2; O2SAT 95–99
[2025-06-19] MEDS: HYDROcodone/APAP 5/325 TABLET 1 TAB PO ×4 (03:14→22:27)
[2025-06-19 06:13] LABS: Basophils # (Auto) 0.1 Thou/mm3 (0.0-0.2); Basophils % (Auto) 1 % (0-2.5); Eosinophils # (Auto) 0.3 Thou/mm3 (0.0-0.5); Eosinophils % (Auto) 2 % (0-10); Hematocrit 32.3 % (36.0-46.0); Hemoglobin 10.4 g/dL (12.0-16.0); Immature Granulocytes Auto 0.19 Thou/mm3 (0.00-0.00); Lymphocytes # (Auto) 2.4 Thou/mm3 (1.0-4.8); Lymphocytes % (Auto) 20 % (10-50); Mean Corpuscular HGB Conc 32.2 g/dl (31.0-37.0); Mean Corpuscular Hemoglobin 27.6 pg (25.0-35.0); Mean Corpuscular Volume 86 fL (80-100); Monocytes # (Auto) 0.9 Thou/mm3 (0.0-0.8); Monocytes % (Auto) 8 % (0-12); Neutrophils # (Auto) 8.0 Thou/mm3 (1.8-7.7); Neutrophils % (Auto) 68 % (37-80); Nucleated Red Blood Cell # 0.00 Thou/mm3 (0.00-0.00); Nucleated Red Blood Cell % 0 /100 WBC (0); Platelet Count 508 Thou/mm3 (140-440); RDW Standard Deviation 43.2 fL (36.4-46.3); Red Blood Count 3.77 Miln/mm3 (4.00-5.20); White Blood Count 11.8 Thou/mm3 (3.6-11.0)
[2025-06-19 06:46] LABS: Alanine Aminotransferase 39 U/L (10-49); Albumin, Serum 3.9 gm/dL (3.5-5.0); Albumin/Globulin Ratio 1.3 (1.2-2.2); Alkaline Phosphatase 138 U/L (46-116); Anion Gap 9 (7-16); Aspartate Amino Transferase 18 U/L (0-34); BUN/Creatinine Ratio 19 Ratio (12-20); Bilirubin,Total 0.3 mg/dL (0.3-1.2); Blood Urea Nitrogen 15 mg/dL (9-23); Calcium 9.5 mg/dL (8.3-10.6); Calcium (Corrected) 9.6 mg/dL (8.5-10.1); Carbon Dioxide 26.6 mMol/L (20.0-31.0); Chloride 103 mMol/L (98-107); Creatinine (Component) 0.8 mg/dL (0.6-1.3); Estimated Creatinine Clearance 110.1 mL/min (>60); Globulin 2.9 gm/dL (2.3-3.5); Glucose 131 mg/dL (74-106); Magnesium 1.6 mg/dL (1.6-2.6); Osmolality,Calculated 280 (275-295); Phosphorous 3.8 mg/dL (2.4-5.1); Potassium 4.4 mMol/L (3.4-5.1); Sodium 139 mMol/L (136-145); Total Protein 6.8 gm/dL (5.7-8.2); eGFR > 60 See Note
--- NOTE | 2025-06-19 07:53 | ESCONSULT_ITS ---
RE: BRI UREÑA : 1975 DATE OF CONSULTATION: 06/16/2025 REFERRING: hospitalist team REASON FOR CONSULTATION: Septic arthritis of the right ankle with sepsis and bacteremia, diabetic. HISTORY OF PRESENT ILLNESS: The patient is a diabetic but does not take any treatment for it. Apparently, she was diagnosed as borderline diabetic at age 23 and then recently was found to be frankly diabetic. She has had no pregnancies and no deliveries. PAST SURGICAL HISTORY: Includes prior cholecystectomy, prior appendectomy, prior bilateral eye surgery, prior left arthroscopy of the knee, prior tonsillectomy, possibly other surgeries. ALLERGIES: POSSIBLY TO LATEX. IMMUNIZATIONS: Tetanus. Last tetanus was about 2 years ago. She does not take a flu shot or has not had a COVID vaccine or pneumococcal vaccination. FAMILY HISTORY: Positive for diabetes in her mother, coronary disease in her mother, and hypertension in her mother. SOCIAL HISTORY: She lives alone. 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 She is not ambulatory and she is able to move her toes. She has hyperlipidemia based on her medications and hypertension based on her medications as well which she did not mention. ASSESSMENT: Sepsis with septic arthritis of the right ankle with a marginally sensitive strain of Staphylococcus wtih an adilene that is recorded and similarly marginal to vancomycin. We could get levels of vancomycin more easily so I will probably stay with that. RECOMMENDATIONS: Repeat blood cultures remain pending. If they stay negative which they probably should, then she can be treated through the end of the month. I will see her again on a p.r.n. basis, probably check it on Thursday if she remains. If she goes home, please arrange for outpatient IV treatment with vancomycin, pharmacy to dose. I will check weekly CBC, renal panel, and sed rate. I will see her again on Thursday if she remains. Please arrange outpt treatment as well. I cannot see her in follow up as she needs to see the surgeons in follow up and make any arrangements with them. DT: 10:00:46 TT: 12:50:00 Ref: [id number] - TID: [id number] MTDD
[2025-06-19] MEDS: GABAPENTIN 100 MG CAPSULE 200 MG PO ×2 (08:50→21:11)
--- NOTE | 2025-06-19 09:15 | PC.SS ---
SS inquired with GAIL Chua RN about HH orders for IV ABX, per Toma no orders have been put in. SS contacted Dr. Black for orders as they wish to DC pt today.
--- NOTE | 2025-06-19 09:24 | PD.IDPROG ---
Subjective Subjective Interval history: hiv and hep c neg. no change in recs. no new data noted. Exam Vital Signs Temp Pulse Resp BP Pulse Ox O2 Del Method O2 Flow Rate 97.7 F 90 18 124/64 96 Room Air 4 06/19/25 08:00 06/19/25 08:50 06/19/25 08:00 06/19/25 08:50 06/19/25 08:00 06/19/25 08:00 06/15/25 16:23 Narrative Exam limited eval today Objective - Internal Medicine Labs 06/19/25 05:25 06/19/25 05:25 Labs: Laboratory Results - last 24 hr 06/18/25 06/19/25 20:57 05:25 WBC 11.8 H RBC 3.77 L Hgb 10.4 L Hct 32.3 L MCV 86 MCH 27.6 MCHC 32.2 RDW Std Deviation 43.2 Plt Count 508 H D Neut % (Auto) 68 Lymph % (Auto) 20 [place] % (Auto) 8 Eos % (Auto) 2 Baso % (Auto) 1 Neut # (Auto) 8.0 H Lymph # (Auto) 2.4 [place] # (Auto) 0.9 H Eos # (Auto) 0.3 Baso # (Auto) 0.1 Immature Gran # (Auto) 0.19 H Absolute Nucleated RBC 0.00 Immature Gran % 2 H Nucleated RBC % 0 Sodium 139 Potassium 4.4 Chloride 103 Carbon Dioxide 26.6 Anion Gap 9 BUN 15 Creatinine 0.8 Estim Creat Clear Calc 110.1 eGFR > 60 BUN/Creatinine Ratio 19 Glucose 131 H Calculated Osmolality 280 Calcium 9.5 Corrected Calcium 9.6 Phosphorus 3.8 Magnesium 1.6 Total Bilirubin 0.3 AST 18 ALT 39 Alkaline Phosphatase 138 H Total Protein 6.8 Albumin 3.9 Globulin 2.9 Albumin/Globulin Ratio 1.3 Vancomycin Trough 20.0 H Assessment & Plan A&P Narrative sepsis mssa but with marginal s to ox at adilene 1 with adilene 1 to vanco as well but levels easier with vanco on vanco since 06/13. htn hld suggest vanco thru 07/11 . if you use naf or ox. that is ok but the germ is not that s so maximize doses. she is advised that she may need to stay the weekend to get rx approved for home will see again prn. Time Spent With Patient Time: Total time spent is greater than 50% in coordination of care (as documented) at patient's floor/unit and/or counseling patient:
[2025-06-19] MEDS: Vancomycin Inj 1,500 MG in SODIUM CHLORIDE 0.9% 500 ML 500 ML 120 MG IV ×2 (09:51→21:09)
--- NOTE | 2025-06-19 10:06 | PD.IDPROG ---
Subjective Subjective Interval history: call if echo positive. bc neg 06/16, so rx for septic arthritis in ankle. so 28d from first neg bc. Exam Vital Signs Temp Pulse Resp BP Pulse Ox O2 Del Method O2 Flow Rate 97.7 F 90 18 124/64 96 Room Air 4 06/19/25 08:00 06/19/25 08:50 06/19/25 08:00 06/19/25 08:50 06/19/25 08:00 06/19/25 08:00 06/15/25 16:23 Narrative Exam see prior note for details. Objective - Internal Medicine Labs 06/19/25 05:25 06/19/25 05:25 Labs: Laboratory Results - last 24 hr 06/18/25 06/19/25 20:57 05:25 WBC 11.8 H RBC 3.77 L Hgb 10.4 L Hct 32.3 L MCV 86 MCH 27.6 MCHC 32.2 RDW Std Deviation 43.2 Plt Count 508 H D Neut % (Auto) 68 Lymph % (Auto) 20 [place] % (Auto) 8 Eos % (Auto) 2 Baso % (Auto) 1 Neut # (Auto) 8.0 H Lymph # (Auto) 2.4 [place] # (Auto) 0.9 H Eos # (Auto) 0.3 Baso # (Auto) 0.1 Immature Gran # (Auto) 0.19 H Absolute Nucleated RBC 0.00 Immature Gran % 2 H Nucleated RBC % 0 Sodium 139 Potassium 4.4 Chloride 103 Carbon Dioxide 26.6 Anion Gap 9 BUN 15 Creatinine 0.8 Estim Creat Clear Calc 110.1 eGFR > 60 BUN/Creatinine Ratio 19 Glucose 131 H Calculated Osmolality 280 Calcium 9.5 Corrected Calcium 9.6 Phosphorus 3.8 Magnesium 1.6 Total Bilirubin 0.3 AST 18 ALT 39 Alkaline Phosphatase 138 H Total Protein 6.8 Albumin 3.9 Globulin 2.9 Albumin/Globulin Ratio 1.3 Vancomycin Trough 20.0 H Assessment & Plan A&P Narrative sepsis mssa but with marginal s to ox at adilene 1 with adilene 1 to vanco as well but levels easier with vanco on vanco since 06/13. bc neg 06/16 htn hld suggest vanco thru 07/11 . if you use naf or ox. that is ok but the germ is not that s so maximize doses. she was advised that she may need to stay the weekend to get rx approved for home will see again prn. Time Spent With Patient Time: Total time spent is greater than 50% in coordination of care (as documented) at patient's floor/unit and/or counseling patient:
--- NOTE | 2025-06-19 10:24 | PC.CC ---
Addendum entered by Bertrand Joiner RN 06/19/25 16:43: [facility] accepted, soc pending dc date. PICC line still pending Addendum entered by Bertrand Joiner RN 06/19/25 16:00: [facility] accepted. waiting for HH agency to accept Original Note: HH referral sent to infusion pharmacy and hh agencies, waiting for response
--- NOTE | 2025-06-19 11:27 | PD.RESDS ---
Planned Discharge Date 06/19/25 DS: Providers Provider Date of admission: 06/12/25 22:33 Primary care physician: Physician No Primary/Family Admitting Provider: Oracio Wesley MD Attending Provider on Admission: Paty De Jesus DO Consults: 06/12/25 21:54 Consult to Orthopedic Stat Comment: Septic joint, AVM Consulting Provider: Louie Miller 06/14/25 17:45 Consult to Infectious Diseases Routine Comment: Septic Artheritis of the Rt ankle Consulting Provider: Bc Lloyd 06/17/25 12:38 Referral Physical Therapy Routine Comment: Physician Instructions: Instructions: assist and evaluation of ambulation Attending Provider on DC: Paty De Jesus DO Discharging Provider: Paty De Jesus DO DS: Diagnosis Problem List Completed Was Problem List Reviewed/Reconciled?: Yes Hospital Course Hospital Course Hospital course: No acute events night. Patient this morning is saying her foot pain overall has improved and is greatly relieved with the added gabapentin. Patient is planned to get picc line tomorrow for antibiotics outpatient. Patient's vitals are stable, making urine and having good bowel movements. Time Spent with Patient Time attestation: Total time spent providing and/or coordinating discharge services: Home Health Home Health Referral Orders: 06/19/25 09:25 Home Health Referral Routine Reason For Exam: septic arthritis of right ankle Home-Bound The patient must either because of illness or injury, need the aid of supportive devices such as crutches, canes, wheelchairs, and walkers; the use of special transportation; or the assistance of another person in order to leave their place of residence; OR have a condition such that leaving his or her home is medically contraindicated. In addition, the patient also meets the following criteria: patient is normally unable to leave the home and leaving home requires considerable taxing effort. Addendum to Home Health Certification Practitioner's Certification: I certify that the patient has been under my care in the hospital and the care of attending physician (see below). We had a slwy-[id number] encounter on (see date below). My clinical findings indicate that the patient is home bound per the above criteria and the Home Health Services noted in these orders are medically necessary. The primary reason for the mauc-ly-oguk encounter is related to the fact that the patient requires home health services. Date Certifying Abeq-oe-Dezt Physician Encounter: 06/12/25 Physician's Name who will Assume Oversight for Services: Paris Oropeza Physician's Phone No.who will Assume Oversight for Service: [employer]AVING [employer]EMAN - Community Resources: No PT to Evaluate: Yes PT to evaluate and provide a treatmnet plan to increase patient's mobility and strength. Wound Care: Yes Home Health RN - Wound Care Order: as per wound care nurse IV Therapy: Yes: weekly cbc, renal panel, ESR, vancomycin trough for dosing IV Medication: Vancomcyin (pharmacy to dose) IV Dose: 1500 IV Frequency: BID IV Stop Date: 07/11/25 Discontinue PICC Line Once Treatment Complete: Yes RN Safety Evaluation: Yes RN to evaluate and create a plan of care that will produce positive outcomes. Palliative Treatment: No Palliative treatment and evaluate the need for hospice. Home Health Aide - Personal Care: Yes Home Health Aide to assist with any ADL's. Exam Vital Signs Temp Pulse Resp BP Pulse Ox O2 Del Method O2 Flow Rate 97.7 F 90 18 124/64 95 Room Air 4 06/19/25 08:00 06/19/25 08:50 06/19/25 08:15 06/19/25 08:50 06/19/25 08:15 06/19/25 08:00 06/15/25 16:23 Discharge Plan Prescriptions/Referrals Prescriptions/Med Rec: No Action metformin [Glucophage] 500 MG tablet 500 mg PO BID Qty: 0 Pantoprazole Sodium 40 MG TABLET.DR 40 mg PO DAILY Qty: 0 ibuprofen 800 mg Tablet 800 mg PO TID hydrocodone-acetaminophen 5-325 mg tablet 1 tab PO Q12H PRN (Reason: pain) Patient Comments: TAKE 1 TABLET BY MOUTH EVERY 6 HOURS NEEDED FOR 30 DAYS phenazopyridine 100 mg tablet 100 mg PO Q8H Patient Comments: TAKE 1 TABLET BY MOUTH 3 TIMES A DAY simvastatin 10 mg tablet 10 mg PO HS Patient Comments: TAKE 1 TABLET BY MOUTH DAILY IN THE EVENING lisinopril 10 mg tablet 10 mg PO QDAY Patient Comments: TAKE 1 TABLET BY MOUTH DAILY Referrals: No Primary/Family,Physician [Primary Care Provider] Patient/Caregiver Discharge Instructions Print Language: [place]
--- NOTE | 2025-06-19 11:40 | ESPR_ITS ---
<Statement entered by Alexis Black MD - 06/19/25 16:09> No acute overnight events. Seen and examined at bedside and resting comfortably in bed. States that symptoms symptoms, including pain and swelling, have improved since being admitted. Vital signs stable as she has been afebrile on room air. CBC shows stable leukocytosis and hemoglobin. CHEM panel largely unremarkable. Per infectious disease we will continue vancomycin through 07/11 and patient to be discharged with PICC line. PICC line ordered but unable to be placed today and will likely be placed tomorrow and anticipate discharge within next 24 to 48 hours. ----- Note reviewed and agree with care plan as documented. Please refer to the note below for further details. Plan discussed with attending physician Dr. Neal Black MD PGY-2 Internal Medicine Documentation for date of: 06/19/25 Subjective Subjective Interval history: No acute events night. Patient this morning is saying her foot pain continue to be improved. Patient is planned to get picc line tomorrow since it was unavailable today. Patient's vitals are stable, making urine and having good bowel movements. Exam Vital Signs Temp Pulse Resp BP Pulse Ox O2 Del Method O2 Flow Rate 97.7 F 90 18 124/64 95 Room Air 4 06/19/25 08:00 06/19/25 08:50 06/19/25 08:15 06/19/25 08:50 06/19/25 08:15 06/19/25 08:00 06/15/25 16:23 Narrative Exam General: No acute distress; A&Ox3 Skin: R ankle erythema decreased. No other rashes or skin breakages noted HENT: NCAT, EOMI/PERRL, not icteric. External ears normal. No rhinorrhea. Moist mucous membranes Cardiovascular: Regular rate and rhythm, no murmur, +S1/S2. Respiratory: Lungs CTAB GI: Soft, nontender, non-distended. No guarding or rebound tenderness. : No suprapubic tenderness. No flank tenderness bilaterally. Extremities: R foot swelling and erythema decreased from yesterday; R ankle wrapped and in cast, clean and dry. no cyanosis, no clubbing. Extremity pulses present Neuro: Grossly nonfocal. Moving all 4 extremities. CN not formally tested but appear grossly intact. Psychiatric: Cooperative, appropriate affect. Objective Labs 06/20/25 04:33 06/20/25 04:33 Labs: Laboratory Results - last 24 hr 06/18/25 06/19/25 20:57 05:25 WBC 11.8 H RBC 3.77 L Hgb 10.4 L Hct 32.3 L MCV 86 MCH 27.6 MCHC 32.2 RDW Std Deviation 43.2 Plt Count 508 H D Neut % (Auto) 68 Lymph % (Auto) 20 Hendricks % (Auto) 8 Eos % (Auto) 2 Baso % (Auto) 1 Neut # (Auto) 8.0 H Lymph # (Auto) 2.4 Hendricks # (Auto) 0.9 H Eos # (Auto) 0.3 Baso # (Auto) 0.1 Immature Gran # (Auto) 0.19 H Absolute Nucleated RBC 0.00 Immature Gran % 2 H Nucleated RBC % 0 Sodium 139 Potassium 4.4 Chloride 103 Carbon Dioxide 26.6 Anion Gap 9 BUN 15 Creatinine 0.8 Estim Creat Clear Calc 110.1 eGFR > 60 BUN/Creatinine Ratio 19 Glucose 131 H Calculated Osmolality 280 Calcium 9.5 Corrected Calcium 9.6 Phosphorus 3.8 Magnesium 1.6 Total Bilirubin 0.3 AST 18 ALT 39 Alkaline Phosphatase 138 H Total Protein 6.8 Albumin 3.9 Globulin 2.9 Albumin/Globulin Ratio 1.3 Vancomycin Trough 20.0 H Quality Measures Quality Measures VTE prophylaxis Assessment & Plan Assessment Current Active Medications: Generic Name Dose Route Start Last Admin Trade Name Freq PRN Reason Stop Dose Admin Acetaminophen 650 mg 06/12/25 22:32 06/15/25 20:37 Acetaminophen 325 Mg Tablet PO 07/12/25 22:31 650 mg Q6H PRN Administration Fever >101.5 or pain 1-3 Hydrocodone Bitart/Acetaminophen 1 tab 06/18/25 09:53 06/19/25 09:50 Hydrocodone/Apap 5/325 Tablet PO 06/23/25 09:52 1 tab Q6HR PRN Administration PAIN SCALE 4-10(Mod-Sev Albuterol/Ipratropium 3 ml 06/15/25 15:27 Albuterol/Ipratropium (Duoneb) Rt Joceline 3 Ml Nebu INH 07/15/25 15:26 Q4HRRT PRN SHORTNESS OF BREATH Atorvastatin Calcium 5 mg 06/13/25 21:00 06/18/25 20:07 Atorvastatin Calcium 10 Mg Tablet PO 07/13/25 20:59 5 mg HS ELIAS Administration Dextrose 25 ml 06/13/25 01:41 Dextrose 50%-Water Inj 50 Ml Syringe IV 07/13/25 01:40 Q15MIN PRN BG 50-70 responsive npo pt Dextrose 50 ml 06/13/25 01:41 Dextrose 50%-Water Inj 50 Ml Syringe IV 07/13/25 01:40 Q15MIN PRN BG <50 OR BG <70 & pt unresponsive Enoxaparin Sodium 40 mg 06/13/25 09:00 06/19/25 08:50 Enoxaparin Sod Inj 40 Mg/0.4 Ml Syringe SC 06/27/25 08:59 Not Given QDAY ELIAS Gabapentin 200 mg 06/17/25 13:00 06/19/25 08:50 Gabapentin 100 Mg Capsule PO 07/17/25 12:59 200 mg BID ELIAS Administration Glucagon 1 mg 06/13/25 01:41 Glucagon Inj 1 Mg Vial IM Q15MIN PRN BG <70, and no IV access Vancomycin HCl 1,500 mg/ 500 mls @ 120 mls/hr 06/17/25 10:30 06/19/25 09:51 Sodium Chloride IV 06/23/25 09:59 120 mls/hr BID@1000,2200 ELIAS Administration Protocol Insulin Human Lispro 0 unit 06/13/25 20:00 06/19/25 11:32 Insulin Lispro (Admelog) 1 Unit/0.01 Ml Unit SC 07/13/25 19:59 Not Given ACHS [facility] Protocol Lisinopril 10 mg 06/13/25 09:00 06/19/25 08:50 Lisinopril 2.5 Mg Tablet PO 07/13/25 08:59 10 mg QDAY ELIAS Administration Pharmacy Consult 1 each 06/13/25 09:00 Vancomycin Pharmacy To Dose 1 Each Each IV 07/13/25 08:59 QDAY PRN CONSULT Sennosides 1 tab 06/13/25 00:49 Senna/Docusate Sod 1 Tab Tablet PO 07/13/25 00:48 QDAY PRN CONSTIPATION Protocol Plan This patient is a 49-year-old female with a history of [id number] T2DM, hypertension, hyperlipidemia, arthritis, and GERD who presented to [facility] ED on 06/12 for right ankle pain and swelling. Patient was admitted for osteomyelitis and septic arthritis rule out; s/p I&D right ankle 06/15; plan for pic #Septic Arthritis of right ankle #Osteomyelitis of right ankle #Charcot ankle #Staph aureus bacteremia DDx: Osteomyelitis, septic arthritis, gout flare, pseudogout flare, charcot ankle, AVN Patient noted to have right ankle swelling that was present since November 2024 and has since increased in size and worsened and pain over time. Cool compress with ice initially held, but no longer provides any relief. Initial imaging negative for any acute processes, however now patient endorses fever at home and pain has progressed to where she is unable to bear weight on her right leg. Patient does endorse a history of gout, but is not sure what led to this diagnosis and she does not take any medication for management of this condition. Patient has history of contact cast, making charcot ankle a differential. Patient has used steroids in the past for asthma, possible AVN. Diagnostics: WBC on admission 15.8 with ESR of 53 and CRP of 25.1; Uric acid wnl Blood culture prelim reported to be GPC with staph appearance. Synovial Fluid grew S.aureus Discontinued Zosyn (06/12-06/16) MRI R ankle showed significant erosive arthritic change involving the tibiotalar joint including 8 mm cortical erosion dorsal anterior surface of the talus. S/P Right ankle I&D 06/15. Treatment: -Orthopedic surgery consulted, appreciate recommendations -I.D. consulted, appreciate recommendations -Vancomycin daily (06/12-) -[place] 5/325 1 tablet every 6 hours as needed for pain -Gabapentin 200 mg po bid -Plan for PICC line 06/20; abx outpatient (Vancomycin) through 07/11. #Non-insulin dependent type 2 diabetes mellitus Patient noted to have a history of T2DM for which she takes metformin at home. Patient notes that she keeps her hemoglobin A1c at around 6%, however no recent hemoglobin A1c on file, previous 1 was from 2017. Diagnostics: Hemoglobin A1c 6.7 (06/13/2025) Treatment: Sliding scale insulin Bedside glucose checks ACHS #Hypertension Patient endorses a history of hypertension and takes lisinopril at home. Possibly due to pain Treatment: -lisinopril 10 mg qday #Hyperlipidemia Patient endorses a history of hyperlipidemia and takes simvastatin at home. Diagnostics: Lipid panel wnl Treatment: -atorvastatin 5 mg po q hs #GERD Patient has a history of GERD and takes Protonix 40 mg daily for management of this. Treatment: -Protonix 40 mg daily #Leukocytosis, improving Patient noted to have elevated WBC of 15.8 with left shift on presentation in the ED. Reactive secondary to patient's pain versus active infection with suspected osteomyelitis or septic arthritis. Treatment: Will continue to monitor with daily labs, continue treatment with antibiotics #Anemia, normocytic Patient noted to have hemoglobin of 11.5 with MCV in normal range on admission. Possibly anemia of chronic disease given months long swelling and pain of her right ankle. Treatment: Continue to monitor, transfuse if hemoglobin less than 7 Patient to follow-up outpatient Reason for Hospitalization: Osteomyelitis & septic arthritis DVT Prophylaxis: Lovenox 40 mg qd GI Prophylaxis: none Bowel: Senokot PRN Diet: Regular Lines: PIV Antibiotics: Vancomycin Code Status: FULL Patient plan of care was discussed with the attending physician, Dr. De Jesus & senior resident Dr. Freddie Aldridge MD PGY-1 Attending Provider Attestation/Addendum I, Paty De Jesus, , attest that I was physically present for the brambila portions of the service and evaluated the patient with the resident and I reviewed and discussed the case with the resident and agree with the resident's findings and plans of care as documented above Patient seen and eval this a.m. She is to undergo PICC line placement today. Home health order placed for vancomycin until 07/11. Patient states pain is well-controlled. No acute events overnight. Anticipate discharge within the next 24 hours.
--- NOTE | 2025-06-19 15:00 | PC.SS ---
Rounding: Pending PICCLINE and HH establishment for IV ABX, HH REINA Chua made aware and is working on it
[2025-06-19] MEDS: ATORVASTATIN CALCIUM 10 MG TABLET 5 MG PO (21:10)
[2025-06-19] MEDS: INSULIN LISPRO (AdmeLOG) 1 UNIT/0.01 ML UNIT SC (21:24)
[2025-06-20] VITALS (10 sets, daily range): BP systolic 102–131; BP diastolic 63–91; PULSE 82–92; RESP 15–97; TEMP 36.4–37.2; O2SAT 94–97
[2025-06-20 06:07] LABS: Alanine Aminotransferase 31 U/L (10-49); Albumin, Serum 3.9 gm/dL (3.5-5.0); Albumin/Globulin Ratio 1.3 (1.2-2.2); Alkaline Phosphatase 134 U/L (46-116); Anion Gap 10 (7-16); Aspartate Amino Transferase 15 U/L (0-34); BUN/Creatinine Ratio 19 Ratio (12-20); Bilirubin,Total 0.3 mg/dL (0.3-1.2); Blood Urea Nitrogen 15 mg/dL (9-23); Calcium 9.6 mg/dL (8.3-10.6); Calcium (Corrected) 9.7 mg/dL (8.5-10.1); Carbon Dioxide 27.4 mMol/L (20.0-31.0); Chloride 103 mMol/L (98-107); Creatinine (Component) 0.8 mg/dL (0.6-1.3); Estimated Creatinine Clearance 110.1 mL/min (>60); Globulin 3.1 gm/dL (2.3-3.5); Glucose 131 mg/dL (74-106); Magnesium 1.7 mg/dL (1.6-2.6); Osmolality,Calculated 282 (275-295); Phosphorous 4.4 mg/dL (2.4-5.1); Potassium 4.3 mMol/L (3.4-5.1); Sodium 140 mMol/L (136-145); Total Protein 7.0 gm/dL (5.7-8.2); eGFR > 60 See Note
[2025-06-20 06:15] LABS: Basophils # (Auto) 0.1 Thou/mm3 (0.0-0.2); Basophils % (Auto) 1 % (0-2.5); Eosinophils # (Auto) 0.3 Thou/mm3 (0.0-0.5); Eosinophils % (Auto) 2 % (0-10); Hematocrit 33.8 % (36.0-46.0); Hemoglobin 10.8 g/dL (12.0-16.0); Immature Granulocytes Auto 0.21 Thou/mm3 (0.00-0.00); Lymphocytes # (Auto) 2.9 Thou/mm3 (1.0-4.8); Lymphocytes % (Auto) 23 % (10-50); Mean Corpuscular HGB Conc 32.0 g/dl (31.0-37.0); Mean Corpuscular Hemoglobin 28.1 pg (25.0-35.0); Mean Corpuscular Volume 88 fL (80-100); Monocytes # (Auto) 0.9 Thou/mm3 (0.0-0.8); Monocytes % (Auto) 7 % (0-12); Neutrophils # (Auto) 8.0 Thou/mm3 (1.8-7.7); Neutrophils % (Auto) 65 % (37-80); Nucleated Red Blood Cell # 0.00 Thou/mm3 (0.00-0.00); Nucleated Red Blood Cell % 0 /100 WBC (0); Platelet Count 501 Thou/mm3 (140-440); RDW Standard Deviation 44.9 fL (36.4-46.3); Red Blood Count 3.85 Miln/mm3 (4.00-5.20); White Blood Count 12.3 Thou/mm3 (3.6-11.0)
[2025-06-20] MEDS: HYDROcodone/APAP 5/325 TABLET 1 TAB PO ×2 (07:33→19:10)
[2025-06-20] MEDS: GABAPENTIN 100 MG CAPSULE 200 MG PO ×2 (08:04→20:53)
[2025-06-20] MEDS: ENOXAPARIN SOD INJ 40 MG/0.4 ML SYRINGE SC (08:04)
[2025-06-20 10:15] LABS: Vancomycin,Trough 18.5 mcg/mL (5.0-10.0)
--- NOTE | 2025-06-20 10:20 | XR_ITS ---
EXAM: Fluoroscopic and ultrasound-guided right brachial vein PICC line placement. INDICATION needs antibiotics. DATE: 06/20/2025, 10:50 a.m. Fluoroscopy time: 0.8 minutes Dose: 7.02 mGy PROCEDURE: The area around the existing butterfly brachial vein IV was cleaned and draped in normal sterile surgical fashion. 10 cc of 1% lidocaine was used for local anesthesia. 0.018 wire was advanced through the butterfly into the brachial vein and the butterfly was removed. 6 Japanese peel-away sheath was advanced over the wire removed. 0.018 measuring wire was then advanced through the peel-away sheath into the SVC. PICC line was cut to 49 cm and then advanced over the wire and the wire removed. Distal catheter tip was appropriately positioned at the SVC right atrial junction. Both ports flushed and aspirated easily. The catheter was secured at the antecubital fossa and covered with a sterile dressing. There were no immediate complications. IMPRESSION: Successful right brachial vein PICC line placement as above. Catheter is ready for use.
[2025-06-20 10:35] LABS: INR 1.0 (0.9-1.3); Partial Thromboplastin Time 24.5 Seconds (22.0-36.0); Prothrombin Time 10.6 Seconds (9.0-12.2)
[2025-06-20] MEDS: LIDOCAINE INJ PF 1% 30 ML VIAL 10 ML EPID (11:47)
[2025-06-20] MEDS: HEPARIN SOD LOCK SYR 100 UNIT/ML 500 UNIT STFIELD (11:47)
--- NOTE | 2025-06-20 11:58 | PC.NURSE ---
Patient was taken to IR for consent Dr Ventura explained the procedure to patient and patient agreed to the PICC Line insertion Patient prepped and draped Time out was performed with the entire team present PICC line inserted measuring at 49 CM Gave me the verbal order to put in ?May access PICC Line? in the EMR Patient is stable Report given to REINA Estrada See MAR for medications given
[2025-06-20] MEDS: VANCOMYCIN/D5W 1500 MG IVPB 300 ML 120 MG IV (12:17)
--- NOTE | 2025-06-20 14:34 | ESDS_ITS ---
<Statement entered by Alexis Black MD - 06/20/25 20:14> Note reviewed and agree with care plan as documented. Please refer to the note below for further details. Plan discussed with attending physician Dr. Kishore Black MD PGY-2 Internal Medicine Planned Discharge Date 06/20/25 DS: Providers Provider Date of admission: 06/12/25 22:33 Primary care physician: Physician No Primary/Family Admitting Provider: Oracio Wesley MD Attending Provider on Admission: Paty De Jesus DO Consults: 06/12/25 21:54 Consult to Orthopedic Stat Comment: Septic joint, AVM Consulting Provider: Louie Miller 06/14/25 17:45 Consult to Infectious Diseases Routine Comment: Septic Artheritis of the Rt ankle Consulting Provider: Bc Lloyd 06/17/25 12:38 Referral Physical Therapy Routine Comment: Physician Instructions: Instructions: assist and evaluation of ambulation Attending Provider on DC: Lemuel Novak MD Discharging Provider: Lemuel Novak MD DS: Diagnosis Problem List Completed Was Problem List Reviewed/Reconciled?: Yes Hospital Course Hospital Course Hospital course: Patient is a 49-year-old female with a history of sow-ancagyp-xbinogila T2DM, hypertension, hyperlipidemia, arthritis, and GERD who presented to [facility] ED on 06/12 for right ankle pain and swelling. Patient was admitted for osteomyelitis and septic arthritis rule out. Patient has had this swelling since November 2024 with MRI 01/2025 showing large effusion without acute processes. During this hospitalization, Right ankle XR was taken showing bony erosions involving dome of the talus and distal articular surface of the tibia with large ankle effusion, suspicious for osteomyelitis. Patient endorsed fevers at home but did not have fevers this admission. Patient?s ESR, CRP and WBC were elevated. Joint aspiration was done but, due to issue with transferring correctly to the lab, we were unable to get an analysis of the joint fluid. Patient was seen by Orthopedic surgeon Dr. Miller and he performed a right ankle open I&D. Blood cultures grew staph aureus and patient was started on vancomycin. Patient had cultures re-drawn 2 days after which resulted negative before placing a PICC line for the patient to go home with and continue vancomycin outpatient with the help of home health through July 11, 2025. Discharge Instructions: ? Continue taking Vancomycin up until 07/11 with home health ? Recommend using Tylenol and/or [place] for pain control and hold taking ibuprofen until you follow-up with your PCP ? Continue taking all other home medications as prescribed ? Recommend obtaining weekly blood panels (CBC, renal panel, ESR/CRP) per infectious disease recommendations ? Follow-up with PCP within 1-2 weeks of discharge ? Follow-up with orthopedic surgeon within 1-2 weeks of discharge ? If you do not have a PCP, you can follow-up at the [facility] (you can call [phone] to make an appointment) ? Return to ED if symptoms worsen or recur #Septic Arthritis of right ankle #Osteomyelitis of right ankle #Charcot Ankle #Staph aureus bacteremia #Non-insulin dependent type 2 diabetes mellitus #Hypertension #Hyperlipidemia #GERD #Leukocytosis #Anemia, normocytic Patient plan of care was discussed with the attending physician, Dr. Novak & senior resident Dr. Freddie Aldridge MD PGY-1 Time Spent with Patient Time attestation: Total time spent providing and/or coordinating discharge services: Time spent: Greater than 30 minutes Home Health Home Health Referral Orders: 06/19/25 09:25 Home Health Referral Routine Reason For Exam: septic arthritis of right ankle Home-Bound The patient must either because of illness or injury, need the aid of suppor tive devices such as crutches, canes, wheelchairs, and walkers; the use of special transportation; or the assistance of another person in order to leave their place of residence; OR have a conditi on such that leaving his or her home is medically contraindicated. In addition, the patient also meets the following criteria: patient is normally unable to leave the home and leaving home requires considerable taxing effort. Addendum to Home Health Certification Practitioner's Certification: I certify that the patient has been under my care in the hospital and the care of attending physician (see below). We had a yqal-ie-tion encounter on (see date below). My clinical findings indicate that the patient is home bound per the above criteria and the Home Health Services noted in these orders are medically necessary. The primary reason for the [id number] encounter is related to the fact that the patient requires home health services. Date Certifying [id number] Physician Encounter: 06/12/25 Physician's Name who will Assume Oversight for Services: Paris Oropeza Physician's Phone No.who will Assume Oversight for Service: TOY MAKER - Community Resources: No PT to Evaluate: Yes PT to evaluate and provide a treatmnet plan to increase patient's mobility and strength. Wound Care: Yes Home Health RN - Wound Care Order: as per wound care nurse IV Therapy: Yes: weekly cbc, renal panel, ESR, vancomycin trough for dosing IV Medication: Vancomcyin (pharmacy to dose) IV Dose: 1500 IV Frequency: BID IV Stop Date: 07/11/25 Discontinue PICC Line Once Treatment Complete: Yes RN Safety Evaluation: Yes RN to evaluate and create a plan of care that will produce positive outcomes. Palliative Treatment: No Palliative treatment and evaluate the need for hospice. Home Health Aide - Personal Care: Yes Home Health Aide to assist with any ADL's. Exam Vital Signs Temp Pulse Resp BP Pulse Ox O2 Del Method O2 Flow Rate 97.9 F 84 15 118/67 95 Room Air 4 06/20/25 07:39 06/20/25 11:55 06/20/25 11:55 06/20/25 11:55 06/20/25 11:55 06/20/25 11:55 06/15/25 16:23 Narrative Exam General: No acute distress; A&Ox3 Skin: R ankle erythema decreased. No other rashes or skin breakages noted HENT: NCAT, EOMI/PERRL, not icteric. External ears normal. No rhinorrhea. Moist mucous membranes Cardiovascular: Regular rate and rhythm, no murmur, +S1/S2. Respiratory: Lungs CTAB GI: Soft, nontender, non-distended. No guarding or rebound tenderness. : No suprapubic tenderness. No flank tenderness bilaterally. Extremities: R foot swelling and erythema decreased from yesterday; R ankle wrapped and in cast, clean and dry. no cyanosis, no clubbing. Extremity pulses present Neuro: Grossly nonfocal. Moving all 4 extremities. CN not formally tested but appear grossly intact. Psychiatric: Cooperative, appropriate affect. Discharge Plan Plan Patient Disposition: Home w/HOME HEALTH Patient condition on transfer: Stable Care Plan Goals: ? Continue taking vancomycin up until 12/30 with home health ? Recommend using Tylenol and/or [place] for pain control and hold taking ibuprofen until you follow-up with your PCP ? Continue taking all other home medications as prescribed ? Recommend obtaining weekly blood panels (CBC, renal panel, ESR/CRP) per infectious disease recommendations ? Follow-up with PCP within 1-2 weeks of discharge ? Follow-up with orthopedic surgeon within 1-2 weeks of discharge ? If you do not have a PCP, you can follow-up at the [facility] (you can call [phone] to make an appointment) ? Return to ED if symptoms worsen or recur Prescriptions/Referrals Prescriptions/Med Rec: New vancomycin 1.5 gram recon soln 1.5 g IV Q12H 21 Days Continued metformin [Glucophage] 500 MG tablet 500 mg PO BID Qty: 0 Pantoprazole Sodium 40 MG TABLET.DR 40 mg PO DAILY Qty: 0 hydrocodone-acetaminophen 5-325 mg tablet 1 tab PO Q12H PRN (Reason: pain) Patient Comments: TAKE 1 TABLET BY MOUTH EVERY 6 HOURS NEEDED FOR 30 DAYS phenazopyridine 100 mg tablet 100 mg PO Q8H Patient Comments: TAKE 1 TABLET BY MOUTH 3 TIMES A DAY simvastatin 10 mg tablet 10 mg PO HS Patient Comments: TAKE 1 TABLET BY MOUTH DAILY IN THE EVENING lisinopril 10 mg tablet 10 mg PO QDAY Patient Comments: TAKE 1 TABLET BY MOUTH DAILY Held ibuprofen 800 mg Tablet 800 mg PO TID Hold Instructions: Hold until you follow-up with PCP. Referrals: No Primary/Family,Physician [Primary Care Provider] Patient/Caregiver Discharge Instructions Print Language: Luxembourgish Stand Alone Forms: Katerina Award Info., Patient Portal Info Letter Quality Discharge Quality Measures VTE prophylaxis MD Attestestation MD Attestation I have examined the patient, reviewed labs and imaging findings, discussed the case with the resident(s), and reviewed entered orders. I agree with the plan of care as outlined in this note. Time Spent: [address] Kishore MD
--- NOTE | 2025-06-20 15:22 | ESPR_ITS ---
<Statement entered by Alexis Black MD - 06/20/25 20:31> No acute overnight events. Seen and examined at bedside and patient states that her symptoms have significantly improved since being admitted. Pain is well- managed with oral pain medications. PICC line placed and will follow-up with bottle caser and transfer nurse regarding home health services. Vital signs stable. Mild increase in leukocytosis, hemoglobin stable. CHEM panel unremarkable. Touched base again with secondary social studies teacher and transfer nurse and informed of possible complications regarding home support. Will follow-up tomorrow. ----- Note reviewed and agree with care plan as documented. Please refer to the note below for further details. Plan discussed with attending physician Dr. Kishore Black MD PGY-2 Internal Medicine Documentation for date of: 06/20/25 Subjective Subjective Interval history: No acute events night. Patient this morning is saying her foot pain continue to be improved. Patient received picc line today Pending ability to receive medications/help for outpatient; family reportedly not available at this time. Exam Vital Signs Temp Pulse Resp BP Pulse Ox O2 Del Method O2 Flow Rate 97.9 F 82 16 118/69 95 Room Air 4 06/20/25 15:21 06/20/25 15:21 06/20/25 15:21 06/20/25 15:21 06/20/25 15:21 06/20/25 15:21 06/15/25 16:23 Narrative Exam General: No acute distress; A&Ox3 Skin: R ankle erythema decreased. No other rashes or skin breakages noted HENT: NCAT, EOMI/PERRL, not icteric. External ears normal. No rhinorrhea. Moist mucous membranes Cardiovascular: Regular rate and rhythm, no murmur, +S1/S2. Respiratory: Lungs CTAB GI: Soft, nontender, non-distended. No guarding or rebound tenderness. : No suprapubic tenderness. No flank tenderness bilaterally. Extremities: R foot swelling and erythema decreased from yesterday; R ankle wrapped and in cast, clean and dry. no cyanosis, no clubbing. Extremity pulses present Neuro: Grossly nonfocal. Moving all 4 extremities. CN not formally tested but appear grossly intact. Psychiatric: Cooperative, appropriate affect. Objective Labs 06/21/25 04:57 06/21/25 04:57 Labs: Laboratory Results - last 24 hr 06/20/25 06/20/25 04:33 09:27 WBC 12.3 H RBC 3.85 L Hgb 10.8 L Hct 33.8 L MCV 88 MCH 28.1 MCHC 32.0 RDW Std Deviation 44.9 Plt Count 501 H Neut % (Auto) 65 Lymph % (Auto) 23 [place] % (Auto) 7 Eos % (Auto) 2 Baso % (Auto) 1 Neut # (Auto) 8.0 H Lymph # (Auto) 2.9 [place] # (Auto) 0.9 H Eos # (Auto) 0.3 Baso # (Auto) 0.1 Immature Gran # (Auto) 0.21 H Absolute Nucleated RBC 0.00 Immature Gran % 2 H Nucleated RBC % 0 PT 10.6 INR 1.0 APTT 24.5 Sodium 140 Potassium 4.3 Chloride 103 Carbon Dioxide 27.4 Anion Gap 10 BUN 15 Creatinine 0.8 Estim Creat Clear Calc 110.1 eGFR > 60 BUN/Creatinine Ratio 19 Glucose 131 H Calculated Osmolality 282 Calcium 9.6 Corrected Calcium 9.7 Phosphorus 4.4 Magnesium 1.7 Total Bilirubin 0.3 AST 15 ALT 31 Alkaline Phosphatase 134 H Total Protein 7.0 Albumin 3.9 Globulin 3.1 Albumin/Globulin Ratio 1.3 Vancomycin Trough 18.5 H Quality Measures Quality Measures VTE prophylaxis Assessment & Plan Assessment Current Active Medications: Generic Name Dose Route Start Last Admin Trade Name Freq PRN Reason Stop Dose Admin Acetaminophen 650 mg 06/12/25 22:32 06/15/25 20:37 Acetaminophen 325 Mg Tablet PO 07/12/25 22:31 650 mg Q6H PRN Administration Fever >101.5 or pain 1-3 Hydrocodone Bitart/Acetaminophen 1 tab 06/18/25 09:53 06/20/25 07:33 Hydrocodone/Apap 5/325 Tablet PO 06/23/25 09:52 1 tab Q6HR PRN Administration PAIN SCALE 4-10(Mod-Sev Albuterol/Ipratropium 3 ml 06/15/25 15:27 Albuterol/Ipratropium (Duoneb) Rt Joceline 3 Ml Nebu INH 07/15/25 15:26 Q4HRRT PRN SHORTNESS OF BREATH Atorvastatin Calcium 5 mg 06/13/25 21:00 06/19/25 21:10 Atorvastatin Calcium 10 Mg Tablet PO 07/13/25 20:59 5 mg HS ELIAS Administration Dextrose 25 ml 06/13/25 01:41 Dextrose 50%-Water Inj 50 Ml Syringe IV 07/13/25 01:40 Q15MIN PRN BG 50-70 responsive npo pt Dextrose 50 ml 06/13/25 01:41 Dextrose 50%-Water Inj 50 Ml Syringe IV 07/13/25 01:40 Q15MIN PRN BG <50 OR BG <70 & pt unresponsive Enoxaparin Sodium 40 mg 06/13/25 09:00 06/20/25 08:04 Enoxaparin Sod Inj 40 Mg/0.4 Ml Syringe SC 06/27/25 08:59 40 mg QDAY ELIAS Administration Gabapentin 200 mg 06/17/25 13:00 06/20/25 08:04 Gabapentin 100 Mg Capsule PO 07/17/25 12:59 200 mg BID ELIAS Administration Glucagon 1 mg 06/13/25 01:41 Glucagon Inj 1 Mg Vial IM Q15MIN PRN BG <70, and no IV access Vancomycin HCl 1,500 mg/ 500 mls @ 120 mls/hr 06/20/25 22:00 Sodium Chloride IV 06/27/25 21:59 BID@1000,2200 [facility] Protocol Insulin Human Lispro 0 unit 06/13/25 20:00 06/20/25 11:30 Insulin Lispro (Admelog) 1 Unit/0.01 Ml Unit SC 07/13/25 19:59 Not Given ACHS [facility] Protocol Lisinopril 10 mg 06/13/25 09:00 06/20/25 08:04 Lisinopril 2.5 Mg Tablet PO 07/13/25 08:59 10 mg QDAY ELIAS Administration Pharmacy Consult 1 each 06/13/25 09:00 Vancomycin Pharmacy To Dose 1 Each Each IV 07/13/25 08:59 QDAY PRN CONSULT Sennosides 1 tab 06/13/25 00:49 Senna/Docusate Sod 1 Tab Tablet PO 07/13/25 00:48 QDAY PRN CONSTIPATION Protocol Plan This patient is a 49-year-old female with a history of [id number] T2DM, hypertension, hyperlipidemia, arthritis, and GERD who presented to [facility] ED on 06/12 for right ankle pain and swelling. Patient was admitted for osteomyelitis and septic arthritis rule out; s/p I&D right ankle 06/15; Patient received picc line 06/20. Pending ability to receive medications/help for outpatient; family reportedly not available at this time. #Septic Arthritis of right ankle #Osteomyelitis of right ankle #Charcot ankle #Staph aureus bacteremia DDx: Osteomyelitis, septic arthritis, gout flare, pseudogout flare, charcot ankle, AVN Patient noted to have right ankle swelling that was present since November 2024 and has since increased in size and worsened and pain over time. Cool compress with ice initially held, but no longer provides any relief. Initial imaging negative for any acute processes, however now patient endorses fever at home and pain has progressed to where she is unable to bear weight on her right leg. Patient does endorse a history of gout, but is not sure what led to this diagnosis and she does not take any medication for management of this condition. Patient has history of contact cast, making charcot ankle a differential. Patient has used steroids in the past for asthma, possible AVN. Diagnostics: WBC on admission 15.8 with ESR of 53 and CRP of 25.1; Uric acid wnl Blood culture prelim reported to be GPC with staph appearance. Synovial Fluid grew S.aureus Discontinued Zosyn (06/12-06/16) MRI R ankle showed significant erosive arthritic change involving the tibiotalar joint including 8 mm cortical erosion dorsal anterior surface of the talus. S/P Right ankle I&D 06/15. Treatment: -Orthopedic surgery consulted, appreciate recommendations -I.D. consulted, appreciate recommendations -Vancomycin daily (06/12-) -[place] 5/325 1 tablet every 6 hours as needed for pain -Gabapentin 200 mg po bid -PICC line completed 06/20; abx outpatient (Vancomycin) through 07/11. #Non-insulin dependent type 2 diabetes mellitus Patient noted to have a history of T2DM for which she takes metformin at home. Patient notes that she keeps her hemoglobin A1c at around 6%, however no recent hemoglobin A1c on file, previous 1 was from 2017. Diagnostics: Hemoglobin A1c 6.7 (06/13/2025) Treatment: Sliding scale insulin Bedside glucose checks ACHS #Hypertension Patient endorses a history of hypertension and takes lisinopril at home. Possibly due to pain Treatment: -lisinopril 10 mg qday #Hyperlipidemia Patient endorses a history of hyperlipidemia and takes simvastatin at home. Diagnostics: Lipid panel wnl Treatment: -atorvastatin 5 mg po q hs #GERD Patient has a history of GERD and takes Protonix 40 mg daily for management of this. Treatment: -Protonix 40 mg daily #Leukocytosis Patient noted to have elevated WBC of 15.8 with left shift on presentation in the ED. Reactive secondary to patient's pain versus active infection with suspected osteomyelitis or septic arthritis. Treatment: Will continue to monitor with daily labs, continue treatment with antibiotics #Anemia, normocytic Patient noted to have hemoglobin of 11.5 with MCV in normal range on admission. Possibly anemia of chronic disease given months long swelling and pain of her right ankle. Treatment: Continue to monitor, transfuse if hemoglobin less than 7 Patient to follow-up outpatient Reason for Hospitalization: Osteomyelitis & septic arthritis DVT Prophylaxis: Lovenox 40 mg qd GI Prophylaxis: none Bowel: Senokot PRN Diet: Regular Lines: PIV Antibiotics: Vancomycin Code Status: FULL Patient plan of care was discussed with the attending physician, Dr. Novak & senior resident Dr. Freddie Aldridge MD PGY-1 Attending Provider Attestation/Addendum I have examined the patient, reviewed labs and imaging findings, discussed the case with the resident(s), and reviewed entered orders. I agree with the plan of care as outlined in this note. Dr. Kishore MD
--- NOTE | 2025-06-20 15:23 | PC.CC ---
Addendum entered by Bertrand Joiner RN 06/20/25 16:46: spoke to Vivienne she informed me that patient felt overwhelmed. Pt informed Vivienne that she does have a friend to accept the meds. I spoke to patient to inform her that I am still working on getting her discharged tonight since she now has a friend avail to accept meds. Pt was agreeable. Called Joao with [facility] and Nic with [facility] again to coordinate delivery of meds and SOC. Joao called me back after speaking with the patient and informed her of her copays. He informed me that pt is now unsure of how she wants to proceed. I messaged Nic VICTOR via [facility] to hold off on med delivery. I informed Dr. Black of the back and forth with the patient and that SW will have to follow up in the morning. Addendum entered by Bertrand Joiner RN 06/20/25 15:29: Dr. Black made aware, he was slightly upset. I called [facility] and left a message. Original Note: POC: D/c tonight after IV abx dose. [facility] willing to open tomorrow morning for morning dose. However, pt informed VALENTE and charge nurse Myranda that she has no one to accept medications today and no one to help her at home with the abx. She informed SANDRA Whitmore that her sister is out of town until Thursday. I spoke to Nic VICTOR, case put on hold for now since patient does not have any help. Nic agreed and he stated he will let Ray from [facility] know to cancel SOC for tomorrow.
--- NOTE | 2025-06-20 16:14 | PC.SS ---
follow up note: Patient was to d/c home tonight after last dose of iv.'s but she told nursing staff that she had no one to receive the medications or help her at home. SS went in to speak with patient who was visibly crying. SS asked to go over the discharge plans again. SS inquired if patient still had two friends that had agreed to help her at home. Patient responded that she did. Patient states she felt overwhelmed and told staff she didn't have anyone. Patient states her friend Tricia is able to help her until her sister gets back in town this Sat. SS updated transfer nurse. SS explained to patient that when she is feeling overwhelmed to contact me so we can discuss the plans again. Patient states her friend can also pick her up tomorrow evening. If she cannot we can set up UBER. Updated physician team as well. D/c for Thursday evening.
[2025-06-20] MEDS: ATORVASTATIN CALCIUM 10 MG TABLET 5 MG PO (20:53)
[2025-06-20] MEDS: Vancomycin Inj 1,500 MG in SODIUM CHLORIDE 0.9% 500 ML 500 ML 120 MG IV (21:02)
[2025-06-21] VITALS (8 sets, daily range): BP systolic 113–132; BP diastolic 64–85; PULSE 68–84; RESP 18–99; TEMP 35.8–36.4; O2SAT 95–99
[2025-06-21] MEDS: HYDROcodone/APAP 5/325 TABLET 1 TAB PO ×4 (02:48→21:40)
[2025-06-21 06:14] LABS: Basophils # (Auto) 0.1 Thou/mm3 (0.0-0.2); Basophils % (Auto) 1 % (0-2.5); Eosinophils # (Auto) 0.3 Thou/mm3 (0.0-0.5); Eosinophils % (Auto) 3 % (0-10); Hematocrit 33.6 % (36.0-46.0); Hemoglobin 10.7 g/dL (12.0-16.0); Immature Granulocytes Auto 0.10 Thou/mm3 (0.00-0.00); Lymphocytes # (Auto) 2.0 Thou/mm3 (1.0-4.8); Lymphocytes % (Auto) 20 % (10-50); Mean Corpuscular HGB Conc 31.8 g/dl (31.0-37.0); Mean Corpuscular Hemoglobin 27.2 pg (25.0-35.0); Mean Corpuscular Volume 86 fL (80-100); Monocytes # (Auto) 0.8 Thou/mm3 (0.0-0.8); Monocytes % (Auto) 8 % (0-12); Neutrophils # (Auto) 7.0 Thou/mm3 (1.8-7.7); Neutrophils % (Auto) 69 % (37-80); Nucleated Red Blood Cell # 0.00 Thou/mm3 (0.00-0.00); Nucleated Red Blood Cell % 0 /100 WBC (0); Platelet Count 448 Thou/mm3 (140-440); RDW Standard Deviation 44.1 fL (36.4-46.3); Red Blood Count 3.93 Miln/mm3 (4.00-5.20); White Blood Count 10.2 Thou/mm3 (3.6-11.0)
[2025-06-21 06:27] LABS: Alanine Aminotransferase 30 U/L (10-49); Albumin, Serum 4.0 gm/dL (3.5-5.0); Albumin/Globulin Ratio 1.3 (1.2-2.2); Alkaline Phosphatase 132 U/L (46-116); Anion Gap 9 (7-16); Aspartate Amino Transferase 16 U/L (0-34); BUN/Creatinine Ratio 20 Ratio (12-20); Bilirubin,Total 0.4 mg/dL (0.3-1.2); Blood Urea Nitrogen 16 mg/dL (9-23); Calcium 9.6 mg/dL (8.3-10.6); Calcium (Corrected) 9.6 mg/dL (8.5-10.1); Carbon Dioxide 26.7 mMol/L (20.0-31.0); Chloride 103 mMol/L (98-107); Creatinine (Component) 0.8 mg/dL (0.6-1.3); Estimated Creatinine Clearance 110.1 mL/min (>60); Globulin 3.2 gm/dL (2.3-3.5); Glucose 141 mg/dL (74-106); Magnesium 1.7 mg/dL (1.6-2.6); Osmolality,Calculated 280 (275-295); Phosphorous 4.5 mg/dL (2.4-5.1); Potassium 4.3 mMol/L (3.4-5.1); Sodium 139 mMol/L (136-145); Total Protein 7.2 gm/dL (5.7-8.2); eGFR > 60 See Note
[2025-06-21] MEDS: ENOXAPARIN SOD INJ 40 MG/0.4 ML SYRINGE SC (09:13)
[2025-06-21] MEDS: GABAPENTIN 100 MG CAPSULE 200 MG PO ×2 (09:14→21:30)
[2025-06-21] MEDS: Vancomycin Inj 1,500 MG in SODIUM CHLORIDE 0.9% 500 ML 500 ML 120 MG IV (09:47)
--- NOTE | 2025-06-21 10:04 | ESDS_ITS ---
<Statement entered by Alexis Black MD - 06/21/25 14:19> Note reviewed and agree with care plan as documented. Please refer to the note below for further details. Plan discussed with attending physician Dr. Kishore Black MD PGY-2 Internal Medicine Planned Discharge Date 06/21/25 DS: Providers Provider Date of admission: 06/12/25 22:33 Primary care physician: Physician No Primary/Family Admitting Provider: Oracio Wesley MD Attending Provider on Admission: Paty De Jesus DO Consults: 06/12/25 21:54 Consult to Orthopedic Stat Comment: Septic joint, AVM Consulting Provider: Louie Miller 06/14/25 17:45 Consult to Infectious Diseases Routine Comment: Septic Artheritis of the Rt ankle Consulting Provider: Bc Lloyd 06/17/25 12:38 Referral Physical Therapy Routine Comment: Physician Instructions: Instructions: assist and evaluation of ambulation Attending Provider on DC: Lemuel Novak MD Discharging Provider: Lemuel Novak MD DS: Diagnosis Problem List Completed Was Problem List Reviewed/Reconciled?: Yes Hospital Course Hospital Course Hospital course: Patient is a 49-year-old female with a history of [id number] T2DM, hypertension, hyperlipidemia, arthritis, and GERD who presented to [facility] ED on 06/12 for right ankle pain and swelling. Patient was admitted for osteomyelitis and septic arthritis rule out. Patient has had this swelling since November 2024 with MRI 01/2025 showing large effusion without acute processes. During this hospitalization, Right ankle XR was taken showing bony erosions involving dome of the talus and distal articular surface of the tibia with large ankle effusion, suspicious for osteomyelitis. Patient endorsed fevers at home but did not have fevers this admission. Patient?s ESR, CRP and WBC were elevated. Joint aspiration was done but, due to issue with transferring correctly to the lab, we were unable to get an analysis of the joint fluid. Patient was seen by Orthopedic surgeon Dr. Miller and he performed a right ankle open I&D. Blood cultures grew staph aureus and patient was started on vancomycin. Patient had cultures re-drawn 2 days after which resulted negative before placing a PICC line for the patient to go home with and continue vancomycin outpatient with the help of home health through July 11, 2025. Discharge Instructions: ? Continue taking Vancomycin up until 07/11 with home health ? Recommend using Tylenol and/or Schaller for pain control and hold taking ibuprofen until you follow-up with your PCP ? Continue taking all other home medications as prescribed ? Recommend obtaining weekly blood panels (CBC, renal panel, ESR/CRP) per infectious disease recommendations ? Follow-up with PCP within 1-2 weeks of discharge ? Follow-up with orthopedic surgeon within 1-2 weeks of discharge ? If you do not have a PCP, you can follow-up at the [facility] (you can call [phone] to make an appointment) ? Return to ED if symptoms worsen or recur #Septic Arthritis of right ankle #Osteomyelitis of right ankle #Charcot Ankle #Staph aureus bacteremia #Non-insulin dependent type 2 diabetes mellitus #Hypertension #Hyperlipidemia #GERD #Leukocytosis #Anemia, normocytic Patient plan of care was discussed with the attending physician, Dr. Novak & senior resident Dr. Freddie Aldridge MD PGY-1 Time Spent with Patient Time attestation: Total time spent providing and/or coordinating discharge services: Time spent: Greater than 30 minutes Home Health Home Health Referral Orders: 06/19/25 09:25 Home Health Referral Routine Reason For Exam: septic arthritis of right ankle Home-Bound The patient must either because of illness or injury, need the aid of suppor tive devices such as crutches, canes, wheelchairs, and walkers; the use of special transportation; or the assistance of another person in order to leave their place of residence; OR have a conditi on such that leaving his or her home is medically contraindicated. In addition, the patient also meets the following criteria: patient is normally unable to leave the home and leaving home requires considerable taxing effort. Addendum to Home Health Certification Practitioner's Certification: I certify that the patient has been under my care in the hospital and the care of attending physician (see below). We had a [id number] encounter on (see date below). My clinical findings indicate that the patient is home bound per the above criteria and the Home Health Services noted in these orders are medically necessary. The primary reason for the [id number] encounter is related to the fact that the patient requires home health services. Date Certifying Uhev-[id number] Physician Encounter: 06/12/25 Physician's Name who will Assume Oversight for Services: Paris Oropeza Physician's Phone No.who will Assume Oversight for Service: WATER RESOURCE PROJECT MANAGER - Community Resources: No PT to Evaluate: Yes PT to evaluate and provide a treatmnet plan to increase patient's mobility and strength. Wound Care: Yes Home Health RN - Wound Care Order: as per wound care nurse IV Therapy: Yes: weekly cbc, renal panel, ESR, vancomycin trough for dosing IV Medication: Vancomcyin (pharmacy to dose) IV Dose: 1500 IV Frequency: BID IV Stop Date: 07/11/25 Discontinue PICC Line Once Treatment Complete: Yes RN Safety Evaluation: Yes RN to evaluate and create a plan of care that will produce positive outcomes. Palliative Treatment: No Palliative treatment and evaluate the need for hospice. Home Health Aide - Personal Care: Yes Home Health Aide to assist with any ADL's. Exam Vital Signs Temp Pulse Resp BP Pulse Ox O2 Del Method O2 Flow Rate 97.5 F 82 18 132/64 H 95 Room Air 4 06/21/25 07:45 06/21/25 09:14 06/21/25 07:45 06/21/25 09:14 06/21/25 07:45 06/21/25 07:45 06/15/25 16:23 Narrative Exam General: No acute distress; A&Ox3 Skin: R ankle erythema decreased. No other rashes or skin breakages noted HENT: NCAT, EOMI/PERRL, not icteric. External ears normal. No rhinorrhea. Moist mucous membranes Cardiovascular: Regular rate and rhythm, no murmur, +S1/S2. Respiratory: Lungs CTAB GI: Soft, nontender, non-distended. No guarding or rebound tenderness. : No suprapubic tenderness. No flank tenderness bilaterally. Extremities: R foot swelling and erythema improved; R ankle wrapped and in cast, clean and dry. no cyanosis, no clubbing. Extremity pulses present Neuro: Grossly nonfocal. Moving all 4 extremities. CN not formally tested but appear grossly intact. Psychiatric: Cooperative, appropriate affect. Discharge Plan Plan Patient Disposition: Home w/HOME HEALTH Patient condition on transfer: Stable Care Plan Goals: ? Continue taking vancomycin up until 07/11 ? Recommend using Tylenol and/or Schaller for pain control and hold taking ibuprofen until you follow-up with your PCP ? Continue taking all other home medications as prescribed ? Recommend obtaining weekly blood panels (CBC, renal panel, ESR/CRP) per infectious disease recommendations ? Follow-up with PCP within 1-2 weeks of discharge ? Follow-up with orthopedic surgeon within 1-2 weeks of discharge ? If you do not have a PCP, you can follow-up at the [facility] (you can call [phone] to make an appointment) ? Return to ED if symptoms worsen or recur Prescriptions/Referrals Prescriptions/Med Rec: New vancomycin 1.5 gram recon soln 1.5 g IV Q12H 21 Days Continued metformin [Glucophage] 500 MG tablet 500 mg PO BID Qty: 0 Pantoprazole Sodium 40 MG TABLET.DR 40 mg PO DAILY Qty: 0 hydrocodone-acetaminophen 5-325 mg tablet 1 tab PO Q12H PRN (Reason: pain) Patient Comments: TAKE 1 TABLET BY MOUTH EVERY 6 HOURS NEEDED FOR 30 DAYS phenazopyridine 100 mg tablet 100 mg PO Q8H Patient Comments: TAKE 1 TABLET BY MOUTH 3 TIMES A DAY simvastatin 10 mg tablet 10 mg PO HS Patient Comments: TAKE 1 TABLET BY MOUTH DAILY IN THE EVENING lisinopril 10 mg tablet 10 mg PO QDAY Patient Comments: TAKE 1 TABLET BY MOUTH DAILY Held ibuprofen 800 mg Tablet 800 mg PO TID Hold Instructions: Hold until you follow-up with PCP. Referrals: No Primary/Family,Physician [Primary Care Provider] Patient/Caregiver Discharge Instructions Print Language: Sami Stand Alone Forms: Katerina Award Info., Patient Portal Info Letter Quality Discharge Quality Measures VTE prophylaxis Attestestation MD Attestation I have examined the patient, reviewed labs and imaging findings, discussed the case with the resident(s), and reviewed entered orders. I agree with the plan of care as outlined in this note. Time Spent: [address] Kishore MD
--- NOTE | 2025-06-21 11:09 | PC.SS ---
follow up note: SS spoke to patient who states she's decided to now d/c to SNF short term. She is aware that she may have a co-pay with her insurance for HH. She feels more comfortable discharging to a SNF short term until iv. antibiotics are completed. SS will present it to SnF and insurance co. SS expressed this is not a guarantee for acceptance and approval. Patient aware. SS will send it out as an inquiry.
[2025-06-21] MEDS: ATORVASTATIN CALCIUM 10 MG TABLET 5 MG PO (21:30)
[2025-06-21] MEDS: Vancomycin Inj 1,500 MG in SODIUM CHLORIDE 0.9% 500 ML 500 ML 250 MG IV (21:30)
[2025-06-22] VITALS (7 sets, daily range): BP systolic 96–132; BP diastolic 55–81; PULSE 70–92; RESP 16–98; TEMP 36.2–36.3; O2SAT 95–100
[2025-06-22 05:39] LABS: Basophils # (Auto) 0.1 Thou/mm3 (0.0-0.2); Basophils % (Auto) 1 % (0-2.5); Eosinophils # (Auto) 0.3 Thou/mm3 (0.0-0.5); Eosinophils % (Auto) 3 % (0-10); Hematocrit 33.9 % (36.0-46.0); Hemoglobin 11.1 g/dL (12.0-16.0); Immature Granulocytes Auto 0.11 Thou/mm3 (0.00-0.00); Lymphocytes # (Auto) 2.4 Thou/mm3 (1.0-4.8); Lymphocytes % (Auto) 21 % (10-50); Mean Corpuscular HGB Conc 32.7 g/dl (31.0-37.0); Mean Corpuscular Hemoglobin 28.0 pg (25.0-35.0); Mean Corpuscular Volume 86 fL (80-100); Monocytes # (Auto) 0.9 Thou/mm3 (0.0-0.8); Monocytes % (Auto) 8 % (0-12); Neutrophils # (Auto) 7.8 Thou/mm3 (1.8-7.7); Neutrophils % (Auto) 68 % (37-80); Nucleated Red Blood Cell # 0.00 Thou/mm3 (0.00-0.00); Nucleated Red Blood Cell % 0 /100 WBC (0); Platelet Count 448 Thou/mm3 (140-440); RDW Standard Deviation 43.8 fL (36.4-46.3); Red Blood Count 3.96 Miln/mm3 (4.00-5.20); White Blood Count 11.6 Thou/mm3 (3.6-11.0)
[2025-06-22 06:19] LABS: Alanine Aminotransferase 29 U/L (10-49); Albumin, Serum 4.0 gm/dL (3.5-5.0); Albumin/Globulin Ratio 1.3 (1.2-2.2); Alkaline Phosphatase 130 U/L (46-116); Anion Gap 11 (7-16); Aspartate Amino Transferase 18 U/L (0-34); BUN/Creatinine Ratio 20 Ratio (12-20); Bilirubin,Total 0.4 mg/dL (0.3-1.2); Blood Urea Nitrogen 16 mg/dL (9-23); Calcium 9.6 mg/dL (8.3-10.6); Calcium (Corrected) 9.6 mg/dL (8.5-10.1); Carbon Dioxide 23.5 mMol/L (20.0-31.0); Chloride 103 mMol/L (98-107); Creatinine (Component) 0.8 mg/dL (0.6-1.3); Estimated Creatinine Clearance 110.1 mL/min (>60); Globulin 3.1 gm/dL (2.3-3.5); Glucose 136 mg/dL (74-106); Magnesium 1.5 mg/dL (1.6-2.6); Osmolality,Calculated 277 (275-295); Phosphorous 4.9 mg/dL (2.4-5.1); Potassium 4.6 mMol/L (3.4-5.1); Sodium 137 mMol/L (136-145); Total Protein 7.1 gm/dL (5.7-8.2); eGFR > 60 See Note
[2025-06-22] MEDS: ENOXAPARIN SOD INJ 40 MG/0.4 ML SYRINGE SC (08:35)
[2025-06-22] MEDS: GABAPENTIN 100 MG CAPSULE 200 MG PO (08:36)
[2025-06-22] MEDS: HYDROcodone/APAP 5/325 TABLET 1 TAB PO ×2 (08:42→15:35)
[2025-06-22] MEDS: MAGNESIUM OXIDE 400 MG TABLET PO (09:40)
[2025-06-22 09:48] LABS: Vancomycin,Trough 19.6 mcg/mL (5.0-10.0)
--- NOTE | 2025-06-22 10:08 | ESDS_ITS ---
<Statement entered by Alexis Black MD - 06/22/25 15:32> Note reviewed and agree with care plan as documented. Please refer to the note below for further details. Plan discussed with attending physician Dr. Kishore Black MD PGY-2 Internal Medicine Planned Discharge Date 06/22/25 DS: Providers Provider Date of admission: 06/12/25 22:33 Primary care physician: Physician No Primary/Family Admitting Provider: Oracio Wesley MD Attending Provider on Admission: Paty De Jesus DO Consults: 06/12/25 21:54 Consult to Orthopedic Stat Comment: Septic joint, AVM Consulting Provider: Louie Miller 06/14/25 17:45 Consult to Infectious Diseases Routine Comment: Septic Artheritis of the Rt ankle Consulting Provider: Bc Lloyd 06/17/25 12:38 Referral Physical Therapy Routine Comment: Physician Instructions: Instructions: assist and evaluation of ambulation Attending Provider on DC: Otoniel Hdez MD Discharging Provider: Otoniel Hdez MD DS: Diagnosis Problem List Completed Was Problem List Reviewed/Reconciled?: Yes Hospital Course Hospital Course Hospital course: Patient is a 49-year-old female with a history of [id number] T2DM, hypertension, hyperlipidemia, arthritis, and GERD who presented to [facility] ED on 06/12 for right ankle pain and swelling. Patient was admitted for osteomyelitis and septic arthritis rule out. Patient has had this swelling since November 2024 with MRI 01/2025 showing large effusion without acute processes. During this hospitalization, Right ankle XR was taken showing bony erosions involving dome of the talus and distal articular surface of the tibia with large ankle effusion, suspicious for osteomyelitis. Patient endorsed fevers at home but did not have fevers this admission. Patient?s ESR, CRP and WBC were elevated. Joint aspiration was done but, due to issue with transferring correctly to the lab, we were unable to get an analysis of the joint fluid. Patient was seen by Orthopedic surgeon Dr. Miller and he performed a right ankle open I&D. Blood cultures grew staph aureus and patient was started on vancomycin. Patient had cultures re-drawn 2 days after which resulted negative before placing a PICC line for the patient to go home with and continue vancomycin outpatient with the help of home health through July 11, 2025. Patient was planned to be DC'd 06/21, but decided to go to SNF and is being discharged 06/22 currently to SNF. Discharge Instructions: ? Continue taking Vancomycin up until 07/11 with home health ? Recommend using Tylenol and/or Dulce for pain control and hold taking ibuprofen until you follow-up with your PCP ? Continue taking all other home medications as prescribed ? Recommend obtaining weekly blood panels (CBC, renal panel, ESR/CRP) per infectious disease recommendations ? Follow-up with PCP within 1-2 weeks of discharge ? Follow-up with orthopedic surgeon within 1-2 weeks of discharge ? If you do not have a PCP, you can follow-up at the [facility] (you can call [phone] to make an appointment) ? Return to ED if symptoms worsen or recur #Septic Arthritis of right ankle #Osteomyelitis of right ankle #Charcot Ankle #Staph aureus bacteremia #Non-insulin dependent type 2 diabetes mellitus #Hypertension #Hyperlipidemia #GERD #Leukocytosis #Anemia, normocytic Patient plan of care was discussed with the attending physician, Dr. Novak & senior resident Dr. Freddie Aldridge MD PGY-1 Time Spent with Patient Time attestation: Total time spent providing and/or coordinating discharge services: Time spent: Greater than 30 minutes Exam Vital Signs Temp Pulse Resp BP Pulse Ox O2 Del Method O2 Flow Rate 97.2 F 84 16 132/75 H 100 Room Air 4 06/22/25 08:00 06/22/25 08:34 06/22/25 08:00 06/22/25 08:34 06/22/25 08:00 06/22/25 08:00 06/15/25 16:23 Narrative Exam General: No acute distress; A&Ox3 Skin: R ankle erythema decreased. No other rashes or skin breakages noted HENT: NCAT, EOMI/PERRL, not icteric. External ears normal. No rhinorrhea. Moist mucous membranes Cardiovascular: Regular rate and rhythm, no murmur, +S1/S2. Respiratory: Lungs CTAB GI: Soft, nontender, non-distended. No guarding or rebound tenderness. : No suprapubic tenderness. No flank tenderness bilaterally. Extremities: R foot swelling and erythema decreased; R ankle wrapped and in cast, clean and dry. no cyanosis, no clubbing. Extremity pulses present Neuro: Grossly nonfocal. Moving all 4 extremities. CN not formally tested but appear grossly intact. Psychiatric: Cooperative, appropriate affect. Discharge Plan Plan Patient Disposition: Home w/HOME HEALTH Patient condition on transfer: Stable Care Plan Goals: ? Continue taking vancomycin up until 07/11 ? Recommend using Tylenol and/or Dulce for pain control and hold taking ibuprofen until you follow-up with your PCP ? Continue taking all other home medications as prescribed ? Recommend obtaining weekly blood panels (CBC, renal panel, ESR/CRP) per infectious disease recommendations ? Follow-up with PCP within 1-2 weeks of discharge ? Follow-up with orthopedic surgeon within 1-2 weeks of discharge ? If you do not have a PCP, you can follow-up at the [facility] (you can call [phone] to make an appointment) ? Return to ED if symptoms worsen or recur Prescriptions/Referrals Prescriptions/Med Rec: New vancomycin 1.5 gram recon soln 1.5 g IV Q12H 21 Days Continued metformin [Glucophage] 500 MG tablet 500 mg PO BID Qty: 0 Pantoprazole Sodium 40 MG TABLET.DR 40 mg PO DAILY Qty: 0 hydrocodone-acetaminophen 5-325 mg tablet 1 tab PO Q12H PRN (Reason: pain) Patient Comments: TAKE 1 TABLET BY MOUTH EVERY 6 HOURS NEEDED FOR 30 DAYS phenazopyridine 100 mg tablet 100 mg PO Q8H Patient Comments: TAKE 1 TABLET BY MOUTH 3 TIMES A DAY simvastatin 10 mg tablet 10 mg PO HS Patient Comments: TAKE 1 TABLET BY MOUTH DAILY IN THE EVENING lisinopril 10 mg tablet 10 mg PO QDAY Patient Comments: TAKE 1 TABLET BY MOUTH DAILY Held ibuprofen 800 mg Tablet 800 mg PO TID Hold Instructions: Hold until you follow-up with PCP. Referrals: No Primary/Family,Physician [Primary Care Provider] Patient/Caregiver Discharge Instructions Education Materials: Sepsis, Osteomyelitis Dc, Understanding Sepsis Print Language: Sammarinese Stand Alone Forms: Katerina Award Info., Patient Portal Info Letter Discharge Order Discharge Orders: Discharge (Routine); Ordered 06/22/25 Ordered By: Alexis Frazier Rust Quality Discharge Quality Measures VTE prophylaxis Attestestation Attestation I have examined the patient, reviewed labs and imaging findings, discussed the case with the resident(s), and reviewed entered orders. I agree with the plan of care as outlined in this note. Time Spent: [address] Kishore MD
[2025-06-22] MEDS: Vancomycin Inj 1,500 MG in SODIUM CHLORIDE 0.9% 500 ML 500 ML 120 MG IV (10:40)
== END 2025-06-22 16:06 | disposition skilled nursing facility (03) | DRG 549 ==
LOC: SERX 22:43 → SERHOLD 22:53 → S3SX 23:42
PROVIDERS: Emergency Medicine; Internal Medicine Infectious Disease; Nurse Practitioner Family; Orthopaedic Surgery Adult Reconstructive Orthopaedic Surgery; Radiology Diagnostic Radiology; Admitting Provider Internal Medicine; Visit Provider Internal Medicine
DX: M00.9 Pyogenic arthritis, unspecified (principal); M86.171 Other acute osteomyelitis, right ankle and foot; Z68.41 Body mass index [BMI] 40.0-44.9, adult; R78.81 Bacteremia; M25.471 Effusion, right ankle; I10 Essential (primary) hypertension; E66.9 Obesity, unspecified; K21.9 Gastro-esophageal reflux disease without esophagitis; M10.9 Gout, unspecified; E11.610 Type 2 diabetes mellitus with diabetic neuropathic arthropathy; D63.8 Anemia in other chronic diseases classified elsewhere; E11.69 Type 2 diabetes mellitus with other specified complication; E78.5 Hyperlipidemia, unspecified; Z79.84 Long term (current) use of oral hypoglycemic drugs; Z79.899 Other long term (current) drug therapy; B95.61 Methicillin susceptible Staphylococcus aureus infection as the cause of diseases classified elsewhere
CPT/HCPCS: 36415; 71045; 73610; 73721; 80053; 80061; 80202; 81001; 82945; 83036; 83605; 83615; 83735; 83880; 84100; 84145; 84315; 84550; 85025; 85610; 85652; 85730; 86140; 86703; 86803; 87040; 87070; 87075; 87077; 87086; 87186; 87205; 89051; 93005; 93971; 96365; 97162; 99284; A4217; A4649; C1751; C1894; J0131; J1100; J1171; J1642; J1650; J1815; J1885; J2405; J2543; J2704; J3010; J3373; J3374; J3475; J3490; J7050; J7120; J7999; A9270

== ENCOUNTER 2025-07-04 09:19 | Outpatient (AMB) | payer BC, SELFPAY ==
[2025-07-04 09:34] VITALS: BP 100/69; PULSE 79; RESP 18; TEMP 36.3; O2SAT 99; BMI 41.8
--- NOTE | 2025-07-04 09:34 | PD.ORTHCLVIS ---
Vital signs 07/04/25 09:34 Height 1.65 m Height Method Stated Weight 113.852 kg Weight Measurement Method Estimated by Patient BMI 41.8 BP 100/69 Blood Pressure Source Automatic Cuff Blood Pressure Location Left Upper Arm Position Sitting Respiration 18 Pulse 79 Pulse Source Monitor Temp 97.3 F Temp Source Temporal Artery Scan Pulse Oximetry (%) 99 Oxygen Delivery Method Room Air Med/Allergies Allergies & Medications Allergies latex Allergy (Severe, Verified 07/04/25 09:35) CRACKS SKIN OPEN Medication Reconciliation Pantoprazole Sodium 40 mg PO DAILY ##0 09/08/10 [History Confirmed 07/04/25] metformin 500 mg tablet (Glucophage) 500 mg PO BID ##0 09/08/10 [History Confirmed 07/04/25] ibuprofen 800 mg tablet 800 mg PO TID 03/03/18 [History Confirmed 07/04/25] Held on 06/20/25. Instructions: Hold until you follow-up with PCP. hydrocodone 5 mg-acetaminophen 325 mg tablet 1 tab PO Q12H PRN pain 06/13/25 [History Confirmed 07/04/25] lisinopril 10 mg tablet 10 mg PO QDAY 06/13/25 [History Confirmed 07/04/25] phenazopyridine 100 mg tablet 100 mg PO Q8H 06/13/25 [History Confirmed 07/04/25] simvastatin 10 mg tablet 10 mg PO HS 06/13/25 [History Confirmed 07/04/25] vancomycin 1.5 gram intravenous solution 1.5 g IV Q12H Osteomyelitis, septic arthritis 21 days 06/20/25 [Rx Confirmed 07/04/25] Exam Exam Patient is in no acute distress and is cooperative with the examination today. Patient has a normal mood and affect. Breathing is nonlabored. In no respiratory distress. Bilateral extremities were evaluated and demonstrates sensation intact to light touch. Palpable pedal pulses are present. No significant edema is present. Right ankle incision is clean dry and intact. Stitches were removed Assessment and Plan Problem List (1) Septic arthritis of ankle: Status: Acute Plan: Patient is a 49-year-old female with a septic ankle on the right side. Her stitches were removed today. She is doing well and is on antibiotics. Pain is well-controlled at this time. We will fill out her disability paperwork Office Procedures GNS Level of Care Nursing/Assessment Patient Status: Established Patient Nursing Assessment/Reassesment: Medication Reconciliation, Update PMH in EMR and Vital Signs Coordination of Care: Complex Care and Chronic Disease 1-5, Education Complex Pt/Fam, Consent,records obtained, informed consent, Results/Orders obtained and Staff clarify orders Established Patient Charge Established Patient Point Assignment: 95 Established Patient Point Charge: EP Level 3 (80-115) MA Intake Visit Data Collection New Patient or Established: Established Patient (seen at [facility] within 3 years) Reason for Visit:: 2 WK POST OP Seen by Clinical Staff ONLY (RN/MA): No PCP or OBGYN visit in last 3 months: Yes Hx Now: No Do You Feel Safe at Home: Yes Authorities Contacted: N/A Questionairres Past Medical History Past Medical History Have you ever been diagnosed with any of the following: Neurological Problems Seizures: No Cardiology Problems Hypercholesterolemia: Yes Congestive Heart Failure: No Hypertension: Yes Respiratory Problems Chronic Obstructive Pulmonary Disease (COPD): No Stomache/Intestinal Problems Gastroesophageal Reflux Disease: Yes Genital/Urinary Problems Renal Disease: No Musculoskeletal Problems Arthritis: Yes Endocrine Problems Diabetes Mellitus Type 1: No Diabetes Mellitus Type 2: Yes Other Problems Blood Transfusions: No Blood Transfusion Reaction: No Anesthesia Reactions: No Subjective Visit Visit for: follow up visit Immunization / Flu Flu Vaccine in the Last 12 Months: No Flu Vaccine Exclusion Criteria: No Exclusion Criteria History of Present Illness Chief complaint: 2 WK POST OP Tricia is 2 weeks postop status post right septic ankle washout. She reports that the pain is significantly better than before surgery. She reports minimal pain and is on Tylenol only Pain Pain level (0-10): 0 Ambulatory data Ambulatory device: other (specify) (WHEEL CHAIR) Treatments Improvement with previous injections: No Improvement with PT: No Improvement with NSAIDS: no Review of Systems Review of Systems: All systems negative unless otherwise noted in HPI.
== END 2025-07-04 09:50 | disposition home or self-care (01) ==
LOC: HODSRG 09:19
PROVIDERS: Supervising Provider Orthopaedic Surgery Adult Reconstructive Orthopaedic Surgery; Visit Provider Orthopaedic Surgery Adult Reconstructive Orthopaedic Surgery
DX: Z48.89 Encounter for other specified surgical aftercare (principal); I10 Essential (primary) hypertension; E11.9 Type 2 diabetes mellitus without complications; Z79.84 Long term (current) use of oral hypoglycemic drugs
CPT/HCPCS: 99213; G0463